=== PATIENT | female | born 1935 | race Caucasian/White ===

== ENCOUNTER 2019-03-20 23:50 | Inpatient (IN) | payer SELFPAY ==
--- NOTE | 2019-03-21 | ED ---
Abdominal Pain/Female - HPI Summary HPI Summary: Per son who is acting as bombsight specialist for patient, patient complains of sudden onset nausea and abdominal pain while sitting down to dinner tonight at a restaurant with subsequent vomiting. One episode of diarrhea this morning. Unsure of bowel movements over the past couple days. Denies fever, cough, sore throat, CP, SOB, change in urine. Medical history is hypertension, prior TIA. Son states patient currently anticoagulated for TIA. - History of Current Complaint Stated Complaint: NAUSEA PER PT Hx Obtained From: Family/Fur Finisher Tailor Onset/Duration: Sudden Onset, Lasting Hours Severity Initially: Moderate Severity Currently: Moderate Pain Intensity: 6 Pain Scale Used: 0-10 Numeric Location: Diffuse Radiates: No Character: Sharp, Cramping Aggravating Factor(s): Nothing Alleviating Factor(s): Nothing Associated Signs and Symptoms: Positive: Nausea, Vomiting, Diarrhea Allergies/Adverse Reactions: Allergies Allergy/AdvReac Type Severity Reaction Status Date / Time ibuprofen [From Advil] Allergy Unknown Verified 03/21/19 00:03 Reaction Details Home Medications: Home Medications NIFEdipine [Nifedipine ER] 60 mg PO SEE INSTRUCTIONS 03/21/19 [History Confirmed 03/21/19] Omeprazole 1 tab PO DAILY 03/21/19 [History Confirmed 03/21/19] Sandoz Cardio 100 mg PO DAILY 03/21/19 [History Confirmed 03/21/19] Travoprost/Timolol 1 drop BOTH EYES DAILY 03/21/19 [History Confirmed 03/21/19] PMH/Surg Hx/FS Hx/Imm Hx Endocrine/Hematology History: Reports: Hx Anticoagulant Therapy Cardiovascular History: Denies: Hx Pacemaker/ICD History: Reports: Hx Dialysis Sensory History: 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 Opthamlomology History: 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 Neurological History: Reports: Hx Transient Ischemic Attacks (TIA) Infectious Disease History: No Infectious Disease History: Reports: Traveled Outside the in Last 30 Days - [place] - Family History Known Family History: Positive: Non-Contributory - Social History Alcohol Use: Occasionally Hx Substance Use: No Hx Tobacco Use: No Review of Systems Constitutional: Negative Eyes: Negative ENT: Negative Cardiovascular: Negative Respiratory: Negative Positive: Abdominal Pain, Vomiting, Diarrhea, Nausea Genitourinary: Negative Musculoskeletal: Negative Skin: Negative Neurological: Negative Psychological: Normal All Other Systems Reviewed And Are Negative: Yes Physical Exam Triage Information Reviewed: Yes Vital Signs On Initial Exam: Initial Vitals Temp Pulse Resp BP Pulse Ox 97.8 F 54 18 87/60 97 03/20/19 23:51 03/20/19 23:51 03/20/19 23:51 03/20/19 23:51 03/20/19 23:51 Vital Signs Reviewed: Yes Appearance: Positive: Well-Appearing Skin: Positive: Warm Head/Face: Positive: Normal Head/Face Inspection Eyes: Positive: Normal Neck: Positive: Supple Respiratory/Lung Sounds: Positive: Clear to Auscultation Cardiovascular: Positive: Normal Abdomen Description: Positive: Other: - Diffuse abdominal pain with palpation. Musculoskeletal: Positive: Normal Neurological: Positive: Normal Psychiatric: Positive: Normal AVPU Assessment: Alert - [place] Coma Scale Best Eye Response: 4 - Spontaneous Best Motor Response: 6 - Obeys Commands Best Verbal Response: 5 - Oriented Coma Scale Total: 15 Procedures - Sedation Patient Received Moderate/Deep Sedation with Procedure: No Diagnostics - Vital Signs Vital Signs Temp Pulse Resp BP Pulse Ox 03/20/19 23:51 97.8 F 54 18 87/60 97 - Laboratory Result Diagrams: 03/22/19 04:37 03/22/19 04:37 Lab Statement: Any lab studies that have been ordered have been reviewed, and results considered in the medical decision making process. Re-Evaluation - Re-Evaluation First Eval Re-Evaluation Time: 05:50 Comment: CT concerning for colitis. Given flagyl. Also possible cholecystitis but neg murphys on exam. Admit to [facility] Abdominal Pain Fem Course/Dx - Course Course Of Treatment: Per son who is acting as bombsight specialist for patient, patient complains of sudden onset nausea and abdominal pain while sitting down to dinner tonight at a restaurant with subsequent vomiting. One episode of diarrhea this morning. Unsure of bowel movements over the past couple days. Denies fever, cough, sore throat, CP, SOB, change in urine. Medical history is hypertension, prior TIA. Son states patient currently anticoagulated for TIA. BP 87/60. Vital signs otherwise within normal limits. WBC 11.2. Labs otherwise unremarkable. Urine pending. CT abdomen and pelvis with contrast pending. CT abdomen and pelvis positive for colitis and possible cholelithiasis. Admitted to hospitalist. - Diagnoses Provider Diagnoses: Colitis Discharge ED - Sign-Out/Discharge Documenting (check all that apply): Sign-Out Patient Signing out patient TO: Marsha Wei - Discharge Plan Condition: Stable Disposition: ADMITTED TO [facility] - Billing Disposition and Condition Condition: STABLE Disposition: Admitted to [facility] - Attestation Statements Provider Attestation: I agree with the documentation of the PANTERA. I have seen the patient, please see my note in the chart. Marsha Wei MD
[2019-03-21] MEDS ORDERED: NS 0.9% 1000 ML** 1,000 ML IV ONE ×2 (00:06→11:09)
[2019-03-21] MEDS ORDERED: Ondansetron INJ* 2 MG/ML VIAL IV ONE (00:06)
[2019-03-21 01:01] LABS: ABS Lymphocytes 0.5 10^3/ul (1.0-4.8); ABS Monocytes 0.3 10^3/ul (0-0.8); ABS Neutrophils 10.5 10^3/ul (1.5-7.7); Hematocrit 34 % (35-47); Hemoglobin 11.5 g/dL (12.0-16.0); Mean Corpuscular HGB Conc 34 g/dL (31-36); Mean Corpuscular Hemoglobin 27 pg (27-31); Mean Corpuscular Volume 81 fL (80-97); Platelet Count 238 10^3/uL (150-450); Red Blood Count 4.22 10^6 /uL (3.70-4.87); Red Cell Distribution Width 14 % (10-15); White Blood Count 11.2 10^3/uL (3.5-10.8)
[2019-03-21 01:16] LABS: C Reactive Protein 1.28 mg/L (<8.01)
[2019-03-21] MEDS ORDERED: Morphine 4 MG/ML VIAL (1 ml) 4 MG/ML VIAL IV ONE (01:57)
[2019-03-21 02:06] LABS: Urine Appearance Turbid; Urine Bacteria 1+ (Absent); Urine Bilirubin Negative (Negative); Urine Blood 2+ (Negative); Urine Color Amber; Urine Glucose Negative (Negative); Urine Ketones Trace (Negative); Urine Nitrite Positive (Negative); Urine Protein Negative (Negative); Urine Red Blood Cell Trace(0-2/hpf) (Absent); Urine Specific Gravity 1.016 (1.010-1.030); Urine Squamous Epithelial Cell Present (Absent); Urine Urobilinogen Negative (Negative); Urine White Blood Cell 3+(>20/hpf) (Absent)
--- NOTE | 2019-03-21 02:37 | ED ---
Progress - Progress Note Progress Note: This pt is a sign out from Cirilo Espino at shift change [address] A/P and disposition. - Results/Orders Results/Orders: Her Gallbladder US found that she has the followin. Cholelithiasis. No abnormal thickening of the gallbladder wall. Negative sonographic Conti's sign. 2. Multiple echogenic foci scattered throughout the liver parenchyma. Recommend CT abdomen with contrast using a hepatic protocol. Abdomen/Pelvis CT: 1. There is excess salt thickening noted of the cecum and ascending colon with surrounding inflammatory changes. The cecum is noted to be dilated measuring approximately 6.7 x 5.2 CM. There is question of pneumatosis noted in the cecum. Findings are concerning for colitis. 2. There is wall thickening noted of the gallbladder with a large gallstone noted within the gallbladder. Findings are concerning for acute cholecystitis. Recommend hepatobiliary scan for further evaluation. 3. There is a compression deformity noted of the L1 vertebral body which appears to be chronic in nature recommend clinical correlation for point tenderness MRI may be performed for further evaluation. Re-Evaluation - Re-Evaluation First Eval Re-Evaluation Time: 05:50 Comment: CT concerning for colitis. Given flagyl. Also possible cholecystitis but neg murphys on exam. Admit to [facility] Course/Dx - Diagnoses Provider Diagnoses: Colitis Discharge ED - Sign-Out/Discharge Documenting (check all that apply): Patient Departure - admitted, Receiving Sign -Out Receiving patient FROM: Cirilo Espino - Discharge Plan Condition: Stable Disposition: ADMITTED TO [facility] Prescriptions: Ondansetron ODT TAB* [Zofran 4 MG Odt TAB*] 4 mg PO Q8H PRN 4 Days #14 tab.odt PRN Reason: Nausea Referrals: No Primary Care Phys,NOPCP [Primary Care Provider] - - Billing Disposition and Condition Condition: STABLE Disposition: Admitted to [facility] - Attestation Statements Document Initiated by Scribe: Yes Documenting Scribe: Magdaleno Nowak Provider For Whom Ayush is Documenting (Include Credential): Marsha Wei MD Scribe Attestation: Magdaleno Easton scribed for Marsha Wei MD on 03/21/19 at 0605. Scribe Documentation Reviewed: Yes Provider Attestation: The documentation as recorded by the Magdaleno sparrow accurately reflects the service I personally performed and the decisions made by me, Marsha Wei MD Status of Scrmarisela Document: Viewed
[2019-03-21] MEDS ORDERED: cefTRIAXone(*) 1 GM in NS 0.9% 50 ML* 50 ML IVPB ONE (02:38)
[2019-03-21 03:04] LABS: Albumin 3.9 g/dL (3.2-5.2); BUN/Creatinine Ratio 38.8 (8-20); Calcium 8.7 mg/dL (8.6-10.3); EGFR African American 51.4 (>60); EGFR Non-African American 42.5 (>60); Globulin 3.9 g/dL (2-4); Total Bilirubin 0.4 mg/dL (0.2-1.0); Total Protein 7.8 g/dL (6.4-8.9)
[2019-03-21] MEDS ORDERED: Iodixanol* (CONTRAST) 320 MG/ML 100 ML SDV IV ONE (03:13)
[2019-03-21] MEDS ORDERED: metroNIDAZOLE IV 500 MG/100ML* 500 MG/100 ML BAG IVPB ONE (05:58)
[2019-03-21] MEDS ORDERED: Ondansetron INJ* 2 MG/ML VIAL IV PRN (08:47)
[2019-03-21] MEDS ORDERED: Acetaminophen TAB* 325 MG PO PRN (08:47)
[2019-03-21] MEDS ORDERED: Piperacillin/Tazobac ADVAN(*) 3.375 GM in NS 0.9% 100 ML* 100 ML IVPB ONE (08:58)
[2019-03-21] MEDS ORDERED: Pantoprazole IV* 40 MG IV SCH (09:00)
[2019-03-21] MEDS ORDERED: NS 0.9% 1000 ML** 1,000 ML IV SCH ×2 (09:00→10:53)
[2019-03-21] MEDS ORDERED: Zosyn per Pharmacy* NOTE FOLLOW UP SCH (09:00)
[2019-03-21 09:17] LABS: ABS Lymphocytes 0.4 10^3/ul (1.0-4.8); ABS Monocytes 0.3 10^3/ul (0-0.8); ABS Neutrophils 14.5 10^3/ul (1.5-7.7); Hematocrit 34 % (35-47); Hemoglobin 11.5 g/dL (12.0-16.0); Lymphocyte % 2.5 %; Mean Corpuscular HGB Conc 34 g/dL (31-36); Mean Corpuscular Hemoglobin 27 pg (27-31); Mean Corpuscular Volume 81 fL (80-97); Mean Platelet Volume 7.3 fL (7.4-10.4); Platelet Count 226 10^3/uL (150-450); Red Blood Count 4.21 10^6 /uL (3.70-4.87); Red Cell Distribution Width 15 % (10-15); White Blood Count 15.2 10^3/uL (3.5-10.8)
[2019-03-21 09:32] LABS: Albumin 3.4 g/dL (3.2-5.2); Albumin/Globulin Ratio 0.9 (1-3); BUN/Creatinine Ratio 38.4 (8-20); Calcium 8.1 mg/dL (8.6-10.3); EGFR African American 56.2 (>60); EGFR Non-African American 46.5 (>60); Globulin 3.6 g/dL (2-4); Indirect Bilirubin 0.2 mg/dL (0.3-1.0); Magnesium 1.6 mg/dL (1.9-2.7); Potassium 3.7 mmol/L (3.5-5.0); Total Bilirubin 0.3 mg/dL (0.2-1.0)
[2019-03-21 09:33] LABS: Activated Partial Thrombo Time 28.5 seconds (26.0-38.0); INR 1.08 (0.82-1.09)
[2019-03-21] MEDS ORDERED: NIFEdipine ER TAB* 60 MG PO SCH (10:00)
[2019-03-21] MEDS ORDERED: Lidocaine 2% PF * 5 ML VIAL ONE (11:38)
[2019-03-21] MEDS ORDERED: Succinylcholine* 20 MG/ML 10 ML VIAL ONE (11:38)
[2019-03-21] MEDS ORDERED: Propofol* 10 MG/ML 20 ML BTL ONE (11:38)
[2019-03-21] MEDS ORDERED: Rocuronium* 10 MG/ML VIAL ONE (11:38)
[2019-03-21] MEDS: ZOSYN 3.375 GM Q8H per EXTENDED INFUSION IVPB SCH ×4 (12:48→21:26)
[2019-03-21] MEDS ORDERED: KETAMINE HCL* 50 MG/ML 10 ML VIAL ONE (13:17)
[2019-03-21] MEDS ORDERED: fentaNYL* 50 MCG/ML 2 ML VIAL (100 MCG VIAL) ONE (13:17)
[2019-03-21] MEDS ORDERED: HYDROmorphone INJ1* 1 MG/ML SYRINGE ONE (13:55)
[2019-03-21] MEDS ORDERED: Heparin VIAL(*) 5000 UNITS/ML VIAL (FIVE THOUSAND) SUBCUT SCH (14:00)
[2019-03-21] MEDS ORDERED: Bupivacaine 0.5%* 50 ML MDV VIAL ONE (14:02)
[2019-03-21] MEDS ORDERED: Phenylephrine 40 MCG/ML SYRINGE ONE (14:14)
[2019-03-21] MEDS ORDERED: fentaNYL* 50 MCG/ML 2 ML VIAL (100 MCG VIAL) IV PRN (14:59)
[2019-03-21] MEDS ORDERED: Acetaminophen IV 1GM/100ML * 1,000 MG/100 ML VIAL IVPB ONE (14:59)
[2019-03-21] MEDS ORDERED: HYDROmorphone INJ1* 1 MG/ML SYRINGE IV PRN (14:59)
[2019-03-21] MEDS ORDERED: DiMENhydriNATE IV* 50 MG/ML VIAL IV PUSH PRN (14:59)
[2019-03-21] MEDS ORDERED: Naloxone* 0.4 MG/ML 1 ML VIAL IV PRN (14:59)
--- NOTE | 2019-03-21 15:29 | HP ---
HISTORY AND PHYSICAL: DATE OF ADMISSION: 03/21/19 CHIEF COMPLAINT: Abdominal pain, nausea, and vomiting. SUBJECTIVE: This is an 84-year-old female who is here visiting from [place] and staying with her son here in [place]. She has been in the [place] for about a week and her son states that she was within her usual state of health up until this afternoon. They touring the city tour here in [place]. They went to one of the state choud[place], had breakfast earlier this morning (some bagel and cream cheese), they skipped lunch, and they were heading toward a restaurant to have dinner. As soon as they arrived to the restaurant and prior to ordering any food, the patient reported to her son that she was having a uneasy feeling in her stomach, some nauseous and abdominal pain. They excused themselves from the restaurant and while she was still in the care on her way to the hotel she was dry heaving. When they arrived to the hotel she had 1 episode of bilious vomiting. She started complaining to the son of feeling dizzy, lightheaded, increased abdominal pain, and the son brought her to the ER to be evaluated. She was seen in our emergency room around midnight 00:00. At that time, she was giving some Zofran and they were thinking to discharge her home on oral Bactrim for a presumed UTI. She had further abdominal pain and vomit in the emergency room. Hence a CT scan of the abdomen and pelvis was ordered at 1:30 in the morning and the report revealed "excess thickening of the cecum and ascending colon with some surrounding inflammatory changes with the cecum dilated measuring up to 6.7 x 5.2 cm with some pneumatosis in the cecum concerning for colitis..." and there was some regarding thickening of the gallbladder with large gallstone. Then the patient was kept in the emergency room and her care was transferred to the new emergency room provider at 2:30 am. The ultrasound of the gallbladder report revealed cholelithiasis without any evidence of cholecystitis. She was given ceftriaxone, Flagyl, was medicated for her pain and the [facility] hospitalist service was called for admission. I received a sign out to evaluate the patient in the ER pending admission. She was seen and evaluated by me and history was obtained from the son at bedside, who was assisting with the translation, his name is Stan, and his phone number is [phone]. History was obtained with some difficulty, but was able to confirm the below: The patient apparently had similar episode about a year and a half ago in [place] where she had similar symptoms at that time. She was advised for elective cholecystectomy, and also she had a colonoscopy for what "similar abdominal pain" and she was treated with antibiotic and was discharged. No surgery at that time was performed. The son had no further knowledge about her medical history as he has not seen her and he has not had any record available at his disposal at this time. He did tell that she did not follow up as instructed to evaluate her gallbladder nor did she have any further testing that he knew of. PAST MEDICAL HISTORY: 1. Hypertension 2. History of TIA. 3. History of glaucoma. 4. History of hospitalization about one and a half years ago in [place] for similar episode that yielded known gallbladder disease that required elective surgery and some bowel inflammation, which required colonoscopy that led to treatment with IV antibiotic for which he could not give me any further detail. 5. Hyperlipidemia. 6. GERD. MEDICATIONS: Her medication reviewed by me: 1. Nifedipine 60 mg daily. 2. Atorvastatin 20 mg at bedtime. 3. Losartan 50 mg daily. 4. Toprol-XL 50 mg daily. 5. Omeprazole 20 daily. 6. Travoprost/timolol 1 drop each eye at bedtime. FAMILY HISTORY: Unknown to the son other than they were healthy both her parents. SOCIAL HISTORY: No alcohol. No tobacco use. No drugs. She is . Five kids visiting from [place], not [place] speaker. REVIEW OF SYSTEMS: Acute nausea, vomiting, abdominal pain. Remaining limited to the HPI given the language barrier PHYSICAL EXAMINATION GENERAL: She is awake, alert, oriented, in mild distress given her abdominal pain and GI symptoms. VITAL SIGNS: Blood pressure 111/61, pulse 98, temperature 97.8, satting 94%. HEAD AND NECK: Normocephalic, atraumatic. supple, no carotid bruit, no JVD LUNGS: Clear to auscultation. no rhonchi, no wheezing. good air flow CARDIOVASCULAR: S1, S2. Tachycardic. No murmur. ABDOMEN: Tender in the right lower quadrant on palpation, positive rebound. She does have negative Conti sign. bowel sound diminished EXTREMITIES: No pedal edema. Moving upper and lower extremity. RAW MATERIAL PLANNER: There is no motor or focal sensory deficit. Moving upper and lower extremity. DIAGNOSTIC STUDIES/LAB DATA: ER Work up CBC - White count 11.2, hemoglobin 11.4, hematocrit 34, platelets 238. BMP -Sodium 131, potassium 4, chloride 102, bicarb 20, BUN 47, creatinine 1.2, glucose 150, calcium 8.4. LFT- Total bili 0.4, AST 16, ALT 8, lipase 43, CRP 1.38. Urinalysis- 3+ leukocyte, 3+ WBC, 1+ bacteria. CT scan of abdomen and pelvis at 1:30 in the morning revealed excess thickening noted in the cecum and ascending colon with surrounding inflammatory changes with dilated cecum up to 6.7 and 5.2 cm and some wall thickening of the gallbladder. Gallbladder ultrasound performed at 2359 reveals cholelithiasis, no abdominal wall thickening. Negative Conti sign. IMPRESSION: This is an 84-year-old female who comes in with an acute abdominal pain, followed with nausea and vomiting. Her lab from midnight white count revealed 11.2 with mild hyponatremia and mild metabolic acidosis as manifested with a bicarb of 20 and acute kidney injury with BUN 47/1.2. She will be admitted for acute abdominal pain, most likely secondary to her colitis/ peritonitis and less likely from her cholecystitis. 1. Abdominal pain secondary to acute colitis with peritonitis sign. - The patient was seen by me as initial encounter in the emergency room around 8 a.m. History obtained via the help of her son that provided translation. - I am little concerned that her condition has slightly worsened than her initial presentation. (Given her clinical exam) - She is status post Rocephin and Flagyl, I am going to escalate her to Zosyn stat, then q.6 hours. - Start on IV fluid 1 L bolus then put her on 125 mL/h. - Send for repeat stat labs including CBC and chemistry, LFT as well as lactic acid. - Send for blood cultures stat. - EKG stat given her tachycardia - I consulted Surgery Dr. Garcia who was in the OR and I was able to be patched to him and I informed him about the consultation in the ER. - I consulted GI with Dr. Boss in the event the patient may require colonoscopy if the patient was nonsurgical (pending Dr. Garcia evaluation). - Of course she will be maintained n.p.o. and will follow up with surgery and GI recommendation. - Morphine p.r.n. 2 mg-4mg PRN pending severity. 2. Cholecystitis on her ultrasound. - I doubt that she does have an acute intervention given the negative exam, negative Conti. - Nonetheless n.p.o. - Surgery consultation as above. - IV fluids. - Zosyn. 3. Acute colitis with dilated cecum. - Surgical consult to see if she will benefit from surgical intervention versus medical management. - Dr. Garcia was notified. Unfortunately, he is in the surgery now, but I relayed the message to him for the consultation. - N.P.O. - IVF - Antibiotic as above with the Zosyn. 4. History of hypertension. We will continue her losartan with holding parameter, Metoprolol with holding parameter. 5. History of gastroesophageal reflux disease. Continue proton pump inhibitor , but we will place her on IV Protonix. 6. History of glaucoma. Continue travoprost. [id number]/[facility] #: [id number] ALEX
[2019-03-21] MEDS ORDERED: Sugammadex * 200 MG/2 ML VIAL IV PUSH ONE (15:32)
[2019-03-21] MEDS ORDERED: Ondansetron INJ* 2 MG/ML VIAL ONE (15:32)
--- NOTE | 2019-03-21 16:14 | BRIEFOPN ---
Brief Operative/Procedure Note - Operation Details Pre-Op Diagnosis: Transmural necrosis, right colon Post-Op Diagnosis: as above Procedures: Exploratory laparotomy; right colectomy Surgeon(s)/Proceduralists: Dr. Garcia. Assist: OMEGA Patricia; ION Palma Anesthesia: GET; Dr. Singh Estimated Blood Loss: 100ml; IV Fluids: 2300ml crystalloid Findings: same as above Specimen(s)/Culture(s) Description: right colon Complications: none
[2019-03-21] MEDS ORDERED: Morphine INJ* 4 MG/ML 1 ML SYRINGE (NEW SYRINGE VERSION) IV PRN (17:53)
[2019-03-21] MEDS ORDERED: Acetaminophen SUPP* 650 MG SUPP PR PRN (17:57)
[2019-03-21] MEDS ORDERED: NS 0.9% IV SCH ×2 (18:00)
[2019-03-21] MEDS ORDERED: POTASSIUM CHLORIDE IV SCH ×2 (18:00)
[2019-03-21] MEDS: Famotidine IV* 10 MG/ML 2 ML (20 mg) IV SCH (18:15)
[2019-03-21 18:36] LABS: Urine Appearance Clear; Urine Bacteria Absent (Absent); Urine Bilirubin Negative (Negative); Urine Blood 1+ (Negative); Urine Color Yellow; Urine Glucose Negative (Negative); Urine Ketones Negative (Negative); Urine Nitrite Negative (Negative); Urine Protein 1+(30 mg/dL) (Negative); Urine Red Blood Cell 3+(>10/hpf) (Absent); Urine Specific Gravity 1.027 (1.010-1.030); Urine Urobilinogen Negative (Negative); Urine White Blood Cell 2+(11-20/hpf) (Absent)
--- NOTE | 2019-03-21 20:13 | PN ---
Date of Service: 03/21/19 Critical Care Services: 84 y/o [place] female (visiting [place]) underwent laparotomy today for suspected bowel ischemia and had a partial ritht colectomy - brought to ICU postop and has done well. Vital Signs: Temp Pulse Resp BP SpO2 FiO2 98.0 F 77 15 145/66 95 03/21/19 19:59 03/21/19 18:00 03/21/19 18:00 03/21/19 17:40 03/21/19 18:00 Physical Exam: Gen: HEENT: Lungs: Cardiac: Abdomen: Extremities: Neuro: Fluid Balance (Past 24 Hours): I= O= Net Intake & Output 03/19/19 03/20/19 03/21/19 03/22/19 06:59 06:59 06:59 06:59 Intake Total 1050 1500 Output Total 950 Balance 1050 550 Weight 138 lb 147 lb 7.828 oz Intake: IV Fluids 1050 1500 LR 1300 Output: Urine 400 Adan 450 Estimated Blood Loss 100 Other: Estimated Blood Loss per OR notes.Not observed by sign writer letterer or painter; hospital practice for AUTO GLASS TECHNICIAN to relay Comment Labs: Laboratory Results - last 24 hr 03/21/19 03/21/19 03/21/19 00:53 00:53 01:43 WBC 11.2 H RBC 4.22 Hgb 11.5 L Hct 34 L MCV 81 MCH 27 MCHC 34 RDW 14 Plt Count 238 MPV 7.0 L Neut % (Auto) 93.2 Lymph % (Auto) 4.0 Geary % (Auto) 2.5 Eos % (Auto) 0.0 Baso % (Auto) 0.3 Absolute Neuts (auto) 10.5 H Absolute Lymphs (auto) 0.5 L Absolute Monos (auto) 0.3 Absolute Eos (auto) 0.0 Absolute Basos (auto) 0.0 Absolute Nucleated RBC 0.0 Nucleated RBC % 0.0 INR (Anticoag Therapy) APTT Sodium 131 L Potassium 4.0 Chloride 102 Carbon Dioxide 20 L Anion Gap 9 BUN 47 H Creatinine 1.21 H Est GFR ( Amer) 51.4 Est GFR (Non-Af Amer) 42.5 BUN/Creatinine Ratio 38.8 H Glucose 150 H Lactic Acid Calcium 8.7 Phosphorus Magnesium Total Bilirubin 0.40 Direct Bilirubin Indirect Bilirubin AST 16 ALT 8 Alkaline Phosphatase 75 C-Reactive Protein 1.28 Total Protein 7.8 Albumin 3.9 Globulin 3.9 Albumin/Globulin Ratio 1.0 Amylase Lipase 43 Urine Color Lolly Urine Appearance Turbid Urine pH 6.0 Ur Specific Gate 1.016 Urine Protein Negative Urine Ketones Trace A Urine Blood 2+ A Urine Nitrate Positive A Urine Bilirubin Negative Urine Urobilinogen Negative Ur Leukocyte Esterase 3+ A Urine WBC (Auto) 3+(>20/hpf) A Urine RBC (Auto) Trace(0-2/hpf) Ur Squamous Epith Cells Present A Urine Bacteria 1+ A Urine Glucose Negative 03/21/19 03/21/19 03/21/19 08:59 09:05 09:05 WBC RBC Hgb Hct MCV MCH MCHC RDW Plt Count MPV Neut % (Auto) Lymph % (Auto) Geary % (Auto) Eos % (Auto) Baso % (Auto) Absolute Neuts (auto) Absolute Lymphs (auto) Absolute Monos (auto) Absolute Eos (auto) Absolute Basos (auto) Absolute Nucleated RBC Nucleated RBC % INR (Anticoag Therapy) 1.08 APTT 28.5 Sodium 133 L Potassium 3.7 Chloride 105 Carbon Dioxide 21 L Anion Gap 7 BUN 43 H Creatinine 1.12 H Est GFR ( Amer) 56.2 Est GFR (Non-Af Amer) 46.5 BUN/Creatinine Ratio 38.4 H Glucose 148 H Lactic Acid 0.9 Calcium 8.1 L Phosphorus 4.0 Magnesium 1.6 L Total Bilirubin 0.30 Direct Bilirubin 0.10 Indirect Bilirubin 0.2 L AST 14 ALT 8 Alkaline Phosphatase 56 C-Reactive Protein Total Protein 7.0 Albumin 3.4 Globulin 3.6 Albumin/Globulin Ratio 0.9 L Amylase 95 Lipase 39 Urine Color Urine Appearance Urine pH Ur Specific Gate Urine Protein Urine Ketones Urine Blood Urine Nitrate Urine Bilirubin Urine Urobilinogen Ur Leukocyte Esterase Urine WBC (Auto) Urine RBC (Auto) Ur Squamous Epith Cells Urine Bacteria Urine Glucose 03/21/19 03/21/19 09:05 18:13 WBC 15.2 H RBC 4.21 Hgb 11.5 L Hct 34 L MCV 81 MCH 27 MCHC 34 RDW 15 Plt Count 226 MPV 7.3 L Neut % (Auto) 95.2 Lymph % (Auto) 2.5 Geary % (Auto) 2.2 Eos % (Auto) 0.0 Baso % (Auto) 0.1 Absolute Neuts (auto) 14.5 H Absolute Lymphs (auto) 0.4 L Absolute Monos (auto) 0.3 Absolute Eos (auto) 0.0 Absolute Basos (auto) 0.0 Absolute Nucleated RBC 0.0 Nucleated RBC % 0.0 INR (Anticoag Therapy) APTT Sodium Potassium Chloride Carbon Dioxide Anion Gap BUN Creatinine Est GFR ( Amer) Est GFR (Non-Af Amer) BUN/Creatinine Ratio Glucose Lactic Acid Calcium Phosphorus Magnesium Total Bilirubin Direct Bilirubin Indirect Bilirubin AST ALT Alkaline Phosphatase C-Reactive Protein Total Protein Albumin Globulin Albumin/Globulin Ratio Amylase Lipase Urine Color Yellow Urine Appearance Clear Urine pH 6.0 Ur Specific Gate 1.027 Urine Protein 1+(30 mg/dl) A Urine Ketones Negative Urine Blood 1+ A Urine Nitrate Negative Urine Bilirubin Negative Urine Urobilinogen Negative Ur Leukocyte Esterase 1+ A Urine WBC (Auto) 2+(11-20/hpf) A Urine RBC (Auto) 3+(>10/hpf) A Ur Squamous Epith Cells Urine Bacteria Absent Urine Glucose Negative Plan: Critical Care Time:
--- NOTE | 2019-03-21 20:18 | CONS ---
CONSULTATION REPORT: DATE OF CONSULT: 03/21/19 REFERRING PROVIDER: Linus Fox MD, hospitalist. REASON FOR CONSULT: Abdominal pain, nausea, and vomiting. HISTORY OF PRESENT ILLNESS: The patient is an 84-year-old woman who is visiting from [place]. She does not speak Estonian, but is with her son. He lives in the [place] area and they were traveling through [place] on vacation when later in the day yesterday she was eating at a restaurant and she developed some nausea with some dry heaves as well as right-sided abdominal pain. They went back to the hotel and later in the evening she started to have worsening discomfort and had some vomiting and she presented to the emergency room here very early this morning. At that time, she was noted to be afebrile with essentially unremarkable vital signs other than slight tachycardia. She was noted to have right-sided abdominal discomfort. Laboratory workup included a white blood cell count of 11 ,000 and she was slightly anemic. Electrolytes, BUN and creatinine were remarkable for having a BUN and creatinine of 47 and 1.21 and a carbon dioxide of 20. Her C-reactive protein was unremarkable as well as her lipase. She gives a history through the son of having some possible gallbladder issues in the past where she was admitted to the hospital 1 year ago. We do not have these records and the son is not aware as he does not live with her and she may have been apparently treated with antibiotics, but it is unclear as to whether there was discussion regarding cholecystectomy or were there any colonic problems. She has been doing well since that time. She underwent a CT scan of the abdomen and pelvis later this morning. I did review all of these images. This shows wall thickening noted in the cecum and ascending colon with surrounding inflammatory changes. The cecum was dilated up to 6.7 cm and there was concern about possible pneumatosis in the cecum, also noted was some wall thickening of the gallbladder with a large gallstone within the gallbladder itself. There was no pericholecystic inflammation, however. The patient was admitted to the hospitalist service, started on IV antibiotics and IV fluids and surgical consultation was obtained this morning. PAST MEDICAL HISTORY: Taken mainly from the patient's son who speaks Estonian. 1. Hypertension. 2. History of TIA. 3. Possible gallbladder issue versus colitis with right-sided abdominal pain 1 year ago. 4. Glaucoma. 5. Hyperlipidemia. 6. GERD. MEDICATIONS: Include: 1. Nifedipine. 2. Atorvastatin. 3. Losartan. 4. Toprol. 5. Omeprazole. 6. Travoprost. 7. An antiplatelet agent. ALLERGIES: She is allergic to IBUPROFEN. SOCIAL HISTORY: She does not drink alcohol or use tobacco. She does not use illicit drugs. She is ; she has 5 children, and she is visiting from [place], and she does not speak Estonian. REVIEW OF SYSTEMS: Other than above taken from the son, no other pertinent positives. PHYSICAL EXAM: She was afebrile, pulse rate was in the mid 90s, systolic blood pressure 105. In general, she is an elderly female who appeared to be somewhat ill and quite fatigued and uncomfortable. Oral mucosa is quite dry. Trachea was midline. Lungs were clear to auscultation with diminished breath sounds at the bases. Heart was regular rate and rhythm without murmurs, rubs, or gallops. Her abdomen is distended and slightly firm. She has significant tenderness in the right lower quadrant with peritoneal irritation with peritoneal signs. She has tenderness in the left abdomen without peritoneal irritation, however. Psychiatric: She appears to be awake and alert. IMPRESSION: Rather sudden onset of right-sided abdominal discomfort with a leukocytosis. Repeat white blood cell count shows an elevation to 15 despite antibiotics. A lactic acid was unremarkable later in the emergency room and a C- reactive protein is normal. I reviewed the CT scan. This was very concerning for its appearance. This does not appear to be diverticulitis and is some sort of colitis and with her history, age and physical examination, I am concerned that this may be vascular etiology with ischemia of the intestine. It does not appear to be diverticulitis and also does not appear to be infectious, as she is having no diarrhea or bloody diarrhea or crampy pain. I discussed all of this with the patient and her son at length here on the floor. She has peritonitis mainly in the right side of the abdomen and with her constellation of symptoms and the CT scan findings, I feel strongly and recommend that she undergo an emergent exploratory laparotomy. Concern obviously is bowel ischemia, which can be obviously life-threatening. After our discussion, the patient gives her consent after discussion with her son who is acting as her fashion patternmaker and we will continue our fluid resuscitation, transfer to the intensive care unit and plan for surgery early this afternoon. PLAN: Exploratory laparotomy, possible bowel resection, possible cholecystectomy and possible ostomy today. The procedure was discussed with the patient and her son, and the risks of, but not limited to, bleeding, infection, intraabdominal abscess formation, injury to peritoneal and retroperitoneal structures, possibility of an ostomy which most likely be temporary, the risk of sepsis, , pulmonary failure, renal insufficiency, and blood clots were all explained. They understand and give their consent to proceed. [id number]/[facility] #: [id number] ALEX
[2019-03-21] MEDS: NS 0.9% IV SCH (20:34)
[2019-03-21] MEDS: POTASSIUM CHLORIDE IV SCH (20:34)
--- NOTE | 2019-03-21 20:47 | PN ---
Date of Service: 03/21/19 Critical Care Services: 84 y/o Ethiopian female admitted last night with abdominal pain and ? bowel ischemia underwent lapareotomy today with partial right colectomy and cholecystectomy. Brought to ICU postop and has done well. Vital Signs: Temp Pulse Resp BP SpO2 FiO2 98.0 F 81 17 136/69 96 Physical Exam: Gen:Resting comfortably Lungs: Clear Cardiac: No murmurs Abdomen: Surgical dressing intact. Extremities: No cyanosis or edema Fluid Balance (Past 24 Hours): 03/19/19 03/20/19 03/21/19 06:59 06:59 06:59 Intake Total 1050 Output Total Balance 1050 Weight 138 lb Intake: IV Fluids 1050 LR Output: Urine Adan Estimated Blood Loss Other: Estimated Blood Loss Comment Labs: Laboratory Results - last 24 hr 03/21/19 03/21/19 03/21/19 00:53 00:53 01:43 WBC 11.2 H RBC 4.22 Hgb 11.5 L Hct 34 L MCV 81 MCH 27 MCHC 34 RDW 14 Plt Count 238 MPV 7.0 L Neut % (Auto) 93.2 Lymph % (Auto) 4.0 Riley % (Auto) 2.5 Eos % (Auto) 0.0 Baso % (Auto) 0.3 Absolute Neuts (auto) 10.5 H Absolute Lymphs (auto) 0.5 L Absolute Monos (auto) 0.3 Absolute Eos (auto) 0.0 Absolute Basos (auto) 0.0 Absolute Nucleated RBC 0.0 Nucleated RBC % 0.0 INR (Anticoag Therapy) APTT Sodium 131 L Potassium 4.0 Chloride 102 Carbon Dioxide 20 L Anion Gap 9 BUN 47 H Creatinine 1.21 H Est GFR ( Amer) 51.4 Est GFR (Non-Af Amer) 42.5 BUN/Creatinine Ratio 38.8 H Glucose 150 H Lactic Acid Calcium 8.7 Phosphorus Magnesium Total Bilirubin 0.40 Direct Bilirubin Indirect Bilirubin AST 16 ALT 8 Alkaline Phosphatase 75 C-Reactive Protein 1.28 Total Protein 7.8 Albumin 3.9 Globulin 3.9 Albumin/Globulin Ratio 1.0 Amylase Lipase 43 Urine Color Lolly Urine Appearance Turbid Urine pH 6.0 Ur Specific [place] 1.016 Urine Protein Negative Urine Ketones Trace A Urine Blood 2+ A Urine Nitrate Positive A Urine Bilirubin Negative Urine Urobilinogen Negative Ur Leukocyte Esterase 3+ A Urine WBC (Auto) 3+(>20/hpf) A Urine RBC (Auto) Trace(0-2/hpf) Ur Squamous Epith Cells Present A Urine Bacteria 1+ A Urine Glucose Negative 03/21/19 03/21/19 03/21/19 08:59 09:05 09:05 WBC RBC Hgb Hct MCV MCH MCHC RDW Plt Count MPV Neut % (Auto) Lymph % (Auto) Riley % (Auto) Eos % (Auto) Baso % (Auto) Absolute Neuts (auto) Absolute Lymphs (auto) Absolute Monos (auto) Absolute Eos (auto) Absolute Basos (auto) Absolute Nucleated RBC Nucleated RBC % INR (Anticoag Therapy) 1.08 APTT 28.5 Sodium 133 L Potassium 3.7 Chloride 105 Carbon Dioxide 21 L Anion Gap 7 BUN 43 H Creatinine 1.12 H Est GFR ( Amer) 56.2 Est GFR (Non-Af Amer) 46.5 BUN/Creatinine Ratio 38.4 H Glucose 148 H Lactic Acid 0.9 Calcium 8.1 L Phosphorus 4.0 Magnesium 1.6 L Total Bilirubin 0.30 Direct Bilirubin 0.10 Indirect Bilirubin 0.2 L AST 14 ALT 8 Alkaline Phosphatase 56 C-Reactive Protein Total Protein 7.0 Albumin 3.4 Globulin 3.6 Albumin/Globulin Ratio 0.9 L Amylase 95 Lipase 39 Urine Color Urine Appearance Urine pH Ur Specific [place] Urine Protein Urine Ketones Urine Blood Urine Nitrate Urine Bilirubin Urine Urobilinogen Ur Leukocyte Esterase Urine WBC (Auto) Urine RBC (Auto) Ur Squamous Epith Cells Urine Bacteria Urine Glucose 03/21/19 03/21/19 09:05 18:13 WBC 15.2 H RBC 4.21 Hgb 11.5 L Hct 34 L MCV 81 MCH 27 MCHC 34 RDW 15 Plt Count 226 MPV 7.3 L Neut % (Auto) 95.2 Lymph % (Auto) 2.5 Riley % (Auto) 2.2 Eos % (Auto) 0.0 Baso % (Auto) 0.1 Absolute Neuts (auto) 14.5 H Absolute Lymphs (auto) 0.4 L Absolute Monos (auto) 0.3 Absolute Eos (auto) 0.0 Absolute Basos (auto) 0.0 Absolute Nucleated RBC 0.0 Nucleated RBC % 0.0 INR (Anticoag Therapy) APTT Sodium Potassium Chloride Carbon Dioxide Anion Gap BUN Creatinine Est GFR ( Amer) Est GFR (Non-Af Amer) BUN/Creatinine Ratio Glucose Lactic Acid Calcium Phosphorus Magnesium Total Bilirubin Direct Bilirubin Indirect Bilirubin AST ALT Alkaline Phosphatase C-Reactive Protein Total Protein Albumin Globulin Albumin/Globulin Ratio Amylase Lipase Urine Color Yellow Urine Appearance Clear Urine pH 6.0 Ur Specific [place] 1.027 Urine Protein 1+(30 mg/dl) A Urine Ketones Negative Urine Blood 1+ A Urine Nitrate Negative Urine Bilirubin Negative Urine Urobilinogen Negative Ur Leukocyte Esterase 1+ A Urine WBC (Auto) 2+(11-20/hpf) A Urine RBC (Auto) 3+(>10/hpf) A Ur Squamous Epith Cells Urine Bacteria Absent Urine Glucose Negative Studies: None Impression: Satisfactory postop course Plan: 1. Empiric antibiotics 2. NPO for now 3. Maintenance IV fluids Critical Care Time: 40 minutes
[2019-03-21] MEDS: TRAVOPROST BOTH EYES SCH (21:29)
[2019-03-21] MEDS: TIMOLOL BOTH EYES SCH (21:29)
--- NOTE | 2019-03-22 00:08 | OP ---
DATE OF OPERATION: 03/21/19 - ROOM #446 DATE OF : 37 SURGEON: Spencer Garcia MD RELIGIOUS EDUCATION DIRECTOR: OMEGA Roche ANESTHESIOLOGIST: Dr. Garcia. ANESTHESIA: General with local. PRE-OP DIAGNOSIS: Right-sided abdominal pain. POST-OP DIAGNOSES: 1. Right-sided abdominal pain. 2. 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 OPERATIVE PROCEDURE: Exploratory laparotomy with right hemicolectomy with anastomosis. IV FLUIDS: 2300 cc of lactated Ringers. ESTIMATED BLOOD LOSS: 100 cc. URINE OUTPUT: 400 cc. SPECIMENS: Right colon. DRAINS: None. WOUND CLASSIFICATION: IV. COMPLICATIONS: None. FINDINGS: The cecum was transmurally infarcted without evidence of perforation. There appeared to be also chronic inflammatory change with significant omental adhesions to the colon and anterior abdominal wall on the right side of the abdominal wall. In addition, the gallbladder was identified. It showed no evidence of acute inflammation, however, was quite full of what appeared to be stones and/or a thick type of sludge, but was not distended. There was no pericholecystic fluid or inflammation and this was not removed. DESCRIPTION OF PROCEDURE: Written informed consent was obtained, the abdomen was marked with indelible ink and preoperative antibiotics were administered. The patient was taken to the operating room and placed in the supine position. Sequential compression devices and warming blanket were applied. General anesthesia was administered. A Adan catheter had previously been inserted. The abdomen was prepped and draped in usual sterile fashion. A time-out verification was completed. A midline incision centered around the umbilicus was made and then carried down to the midline fascia and the peritoneal cavity was entered under direct vision. The incision was extended both superiorly and inferiorly. Upon entering the abdomen, there was some purulent, turbid fluid, mainly in the right side of the abdomen and up over the liver. This was irrigated. We were able to elevate the omentum up out of the abdomen and small bowel was evaluated and went from the ligament of Treitz down to the cecum and it was unremarkable. Liver was unremarkable. The gallbladder was palpated and visualized. It was whitish in colon, but it was without inflammation or thick wall, but it was packed with what appeared to be stones, one big stone or thick firm sludge. The liver was unremarkable. The stomach was unremarkable. We then turned our attention to the right lower quadrant. At this point, there appeared to be a significant amount chronic inflammatory process from the omentum and the colon to the lateral anterior abdominal wall. We were then able to visualize the cecum and extending up on the ascending colon there was noted to be transmural necrosis with gangrene without evidence of perforation of the cecum and proximal ascending colon. With some difficulty due to some chronic appearing adhesions, I was able to mobilize the cecum off the lateral abdominal wall taking down the peritoneal attachments. This was extended up to the hepatic flexure, was subsequently mobilized. I identified the right ureter and this was protected from injury throughout as well as identifying the duodenum and protecting this from injury throughout. At about the hepatic flexure, the colon appeared to be normal and we mobilized the transverse colon to its proximal third. This was also viable and healthy appearing pink. The terminal ileum as well appeared to be unremarkable. An area well to the right of the middle colic vessels was then identified and the colon here was divided with a LEON-80 stapler. Likewise, the terminal ileum was divided with a LEON stapler 4 to 5 cm proximal to the ileocecal valve. The mesentry of the right colon was then mobilized and was divided with the LigaSure device. The ileocolic vessels had a very weak pulse and these were cut and clamped and oversewn with a 2-0 Vicryl suture. At this point, with these findings and no evidence of inflammation or acute findings of the gallbladder, I made a decision not to proceed with an open cholecystectomy. Also, a decision was then made to proceed with an anastomosis as the ileum and the transverse colon appeared to be pink and viable. There was no further evidence of ischemia and thus a side to side terminal ileum to transverse colostomy was then performed using the LEON-80 stapler and the common rent was closed with the TA-90 blue load. Staple lines were oversewn with 3-0 silk suture. The mesenteric rent was closed with a running 3-0 Vicryl suture. Once again, we then proceeded to irrigate all 4 quadrants of abdomen thoroughly with significant amount of saline. No other abnormalities were noted. The anastomosis was placed back in the right upper quadrant and covered with omentum. All sponge, needle, lap counts were all reported to me as correct. The midline incision was closed with interrupted #1 Vicryl suture. The skin was approximated with a stapling device. Dry sterile dressings were applied. The patient tolerated procedure well and was taken to the recovery room in stable condition. [id number]/[facility] #: [id number] ALEX
[2019-03-22 04:44] LABS: ABS Lymphocytes 0.6 10^3/ul (1.0-4.8); ABS Monocytes 0.4 10^3/ul (0-0.8); ABS Neutrophils 10.1 10^3/ul (1.5-7.7); Hematocrit 28 % (35-47); Hemoglobin 9.5 g/dL (12.0-16.0); Lymphocyte % 5.3 %; Mean Corpuscular HGB Conc 34 g/dL (31-36); Mean Corpuscular Hemoglobin 28 pg (27-31); Mean Corpuscular Volume 82 fL (80-97); Mean Platelet Volume 7.2 fL (7.4-10.4); Platelet Count 176 10^3/uL (150-450); Red Blood Count 3.43 10^6 /uL (3.70-4.87); Red Cell Distribution Width 15 % (10-15); White Blood Count 11.1 10^3/uL (3.5-10.8)
[2019-03-22] MEDS: POTASSIUM CHLORIDE IV SCH ×3 (04:52→21:34)
[2019-03-22] MEDS: NS 0.9% IV SCH ×3 (04:52→21:34)
[2019-03-22] MEDS: ZOSYN 3.375 GM Q8H per EXTENDED INFUSION IVPB SCH ×6 (04:53→21:42)
[2019-03-22 05:00] LABS: BUN/Creatinine Ratio 34.8 (8-20); Calcium 7.2 mg/dL (8.6-10.3); EGFR African American 56.2 (>60); EGFR Non-African American 46.5 (>60); Magnesium 1.7 mg/dL (1.9-2.7); Potassium 3.5 mmol/L (3.5-5.0)
[2019-03-22] MEDS: Heparin VIAL(*) 5000 UNITS/ML VIAL (FIVE THOUSAND) SUBCUT SCH ×3 (05:02→21:45)
[2019-03-22] MEDS: Famotidine IV* 10 MG/ML 2 ML (20 mg) IV SCH ×2 (05:02→18:42)
[2019-03-22] MEDS: Morphine INJ* 2 MG/ML 1 ML SYRINGE (TWO MG - NEW SYRINGE VERSION) IV PRN ×2 (05:17→10:32)
[2019-03-22] MEDS ORDERED: [UNRECOGNIZED DRUG - OTHER] PO SCH (09:00)
--- NOTE | 2019-03-22 10:44 | PN ---
Progress Note - Progress Note Date of Service: 03/22/19 SOAP: Subjective: Somewhat sleepy this morning but appears comfortable Pain controlled Objective: Temp Pulse Resp BP Pulse Ox 98.4 F 89 29 161/84 99 03/22/19 03:57 03/22/19 10:00 03/22/19 10:32 03/22/19 10:00 03/22/19 10:00 Intake & Output 03/20/19 03/21/19 03/22/19 03/23/19 06:59 06:59 06:59 06:59 Intake Total 1050 2912 Output Total 1500 125 Balance 1050 1412 -125 Weight 138 lb 156 lb 4.924 oz Intake: IV Fluids 1050 2688 LR 1300 NS (0.9%) 188 NS w/ 10K 1000 IVPB 224 ABX - ZOSYN 224 Output: NG Tube Drainage Amount 200 Urine 400 Adan 800 125 Estimated Blood Loss 100 Other: Estimated Blood Loss per OR notes.Not observed by advertising copy writer; hospital practice for PROCESSING OPERATOR to relay Comment PEX: Comfortable Lungs are clear, decreased breath sounds at the bases Cor is RRR Abd is soft and slightly distended. Dressing in place. No bowel sounds present Ext without edema Laboratory Results - last 24 hr 03/21/19 03/22/19 03/22/19 18:13 04:37 04:37 WBC 11.1 H RBC 3.43 L Hgb 9.5 L Hct 28 L MCV 82 MCH 28 MCHC 34 RDW 15 Plt Count 176 MPV 7.2 L Neut % (Auto) 90.7 Lymph % (Auto) 5.3 [place] % (Auto) 3.8 Eos % (Auto) 0.0 Baso % (Auto) 0.2 Absolute Neuts (auto) 10.1 H Absolute Lymphs (auto) 0.6 L Absolute Monos (auto) 0.4 Absolute Eos (auto) 0.0 Absolute Basos (auto) 0.0 Absolute Nucleated RBC 0.0 Nucleated RBC % 0.0 Sodium 136 Potassium 3.5 Chloride 113 H Carbon Dioxide 18 L Anion Gap 5 BUN 39 H Creatinine 1.12 H Est GFR ( Amer) 56.2 Est GFR (Non-Af Amer) 46.5 BUN/Creatinine Ratio 34.8 H Glucose 113 H Calcium 7.2 L Magnesium 1.7 L Urine Color Yellow Urine Appearance Clear Urine pH 6.0 Ur Specific [place] 1.027 Urine Protein 1+(30 mg/dl) A Urine Ketones Negative Urine Blood 1+ A Urine Nitrate Negative Urine Bilirubin Negative Urine Urobilinogen Negative Ur Leukocyte Esterase 1+ A Urine WBC (Auto) 2+(11-20/hpf) A Urine RBC (Auto) 3+(>10/hpf) A Urine Bacteria Absent Urine Glucose Negative Assessment: POD# 1 s/p exlap and right hemicolectomy for ischemia/necrosis of cecum and right colon Plan: IVF D/C NGT, ice chips IV abx for 48 hours H2 austen Subq heparin Transfer to [facility] today Discussed with Dr. Coyle Also discussed findings at surgery with both sons last night after operation and answered their questions.
[2019-03-22] MEDS ORDERED: Iodixanol* (CONTRAST) 320 MG/ML 100 ML SDV IV ONE (12:14)
[2019-03-22] MEDS: Aspirin 81 mg CHEW TAB* 81 MG TAB.CHEW PO SCH (13:40)
--- NOTE | 2019-03-22 14:34 | CONS ---
CC: Dr. Spencer Garcia * CONSULTATION REPORT: DATE OF CONSULT: 03/22/19 LOCATION: Currently in the ICU room 7, bed 1. PRIMARY CARE PROVIDER: She is traveling from [place]. No primary care provider here. REASON FOR CONSULT: Right lower extremity weakness. HISTORY OF PRESENT ILLNESS: Ms. Patterson is a very nice right-handed 84- year-old female who has a history of hypertension, hyperlipidemia, history of TIAs in the past and some chronic balance issues, who has been in her usual state of health, she is in the country visiting relatives and was here in the [facility] when yesterday she went to eat at around 5 p.m.; the son states that that is the last time he remembers seeing her walk normally. She occasionally needs to hold onto him for balance, but in general was able to walk on her own. She went into the restaurant, she started having abdominal pain, nausea, vomiting and was subsequently brought to the ER. In the ER, she was suspected of having ischemic colitis. She was initially seen at around midnight, but the CT of the abdomen showed excessive thickening of the cecum and ascending colon with some surrounding inflammatory changes. She apparently had a similar episode about a year and a half ago and was advised at that time for elective cholecystectomy. She was subsequently seen and evaluated and underwent surgery by Dr. Spencer Garcia. Dr. Boss was also consulted. Based on her findings, she was taken to surgery for laparotomy. She underwent exploratory laparotomy with a right colectomy and she did well during surgery. I did speak to Dr. Garcia. There was no unusual positioning for the surgery. She tolerated the surgery very well. Estimated blood loss was felt to be 100 mL. She received some fluids, but it was a relatively uneventful surgery. She was brought to the ICU and was very somnolent, but this morning as she was waking up, the nurses went to start to move her and both the patient and the nurses noted that she was not moving her right lower extremity and seemed to be very weak. She also apparently had some weakness in her right upper extremity with some drift, but it seemed to be stronger. There was no reported facial droop. There was no reported dysarthria , although it should be said that she only speaks [place] and her son had to translate for her, but he reported no changes in her voice. She had no vision symptoms. She had no left-sided symptoms. She does report a fall about a year or a year and a half ago, but no recent trauma to her head. She had no headache and no swallowing problems that she is aware of, although she is currently n.p.o. She has a history of TIAs, but no prior stroke like this in the past. Based on these findings, I was called by Dr. Coyle. I recommended that she be sent for a stat CT of the head as well as a CT angiogram of the head and neck. Because she underwent surgery and she was outside of the tPA window, she was not deemed a good candidate for tPA, but there was still the possibility that she could have a large vessel occlusion, so CT angiogram was done. I talked to Dr. Madera and reviewed the films. She had some atherosclerotic disease, but no evidence of large vessel occlusion or critical carotid stenosis. There was evidence of some white matter disease, but does not appear to be any evidence of acute changes to suggest an evolving infarct. There was no hemorrhage noted. When I evaluated her in the ICU, she had an NIH Stroke Scale of 3 with some mild drift in the right upper extremity and a significant drift in the right lower extremity. She denied any symptoms at the time that I evaluated. Her son was at the bedside. She is very alert, aware, and oriented x3. She is very clear, normally very active and understands what is going on. Telemetry has shown no evidence of atrial fibrillation. She denies any history of palpitations or chest pain. PAST MEDICAL HISTORY: As noted above. PAST SURGICAL HISTORY: She denies any surgical history prior to her surgery overnight. MEDICATIONS: As an outpatient include: 1. Travoprost/timolol eye drops. 2. Sandoz Cardio, which is a drug that is available in [place]. I reviewed this medication and looked it up. It apparently is used for both pain but also post-stroke and heart attack. It does have some aspirin in it. She takes 100 mg a day. 3. She is also on omeprazole. 4. Nifedipine 60 mg. 5. Zofran as needed. ALLERGIES: She is allergic to IBUPROFEN. FAMILY HISTORY: Noncontributory. No history of stroke or heart attacks. SOCIAL HISTORY: She lives in [place]. She is here visiting her son. She is traveling with her son, who lives in [place] as well. There is no history of tobacco use. She has history of very occasional rare social alcohol drinking. She is retired. PHYSICAL EXAM: Vital Signs: She has been 98.8, afebrile; heart rate 96 to 98; respirations 15 to 20; O2 sat is 91% to 96%; blood pressure 163/84 to 143/74. In general, she is a well-nourished, well-developed female, lying in the hospital bed. She is very pleasant. She is awake, alert. Her speech is fluent , but she only speaks [place]; her son translated. She is normocephalic, atraumatic. Sclerae are anicteric with cataracts noted. Mucous membranes are slightly dry. Oropharynx is clear. Nares are patent. Neck is supple. No thyromegaly. No carotid bruits. No meningismus. Chest: Clear to auscultation bilaterally. Cardiovascular is regular rate and rhythm without murmurs. Abdomen is somewhat tender status post surgery, bandaged. Extremities : There is 1+ edema in the feet bilaterally. Skin is warm and dry otherwise. On neurologic exam, she is awake, alert, and oriented x3. Her speech is fluent. There is no dysarthria. Her repetition is intact. Recall of recent and remote events is intact. Vocabulary is intact. Her mood is dysthymic. Affect, mood congruent. Cranial Nerves: Pupils are equally round and reactive to light and accommodation. Extraocular muscles are intact. There is no nystagmus appreciated. No diplopia. No ptosis noted. Her face is symmetric. Her facial sensation is intact. Her hearing is intact bilaterally. Her palate raises symmetrically. Tongue is midline. Sternocleidomastoid muscle and trapezius are 5/5. Motor Exam: She spontaneously moves all extremities. She has 5/5 strength in the upper extremities. There is very subtle drift in the right upper extremity. In the right lower extremity, she can lift her leg off the bed, but drops it after 3 or 4 seconds. Her left leg is 5/5, no drift. Tone is down in the right lower extremity. Otherwise, tone is normal. DTRs are 1+ at the biceps, triceps, and brachioradialis; 1+ at the patella; absent at the ankles; equivocal Babinski's. Sensation is intact to light touch and pinprick. There is no extinguishing double simultaneous light touch. There is no evidence of any neglect. Ixqtto-es-[id number] and rapid alternating movements are intact. Her hdhc-bj-ubea was intact on the left, surprisingly intact on the right except slow. There is no evidence of ataxia or dysmetria. Gait could not be tested at this time as she is postsurgical. DIAGNOSTIC STUDIES/LAB DATA: Lab work includes a white count of 11.1, hemoglobin 9.5, hematocrit 28. INR 1.08, PTT of 28.5. Chemistry: Chloride of 113, carbon dioxide 18, BUN 39, creatinine of 1.12, BUN/creatinine ratio of 34.8 , glucose of 113, calcium of 7.2, magnesium of 1.7. Amylase and lipase are normal. C-reactive protein of 1.28. LFTs are normal. Urine showed 1+protein, 1 + blood, 1+ leukocyte esterase, 2+ white blood cells, 3+ rbc's, absent bacteria. Imaging as noted above. ASSESSMENT AND PLAN: Mr. Patterson is an 84-year-old right-handed female who has a history of hyperlipidemia, hypertension, transient ischemic attacks in the past, on a medication from [place] that apparently has some antiplatelet properties, also on blood pressure medication, who was in the usual state of health when yesterday she developed acute onset of nausea, vomiting, abdominal pain. Her last normal was at around 5 p.m. yesterday per the son. She underwent laparotomy with right colectomy yesterday for ischemic colitis and this morning when she was waking up she noticed right lower extremity greater than right upper extremity weakness. Her right upper extremity weakness seems to be improving and almost resolved with some mild drift. She had an NIH Stroke Scale of 3 on my exam. CTs of the head show no obvious acute changes. I did review the films as well as talk to the radiologist. She does have atherosclerotic changes, but there is no evidence of hemodynamically significant carotid stenosis or large vessel intracranial thrombus. She is outside of the tPA window as her last normal was yesterday at 5 p.m. I suspect that she has suffered a subcortical stroke possibly in the left internal capsule. My suspicion for large vessel stroke is low given her presentation. At this point, I did speak with Dr. Garcia, who is okay starting a baby aspirin. I spoke of the risks and benefits to the son and I think that the benefits greatly outweigh the risks in this case, so we will start a baby aspirin. I am not going to start her on dual antiplatelet at this point given her recent surgery. I would strive for moderate blood pressure control and allow for some permissive hypertension. We will check lipids and add statin accordingly. She is a nondiabetic and nonsmoker. I defer management of her surgical issues and medical issues to surgeon and the agile qa tester. Once she is stable from a surgical standpoint, I would get Physical Therapy involved and she may be a good candidate for inpatient rehab as well. I am going to order an MRI of the brain as well as an echocardiogram to rule out any cardioembolic source and to confirm a stroke. I am also going to continue to monitor her on telemetry to look for any evidence of atrial fibrillation. We will continue to follow her closely and make further recommendations as necessary. Thank you for the opportunity to participate in the care of this very interesting patient. [id number]/[facility] #: [id number] ALEX
[2019-03-22 14:56] LABS: HDL Cholesterol 37.8 mg/dL
--- NOTE | 2019-03-22 15:45 | PN ---
Date of Service: 03/22/19 Critical Care Services: Patient had an uneventful evening but complained right-sided wekness this AM - physical exam confirms weakness in right leg and arm, and the working dx is acute stroke. CT of head is unrevealing. Has been seen by Dr. Ly of the neurology service. Vital Signs: Temp Pulse Resp BP SpO2 FiO2 98.8 F 98 26 155/81 92 Physical Exam: Gen:Alert, oriented HEENT:Pupils and corneals intact. Gag intact. Lungs: Clear Cardiac: No murmurs Abdomen: Not distended. Midline surgical dressing in place. Extremities: No cyanosis or edema. Neuro: Strength 1/4 in right leg and 3/4 in right arm. Fluid Balance (Past 24 Hours): 03/21/19 03/22/19 06:59 06:59 Intake Total 1050 2912 Output Total 1500 Balance 1050 1412 Weight 138 lb 156 lb Intake: IV Fluids 1050 2688 LR 1300 NS (0.9%) 188 NS w/ 10K 1000 IVPB 224 ABX - ZOSYN 224 Output: NG Tube Drainage Amount 200 Urine 400 Adan 800 Estimated Blood Loss 100 Other: Estimated Blood Loss per OR notes. Not observed by health underwriter; hospital practice for [employer]PER[employer] to relay Comment Labs: 03/21/19 03/22/19 03/22/19 18:13 04:37 04:37 WBC 11.1 H RBC 3.43 L Hgb 9.5 L Hct 28 L MCV 82 MCH 28 MCHC 34 RDW 15 Plt Count 176 MPV 7.2 L Neut % (Auto) 90.7 Lymph % (Auto) 5.3 [place] % (Auto) 3.8 Eos % (Auto) 0.0 Baso % (Auto) 0.2 Absolute Neuts (auto) 10.1 H Absolute Lymphs (auto) 0.6 L Absolute Monos (auto) 0.4 Absolute Eos (auto) 0.0 Absolute Basos (auto) 0.0 Absolute Nucleated RBC 0.0 Nucleated RBC % 0.0 Sodium 136 Potassium 3.5 Chloride 113 H Carbon Dioxide 18 L Anion Gap 5 BUN 39 H Creatinine 1.12 H Est GFR ( Amer) 56.2 Est GFR (Non-Af Amer) 46.5 BUN/Creatinine Ratio 34.8 H Glucose 113 H Calcium 7.2 L Magnesium 1.7 L Triglycerides 46 Cholesterol 69 LDL Cholesterol 22 HDL Cholesterol 37.8 Urine Color Yellow Urine Appearance Clear Urine pH 6.0 Ur Specific [place] 1.027 Urine Protein 1+(30 mg/dl) A Urine Ketones Negative Urine Blood 1+ A Urine Nitrate Negative Urine Bilirubin Negative Urine Urobilinogen Negative Ur Leukocyte Esterase 1+ A Urine WBC (Auto) 2+(11-20/hpf) A Urine RBC (Auto) 3+(>10/hpf) A Urine Bacteria Absent Urine Glucose Negative Studies: CTA of head and neck Nutrition: Has been NPO Impression: Apparent acute ischemic stroke in the post-op period following a partial right colectomy. Patient is doing well at this time. Plan: 1. Start ASA for antiplatelet effects 2. Keep SBP < 185 mm Hg 3. Physical therapy 4. Advance oral diet Patient's sons present today and are aware of the new dx and management plan. Critical Care Time: 40 minutes
[2019-03-22] MEDS: TIMOLOL BOTH EYES SCH (21:49)
[2019-03-22] MEDS: TRAVOPROST BOTH EYES SCH (21:49)
[2019-03-23] MEDS ORDERED: Digoxin TAB* 0.25 MG ONE (02:14)
[2019-03-23] MEDS ORDERED: Digoxin IV* 0.5 MG/2 ML AMP (0.25 MG/ML) ONE (02:17)
[2019-03-23] MEDS ORDERED: Digoxin IV* 0.5 MG/2 ML AMP (0.25 MG/ML) IV SLOW PU ONE (02:30)
[2019-03-23] MEDS: ZOSYN 3.375 GM Q8H per EXTENDED INFUSION IVPB SCH ×6 (05:37→21:24)
[2019-03-23] MEDS: NS 0.9% IV SCH (05:38)
[2019-03-23] MEDS: POTASSIUM CHLORIDE IV SCH (05:38)
[2019-03-23] MEDS: Famotidine IV* 10 MG/ML 2 ML (20 mg) IV SCH (05:41)
[2019-03-23] MEDS: Heparin VIAL(*) 5000 UNITS/ML VIAL (FIVE THOUSAND) SUBCUT SCH ×3 (05:41→21:24)
[2019-03-23 05:45] LABS: Hematocrit 25 % (35-47); Hemoglobin 8.5 g/dL (12.0-16.0); Mean Corpuscular HGB Conc 34 g/dL (31-36); Mean Corpuscular Hemoglobin 28 pg (27-31); Mean Corpuscular Volume 83 fL (80-97); Mean Platelet Volume 7.7 fL (7.4-10.4); Platelet Count 167 10^3/uL (150-450); Red Cell Distribution Width 15 % (10-15); White Blood Count 10.5 10^3/uL (3.5-10.8)
[2019-03-23 06:03] LABS: CO2 Carbon Dioxide 17 mmol/L (22-32); Sodium 140 mmol/L (135-145)
[2019-03-23 06:09] LABS: BUN/Creatinine Ratio 32.6 (8-20); Blood Urea Nitrogen 30 mg/dL (6-24); EGFR African American 70.5 (>60); EGFR Non-African American 58.3 (>60); Glucose 70 mg/dL (70-100)
[2019-03-23 06:16] LABS: Anion Gap 5 mmol/L (2-11); Chloride 118 mmol/L (101-111)
--- NOTE | 2019-03-23 10:06 | ECHO ---
*[facility]* [place] [address] Fax #: [phone] Transthoracic Echocardiogram Patient: Tamica Patterson : 1935 Study Date: 03/23/2019 Age: 84 Gender: F HR: 75 bpm Height: 65 in /165.1 cm BSA: 1.78 m^2 Weight: 155.7 lb /70.8 kg BMI: 26 kg/m^2 *Control Supervisor: * Orquidea Jackson [facility] *Referring Physician: * Pradeep Ly *Reading Physician: * Cathie Crooks MD Indications: CVA. History: Transient ischemic attack. Risk factors: Hypertension. Dyslipidemia. Conclusions Summary: - Left ventricle: Systolic function is normal. The estimated ejection fraction is 60-65%. Doppler parameters are consistent with abnormal left ventricular relaxation (grade 1 diastolic dysfunction). - Right ventricle: Systolic function is hyperdynamic. - Atrial septum: Positive bubble study c/w patent foraman ovale. - Mitral valve: There is trace to mild regurgitation. - Aortic valve: There is mild to moderate regurgitation. The regurgitation pressure half-time is 279 mitral stenosis, small jet area on short axis view, unable to evaluate reversal of flow in the descending aorta due to image quality. - Tricuspid valve: There is moderate regurgitation directed toward the free wall. - Pulmonary arteries: Systolic pressure is mildly increased. The peak pressure during systole by Doppler is 37.0 mm Hg. - No prior echocardiogram to compare. Study data: Transthoracic echocardiogram. Procedure: Transthoracic echocardiography was performed. Image quality was good. A bubble study was performed. Complete 2D, spectral Doppler, and color flow Doppler. Location: ICU Patient status: Inpatient. Patient room number: 7. Rhythm: Normal sinus rhythm with PVC's. Findings Left ventricle: The cavity size is normal. Wall thickness is normal. Systolic function is normal. The estimated ejection fraction is 60-65%. Wall motion is normal; there are no regional wall motion abnormalities. Doppler parameters are consistent with abnormal left ventricular relaxation (grade 1 diastolic dysfunction). Right ventricle: The cavity size is normal. Systolic function is hyperdynamic. Left atrium: The atrium is mildly dilated. Right atrium: The atrium is normal in size. Atrial septum: The atrial septum appears aneurysmal. A PFO is demonstrated by agitated saline contrast. Positive bubble study. Mitral valve: The leaflets are normal thickness. There is no evidence of stenosis. There is trace to mild regurgitation. Aortic valve: The valve is trileaflet. The leaflets are mildly thickened. There is no evidence of stenosis. There is mild to moderate regurgitation. Tricuspid valve: The leaflets are normal thickness. There is no evidence of stenosis. There is moderate regurgitation directed toward the free wall. Pulmonic valve: The leaflets are normal thickness. There is no evidence of stenosis. There is no significant regurgitation. Aorta: The aortic root appears normal. The aortic arch appears normal. Pericardium: There is no significant pericardial effusion. Pulmonary arteries: Not well visualized. Systolic pressure is mildly increased. Systemic veins: Inferior vena cava: The vessel is dilated. There is (< 50%) respiratory change in the IVC dimension. Measurements Left ventricle Value Ref Aortic valve continued Value Ref GERRY, LAX 4.5 cm 3.8 - 5.2 Peak v, S 1.58 m/sec ----- ESD, LAX 3.1 cm 2.2 - 3.5 VTI, S 35.9 cm ----- FS, LAX 31 % 27 - 45 Mean grad, S 5.0 mm Hg ----- PW, ED, LAX 0.9 cm 0.6 - 0.9 Peak grad, S 10.0 mm Hg ----- EF 58 % 54 - 74 AR peak v 3.63 m/sec ----- E', lat patti, TDI 10.9 cm/sec >=10.0 AR PHT 279 ms - ---- E/e', lat patti, 8 AR peak grad 53 mm Hg ---- - TDI E', med patti, TDI (L) 5.8 cm/sec >=7.0 Mitral valve Value R ef E/e', med patti, 15 Peak E 0.86 m/sec ---- - TDI Peak A 1.03 m/sec ----- E', avg, TDI 8.4 cm/sec Decel time 106 ms ---- - E/e', avg, TDI 10 <=14 Peak grad, D 3.0 mm Hg - ---- Peak E/A ratio 0.8 ----- LVOT Value Ref Peak raj, S 1.13 m/sec Pulmonic valve Value Ref Peak grad, S 5 mm Hg Peak v, S 0.65 m/sec ----- Mean grad, S 3 mm Hg Peak grad, S 2.0 mm Hg ----- Ventricular septum Value Ref Tricuspid valve Value Ref IVS, ED (H) 1.0 cm 0.6 - 0.9 TR peak v (H) 3 m/sec <=2.8 Peak RV-RA grad, S 36 mm Hg ----- Right ventricle Value Ref GERRY, LAX 2.5 cm Aortic root Value Ref GERRY minor ax, A4C (H) 4.2 cm 1.9 - 3.5 Root diam 3.1 cm <4.0 mid Pressure, S 39 mm Hg Ascending aorta Value Ref AAo AP diam, S 3.3 cm ----- Left atrium Value Ref AP dim, ES (H) 3.90 cm 2.70 - Aortic arch Value Ref 3.80 Arch diam 2.6 cm ----- ML dim, A4C 4.6 cm SI dim, A4C 5.8 cm Pulmonary artery Value Ref Vol/bsa, ES, A/L (H) 38 ml/m^2 16 - 34 Pressure, S 37.0 mm Hg ----- Right atrium Value Ref Inferior vena cava Value Ref SI dim, ES 5.3 cm 3.4 - 5.3 Diam 2.3 cm ----- ML dim, ES, A4C 3.9 cm 2.6 - 4.4 Estimated RAP 3 mm Hg Aortic valve Value Ref Patti diam, ED 2.0 cm Legend: (L) and (H) catracho values outside specified reference range. Prepared and electronically signed by Cathie Crooks MD 03/23/2019 10:05
[2019-03-23] MEDS: Aspirin 81 mg CHEW TAB* 81 MG TAB.CHEW PO SCH (10:47)
--- NOTE | 2019-03-23 10:47 | PN ---
Subjective Date of Service: 03/23/19 Length of Stay: 2 Days Interval History: No new issues overnight. She remains weak in the RLE but has regained more strength in the RUE. She denies any new symptoms, no dysphagia or dysarthria, no headaches, no new focal numbness, tingling or weakness. No vision changes. No chest pain or shortness of air. She is anxious to return to [place] for further rehab. Sons are at the bedside. Echo/MRI Pending Review of Systems: * Objective Active Medications: Acetaminophen (Tylenol Tab*) 650 mg PO Q4H PRN PRN Reason: MILD PAIN or TEMP > 100.4 Acetaminophen (Tylenol Supp*) 650 mg [place] Q4H PRN PRN Reason: MILD PAIN or TEMP > 100.4 Aspirin (Aspirin 81 Mg Chew Tab*) 81 mg PO DAILY [facility] Last Admin: 03/22/19 13:40 Dose: 81 mg Famotidine (Pepcid Iv*) 20 mg IV Q12H [facility] Last Admin: 03/23/19 05:41 Dose: 20 mg Heparin Sodium (Porcine) (Heparin Vial(*)) 5,000 units SUBCUT Q8H [facility] Last Admin: 03/23/19 05:41 Dose: 5,000 units Piperacillin Sod/Tazobactam (Sod 3.375 gm/ Sodium Chloride) 100 mls @ 25 mls/ hr IVPB Q8H [facility] Last Admin: 03/23/19 05:37 Dose: 25 mls/hr Potassium Chloride 10 meq/ (Sodium Chloride) 1,005 mls @ 125 mls/hr IV Q8H [facility] Last Admin: 03/23/19 05:38 Dose: 125 mls/hr Morphine Sulfate (Morphine Inj (Syringe))*) 2 mg IV Q4H PRN PRN Reason: PAIN - MODERATE Last Admin: 03/22/19 10:32 Dose: 2 mg Morphine Sulfate (Morphine Inj (Syringe)*) 4 mg IV Q2H PRN PRN Reason: PAIN - SEVERE Pto:(Travoprost/ (Timolol Eye Drops)) 1 drop BOTH EYES BEDTIME [facility] Last Admin: 03/22/19 21:49 Dose: 1 drop Ondansetron HCl (Zofran Inj*) 4 mg IV Q4H PRN PRN Reason: NAUSEA/VOMITING Last Admin: 03/21/19 09:24 Dose: 4 mg Pharmacy Consult (Zosyn Per Pharmacy*) 1 note FOLLOW UP .ZOSYN PER PHARMACY [facility] Vital Signs 03/22/19 03/22/19 03/22/19 11:00 11:27 11:40 Temperature 98.8 F Pulse Rate 90 89 Respiratory 21 Rate Blood Pressure 146/75 (mmHg) O2 Sat by Pulse 95 97 Oximetry 03/22/19 03/22/19 03/22/19 12:00 12:19 12:21 Temperature Pulse Rate 98 98 Respiratory 18 18 20 Rate Blood Pressure 163/84 (mmHg) O2 Sat by Pulse 96 97 Oximetry 03/22/19 03/22/19 03/22/19 13:00 14:00 15:00 Temperature Pulse Rate 96 98 93 Respiratory 15 26 12 Rate Blood Pressure 143/74 155/81 149/66 (mmHg) O2 Sat by Pulse 91 92 98 Oximetry 03/22/19 03/22/19 03/22/19 15:49 16:00 17:00 Temperature 98.7 F Pulse Rate 84 89 Respiratory 18 24 Rate Blood Pressure 131/52 141/61 (mmHg) O2 Sat by Pulse 97 97 Oximetry 03/22/19 03/22/19 03/22/19 18:00 19:00 19:22 Temperature 98.8 F Pulse Rate 93 95 Respiratory 13 25 Rate Blood Pressure 141/68 165/79 (mmHg) O2 Sat by Pulse 92 95 Oximetry 03/22/19 03/22/19 03/22/19 20:00 21:00 21:07 Temperature Pulse Rate 99 94 Respiratory 20 15 Rate Blood Pressure 146/75 148/69 (mmHg) O2 Sat by Pulse 94 94 95 Oximetry 03/22/19 03/22/19 03/22/19 22:00 23:00 23:12 Temperature 99.0 F Pulse Rate 92 91 Respiratory 24 17 Rate Blood Pressure 147/72 126/66 (mmHg) O2 Sat by Pulse 93 95 Oximetry 03/22/19 03/23/19 03/23/19 23:56 00:00 01:00 Temperature Pulse Rate 137 98 108 Respiratory 19 21 18 Rate Blood Pressure 109/56 134/54 87/56 (mmHg) O2 Sat by Pulse 91 93 93 Oximetry 03/23/19 03/23/19 03/23/19 01:07 02:00 02:06 Temperature Pulse Rate 96 106 98 Respiratory 15 16 24 Rate Blood Pressure 112/62 105/68 122/72 (mmHg) O2 Sat by Pulse 93 92 91 Oximetry 03/23/19 03/23/19 03/23/19 02:44 02:45 02:47 Temperature Pulse Rate 125 125 Respiratory 18 Rate Blood Pressure (mmHg) O2 Sat by Pulse Oximetry 03/23/19 03/23/19 03/23/19 03:00 03:31 04:00 Temperature 98.6 F Pulse Rate 88 86 Respiratory 19 15 Rate Blood Pressure 143/70 139/63 (mmHg) O2 Sat by Pulse 93 96 Oximetry 03/23/19 03/23/19 03/23/19 05:00 06:00 07:00 Temperature Pulse Rate 89 87 81 Respiratory 16 18 17 Rate Blood Pressure 140/63 146/77 147/69 (mmHg) O2 Sat by Pulse 94 93 96 Oximetry 03/23/19 03/23/19 03/23/19 08:00 09:00 10:00 Temperature 98.2 F Pulse Rate 79 77 78 Respiratory 15 20 22 Rate Blood Pressure 142/69 162/68 146/67 (mmHg) O2 Sat by Pulse 93 95 97 Oximetry Intake and Output Last 24 Hours 03/21/19 03/22/19 03/23/19 03/24/19 06:59 06:59 06:59 06:59 Intake Total 1050 2912 2956 Output Total 1500 2855 330 Balance 1050 1412 101 -330 Weight 138 lb 156 lb 4.924 oz 153 lb 10.595 oz Intake: IV Fluids 1050 2688 2956 LR 1300 NS (0.9%) 188 677 NS w/ 10K 1000 2279 IVPB 224 ABX - ZOSYN 224 Output: NG Tube Drainage Amount 200 50 Urine 400 Adan 800 2805 330 Estimated Blood Loss 100 Other: Estimated Blood Loss per OR notes.Not observed by literary writer; hospital practice for DISPLAYER MERCHANDISE to relay Comment Oxygen Devices in Use Now: Nasal Cannula Neurology Exam: General: Well nourished, well developed, and in no acute distress HEENT: Normocephalic/atraumatic, sclera anicteric, mucous membranes moist Neck: Supple Chest: Clear to auscultation bilaterally Cardiovascular: Regular rate and rhythm without murmurs, rubs, gallops Abdomen: Soft, non-tender/non-distended Extremities: No clubbing, cyanosis, or edema Neurological Findings: Awake, alert, and oriented to person, place, and time. Speaks only Lao. Sons are translating Speech: fluent without dysarthria Cranial Nerve: PERRL, EOM intact, VFF, no nystagmus, face symmetric bilaterally , facial sensation intact, hearing intact to finger rub bilaterally, palate elevates symmetrically, tongue midline Motor: Moving all extremities to command. Left side 5/5. RUE: 5/5 with very subtle drift after 6-7 seconds. RLE: Able to hold antigravity for about 4-5 seconds. Distally, 5/5 Sensation: Intact to LT/PP, no neglect Finger to nose, rapid alternating movements intact without tremor Result Diagrams: 03/23/19 05:33 03/23/19 05:33 Microbiology and Other Data: Microbiology 03/21/19 09:15 Aerobic Blood Culture - Preliminary Blood Venous No Growth Day 2 Anaerobic Blood Culture - Preliminary No Growth Day 2 03/21/19 09:24 Aerobic Blood Culture - Preliminary Blood Venous No Growth Day 2 Anaerobic Blood Culture - Preliminary No Growth Day 2 03/21/19 01:43 Urine Culture - Final Urine Escherichia Coli 03/21/19 12:05 Nasal Screen MRSA (PCR) - Final Nasal Mrsa Not Detected Assessment/Plan Mr. Patterson is an 84-year-old right-handed female who has a history of hyperlipidemia, hypertension, transient ischemic attacks in the past, on a medication from [place] that apparently has some antiplatelet properties, also on blood pressure medication, who was in the usual state of health when 2 days ago she developed acute onset of nausea, vomiting, abdominal pain. Her last normal was at around 5 p.m. yesterday per the son. She underwent laparotomy with right colectomy yesterday for ischemic colitis and this morning when she was waking up she noticed right lower extremity greater than right upper extremity weakness. CT/CTA of the head show no obvious acute changes. I did review the films as well as talk to the radiologist. She does have atherosclerotic changes, but there is no evidence of hemodynamically significant carotid stenosis or large vessel intracranial thrombus. She is outside of the tPA window as her last normal was yesterday at 5 p.m. I suspect that she has suffered a subcortical stroke possibly in the left internal capsule. My suspicion for large vessel stroke is low given her presentation. Dr. Garcia was ok with starting ASA which was done yesterday. --Continue ASA: No DAPT at this point given recent surgery. No evidence of A.fib and no strong evidence for embolic stroke although with an episode of ischemic colitis and now stroke, embolic source should be considered. Follow up echo. At this point, there is not enough evidence to justify the risks of starting full strength anti-coagulation. Would recommend continued telemetry to look for A.fib, consider outpatient 30 day monitory. --Permissive HTN: Can start to slowly normalize over the next 1-2 days with meds as necessary --LDL 22, hold on statin at this point --Non-diabetic, non-smoker --Will need intensive rehab for her RLE>RUE weakness. This is something that can be started KU[place] here but she would like to return to [place] for more intense therapy --Updated plan with Dr. Coyle and Dr. Garcia.
--- NOTE | 2019-03-23 10:55 | PN ---
Progress Note - Progress Note Date of Service: 03/23/19 SOAP: Subjective: Events of last night noted-brief SVT/afib but now in NSR Doing well Pain controlled and no N/V Awake and alert Sons at bedside Objective: Temp Pulse Resp BP Pulse Ox 98.2 F 78 22 146/67 97 03/23/19 08:00 03/23/19 10:00 03/23/19 10:00 03/23/19 10:00 03/23/19 10:00 Intake & Output 03/21/19 03/22/19 03/23/19 03/24/19 06:59 06:59 06:59 06:59 Intake Total 1050 2912 2956 Output Total 1500 2855 330 Balance 1050 1412 101 -330 Weight 138 lb 156 lb 4.924 oz 153 lb 10.595 oz Intake: IV Fluids 1050 2688 2956 LR 1300 NS (0.9%) 188 677 NS w/ 10K 1000 2279 IVPB 224 ABX - ZOSYN 224 Output: NG Tube Drainage Amount 200 50 Urine 400 Pedraza 800 2805 330 Estimated Blood Loss 100 Other: Estimated Blood Loss per OR notes.Not observed by television writer; hospital practice for SUGAR GRINDER to relay Comment PEX: Comfortable Lungs are clear Abd is soft and slightly distended. Bowel sounds are present, decreased but not high pitched or tinkling. Incision is CDI-dressing changed Ext without edema Laboratory Results - last 24 hr 03/22/19 03/23/19 03/23/19 04:37 05:33 05:33 WBC 10.5 RBC 3.00 L Hgb 8.5 L Hct 25 L MCV 83 MCH 28 MCHC 34 RDW 15 Plt Count 167 MPV 7.7 Sodium 136 140 Potassium 3.5 TNP Chloride 113 H 118 H Carbon Dioxide 18 L 17 L Anion Gap 5 5 BUN 39 H 30 H Creatinine 1.12 H 0.92 Est GFR ( Amer) 56.2 70.5 Est GFR (Non-Af Amer) 46.5 58.3 BUN/Creatinine Ratio 34.8 H 32.6 H Glucose 113 H 70 Calcium 7.2 L 7.0 L Magnesium 1.7 L Triglycerides 46 Cholesterol 69 LDL Cholesterol 22 HDL Cholesterol 37.8 Assessment: POD# 2 s/p exlap right colectomy for necrosis of cecum and ascending colon. Post-op ileus SVT resolved ? CVA-MRI pending Plan: D/C pedraza IV abx Transfer to [facility] on telemetry Ice chips Sub q heparin, ASA and H2 [place] Change IV to LR--acidosis Discussed care with both sons and Dr. Coyle and Dr. Ly, appreciate all care.
--- NOTE | 2019-03-23 11:06 | PN ---
Date of Service: 03/23/19 Critical Care Services: Had an uneventful evening, except for a very brief run of an SVT (?AFib). This AM, is alert, oriented, and resting comfortably in bed. Vital Signs: Temp Pulse Resp BP SpO2 FiO2 98.2 F 78 22 146/67 97 Physical Exam: Gen: As mentioned HEENT: No facial asymmetry Lungs: Clear Cardiac: Reg rhythm Abdomen: No change from exam yesterday Extremities: No cyanosis or edema Neuro: Right leg strength 2/4; right arm strength 3/4 Fluid Balance (Past 24 Hours): I= O= Net Intake & Output 03/21/19 03/22/19 03/23/19 06:59 06:59 06:59 Intake Total 1050 2912 2956 Output Total 1500 2855 Balance 1050 1412 101 Weight 138 lb 156 lb 4.924 oz 153 lb 10.595 oz Intake: IV Fluids 1050 2688 2956 LR 1300 NS (0.9%) 188 677 NS w/ 10K 1000 2279 IVPB 224 ABX - ZOSYN 224 Output: NG Tube Drainage Amount 200 50 Urine 400 Adan 800 2805 Estimated Blood Loss 100 Other: Estimated Blood Loss per OR notes. Comment Labs: 03/22/19 03/23/19 03/23/19 04:37 05:33 05:33 WBC 10.5 RBC 3.00 L Hgb 8.5 L Hct 25 L MCV 83 MCH 28 MCHC 34 RDW 15 Plt Count 167 MPV 7.7 Sodium 136 140 Potassium 3.5 TNP Chloride 113 H 118 H Carbon Dioxide 18 L 17 L Anion Gap 5 5 BUN 39 H 30 H Creatinine 1.12 H 0.92 Est GFR ( Amer) 56.2 70.5 Est GFR (Non-Af Amer) 46.5 58.3 BUN/Creatinine Ratio 34.8 H 32.6 H Glucose 113 H 70 Calcium 7.2 L 7.0 L Magnesium 1.7 L Triglycerides 46 Cholesterol 69 LDL Cholesterol 22 HDL Cholesterol 37.8 Studies: Head and neck CTA (yesterday) - No obstruction or hemorrhage Nutrition: Ice chips only Impression: 1. Hyperchloremic acidosis from 0.9% NaCL infusions 2. Hypomagnesemia 3. No concerns in relation to abdominal surgery. 4. Strength improved in right arm, but still with right leg weakness. Plan: 1. D/C saline infusions 2. Magnesium repletion 3. Advance diet to full liquids 4. PT consult 5. Antiplatelet Rx with ASA 6. Transfer out of ICU, but continue monitoring cardiac rhythm. Critical Care Time: 35 minutes
[2019-03-23] MEDS ORDERED: Magnesium Sulfate 2 GM IV* 2 GM/50 ML BAG IVPB ONE (11:14)
[2019-03-23] MEDS: Lactated Ringers 1000 ML Bag* 1,000 ML IV SCH ×2 (11:37→17:21)
[2019-03-23 11:39] LABS: T4, Total 6.71 mcg/dL (6.09-12.23)
[2019-03-23 11:41] LABS: TSH (Thyroid Stimulating Horm) 1.73 mcIU/mL (0.34-5.60)
[2019-03-23 11:52] LABS: Folate 8.97 ng/mL (>3.99)
[2019-03-23 18:43] LABS: TSH (Thyroid Stimulating Horm) 1.44 mcIU/mL (0.34-5.60)
[2019-03-23 18:45] LABS: Free T4 1.13 ng/dL (0.61-1.12)
[2019-03-23 18:54] LABS: Folate 10.09 ng/mL (>3.99)
[2019-03-23] MEDS: TRAVOPROST BOTH EYES SCH (21:25)
[2019-03-23] MEDS: TIMOLOL BOTH EYES SCH (21:25)
[2019-03-24] MEDS: ZOSYN 3.375 GM Q8H per EXTENDED INFUSION IVPB SCH ×6 (05:29→21:01)
[2019-03-24] MEDS: Heparin VIAL(*) 5000 UNITS/ML VIAL (FIVE THOUSAND) SUBCUT SCH ×3 (05:41→21:01)
[2019-03-24] MEDS: Lactated Ringers 1000 ML Bag* 1,000 ML IV SCH (07:59)
[2019-03-24] MEDS: Aspirin 81 mg CHEW TAB* 81 MG TAB.CHEW PO SCH (08:03)
[2019-03-24 08:32] LABS: BUN/Creatinine Ratio 33.7 (8-20); Calcium 7.6 mg/dL (8.6-10.3); EGFR African American 73.3 (>60); EGFR Non-African American 60.6 (>60); Magnesium 2.2 mg/dL (1.9-2.7); Potassium 2.9 mmol/L (3.5-5.0)
--- NOTE | 2019-03-24 09:28 | PN ---
Subjective Date of Service: 03/24/19 Interval History: Tamica had an uneventful night. Her sons are at the bedside this morning and volunteer to interpret and decline an blue leather sorter. She agrees. She has no complaints this morning. She just had a large bowel movement. She has no pain, no nausea. She believes her lower extremity weakness is improving. I note her to be tachypneic and probe for shortness of breath but she does not particularly feel short of breath unless pushed, and admits she did when she got up to walk to the bathroom. Still on ice chips only. Objective Active Medications: Acetaminophen (Tylenol Tab*) 650 mg PO Q4H PRN PRN Reason: MILD PAIN or TEMP > 100.4 Acetaminophen (Tylenol Supp*) 650 mg [place] Q4H PRN PRN Reason: MILD PAIN or TEMP > 100.4 Aspirin (Aspirin 81 Mg Chew Tab*) 81 mg PO DAILY [facility] Last Admin: 03/24/19 08:03 Dose: 81 mg Heparin Sodium (Porcine) (Heparin Vial(*)) 5,000 units SUBCUT Q8H [facility] Last Admin: 03/24/19 05:41 Dose: 5,000 units Piperacillin Sod/Tazobactam (Sod 3.375 gm/ Sodium Chloride) 100 mls @ 25 mls/ hr IVPB Q8H [facility] Last Admin: 03/24/19 05:29 Dose: 25 mls/hr Lactated Ringer's (Lactated Ringers 1000 Ml Bag*) 1,000 mls @ 75 mls/hr IV PER RATE [facility] Last Admin: 03/24/19 07:59 Dose: 75 mls/hr Potassium Chloride (Potassium Chloride 20 Meq/100 Ml Ivpremix*) 20 meq in 100 mls @ 50 mls/hr IV Q2H [facility] Stop: 03/24/19 15:59 Morphine Sulfate (Morphine Inj (Syringe))*) 2 mg IV Q4H PRN PRN Reason: PAIN - MODERATE Last Admin: 03/22/19 10:32 Dose: 2 mg Morphine Sulfate (Morphine Inj (Syringe)*) 4 mg IV Q2H PRN PRN Reason: PAIN - SEVERE Pto:(Travoprost/ (Timolol Eye Drops)) 1 drop BOTH EYES BEDTIME [facility] Last Admin: 03/23/19 21:25 Dose: 1 drop Ondansetron HCl (Zofran Inj*) 4 mg IV Q4H PRN PRN Reason: NAUSEA/VOMITING Last Admin: 03/21/19 09:24 Dose: 4 mg Pharmacy Consult (Zosyn Per Pharmacy*) 1 note FOLLOW UP .ZOSYN PER PHARMACY [facility] Vital Signs - 8 hr 03/24/19 03/24/19 03/24/19 02:26 03:50 04:08 Temperature 97.8 F Pulse Rate 79 Respiratory 18 Rate Blood Pressure 161/75 171/77 (mmHg) O2 Sat by Pulse 94 96 Oximetry Oxygen Devices in Use Now: Nasal Cannula Appearance: alert, well appearing, mildly tachypneic Eyes: No Scleral Icterus Ears/Nose/Mouth/Throat: NL Teeth, Lips, Gums Neck: NL Appearance and Movements; NL JVP, - - no JVP Respiratory: Symmetrical Chest Expansion and Respiratory Effort, Clear to Auscultation, - - tachypneic, no distress, no crackles or rhonchi Cardiovascular: NL Sounds; No Murmurs; No JVD, RRR Abdominal: NL Sounds; No Tenderness; No Distention, - - pedraza in place, laparotomy incision dressed without drainage, abd nontender and nondistended Lymphatic: No Cervical Adenopathy Extremities: No Edema Skin: No Rash or Ulcers Neurological: - - RLE 4/5, LLE 5/5, upper extremities 5/5. Result Diagrams: 03/23/19 05:33 03/24/19 07:19 Microbiology and Other Data: Microbiology 03/21/19 09:15 Aerobic Blood Culture - Preliminary Blood Venous No Growth Day 2 Anaerobic Blood Culture - Preliminary No Growth Day 2 03/21/19 09:24 Aerobic Blood Culture - Preliminary Blood Venous No Growth Day 2 Anaerobic Blood Culture - Preliminary No Growth Day 2 03/21/19 01:43 Urine Culture - Final Urine Escherichia Coli 03/21/19 12:05 Nasal Screen MRSA (PCR) - Final Nasal Mrsa Not Detected Assess/Plan/Problems-Billing Assessment: 84 year old woman with history of TIAs, HTN, glaucoma who was visiting her sons from [place] when she had abdominal discomfort and was found to have ishcemic colitis and went to the OR and was found to have 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 Now s/p R hemicolectomy with anastamosis on 03/21. Post-op course was complicated by acute RLE weakness with concern for acute CVA - Patient Problems (1) Ischemic colitis Current Visit: Yes Status: Acute Code(s): K55.9 - VASCULAR DISORDER OF INTESTINE, UNSPECIFIED SNOMED Code(s): 59399041 Comment: likely related to paroxysmal afib vs. athersclerosis already on statin and antiplatelet at home now s/p colectomy (2) Status post exploratory laparotomy Current Visit: Yes Status: Acute Code(s): Z98.890 - OTHER SPECIFIED POSTPROCEDURAL STATES SNOMED Code(s): 392901550 Comment: POD #3 healing well (3) Acute CVA (cerebrovascular accident) Current Visit: Yes Status: Acute Code(s): I63.9 - CEREBRAL INFARCTION, UNSPECIFIED SNOMED Code(s): 164559180 Comment: was outside the window for TPA, so treated conservatively MRI today ASA started this weekend. DAPT deferred due to recent surgery. TTE shows PFO; check leg dopplers today PT/OT ordered for today (4) PFO (patent foramen ovale) Current Visit: Yes Status: Acute Code(s): Q21.1 - ATRIAL SEPTAL DEFECT SNOMED Code(s): 755574318 Comment: lower extremity dopplers today (5) Paroxysmal atrial fibrillation Current Visit: Yes Status: Acute Code(s): I48.0 - PAROXYSMAL ATRIAL FIBRILLATION SNOMED Code(s): 545994242 Comment: she will need anticoagulation; this is a new diagnosis for her I discussed anticoagulation with her and her sons--they believe she was on one in [place] but it was a WILKES-2 inhibitor will hold off until discussion with surgery (6) Hypokalemia Current Visit: Yes Status: Acute Code(s): E87.6 - HYPOKALEMIA SNOMED Code( s): 21500919 Comment: replete today likely related to no po intake (7) Acute respiratory failure with hypoxia Current Visit: Yes Status: Acute Code(s): J96.01 - ACUTE RESPIRATORY FAILURE WITH HYPOXIA SNOMED Code(s): 97859897 Comment: CXR now Status and Disposition: inpatient; needs diet advancement, PT/OT, neuro follow up, MRI
[2019-03-24] MEDS: KCL 20 MEQ/100 ML IVPREMIX* 20 MEQ/100 ML BAG IV SCH ×3 (09:38→16:00)
--- NOTE | 2019-03-24 11:16 | PN ---
Progress Note - Progress Note Date of Service: 03/24/19 SOAP: Subjective:passing flatus and had bowel movement this am;minimal incisional pain [] Objective: Vital Signs Temp 97.6 F 03/24/19 08:00 Pulse 77 03/24/19 08:00 Resp 20 03/24/19 08:00 BP 173/80 03/24/19 08:00 Pulse Ox 96 03/24/19 08:00 Intake & Output 03/23/19 03/24/19 03/24/19 18:59 06:59 18:59 Intake Total 1102 0 Output Total 334 504 7871 Balance 497 -400 -1150 Weight 154 lb 14.4 oz Intake: IV Fluids 1052 LR 276 NS w/ 10K 776 Oral 50 0 Output: Adan 576 651 1757 lungs:clear bilat;heart:RRR;abd:+bs;soft;mild distention;midline incision c/d/i with buffy,no infection,dsd replaced;ext:nontender calves,no edema;neuro:son interprets for her(speaks only Guinean),says her speech is clear,no confusion; hand residential advisor are strong bilat;plantar flexion and dorsiflexion strong bilat [] Assessment:pod#3 s/p ex lap,right colectomy for necrotic r colon;gi function returning [] Plan:start clear liquids slowly appreciate Hosp medical management PT/OT eval today encourage inspiron []
[2019-03-24] MEDS: TIMOLOL BOTH EYES SCH (21:10)
[2019-03-24] MEDS: TRAVOPROST BOTH EYES SCH (21:10)
[2019-03-24] MEDS ORDERED: Adenosine* 3 MG/ML VIAL IV PUSH ONE (22:00)
[2019-03-24] MEDS ORDERED: Adenosine SYRINGE* 6 MG/2 ML IV PUSH ONE (22:00)
[2019-03-24] MEDS ORDERED: Adenosine* 3 MG/ML VIAL IV PUSH PRN (22:05)
[2019-03-25] MEDS: ZOSYN 3.375 GM Q8H per EXTENDED INFUSION IVPB SCH ×6 (05:15→21:34)
[2019-03-25] MEDS: Heparin VIAL(*) 5000 UNITS/ML VIAL (FIVE THOUSAND) SUBCUT SCH ×3 (05:34→21:27)
[2019-03-25] MEDS: Aspirin 81 mg CHEW TAB* 81 MG TAB.CHEW PO SCH (07:50)
--- NOTE | 2019-03-25 08:43 | PN ---
Subjective Date of Service: 03/25/19 Interval History: Tamica had an episode of SVT while walking to the bathroom last night that resolved spontaneously. She has been hypertensive this morning. She feels great. No complaints. Her son is at the bedside and translates. She has no abdominal pain and is tolerating clear liquids. Objective Active Medications: Acetaminophen (Tylenol Tab*) 650 mg PO Q4H PRN PRN Reason: MILD PAIN or TEMP > 100.4 Acetaminophen (Tylenol Supp*) 650 mg OR Q4H PRN PRN Reason: MILD PAIN or TEMP > 100.4 Aspirin (Aspirin 81 Mg Chew Tab*) 81 mg PO DAILY [facility] Last Admin: 03/25/19 07:50 Dose: 81 mg Heparin Sodium (Porcine) (Heparin Vial(*)) 5,000 units SUBCUT Q8H [facility] Last Admin: 03/25/19 05:34 Dose: 5,000 units Piperacillin Sod/Tazobactam (Sod 3.375 gm/ Sodium Chloride) 100 mls @ 25 mls/ hr IVPB Q8H [facility] Last Admin: 03/25/19 05:15 Dose: 25 mls/hr Metoprolol Succinate (Toprol Xl Tab*) 25 mg PO DAILY [facility] Morphine Sulfate (Morphine Inj (Syringe))*) 2 mg IV Q4H PRN PRN Reason: PAIN - MODERATE Last Admin: 03/22/19 10:32 Dose: 2 mg Morphine Sulfate (Morphine Inj (Syringe)*) 4 mg IV Q2H PRN PRN Reason: PAIN - SEVERE Pto:(Travoprost/ (Timolol Eye Drops)) 1 drop BOTH EYES BEDTIME [facility] Last Admin: 03/24/19 21:10 Dose: Not Given Ondansetron HCl (Zofran Inj*) 4 mg IV Q4H PRN PRN Reason: NAUSEA/VOMITING Last Admin: 03/21/19 09:24 Dose: 4 mg Pharmacy Consult (Zosyn Per Pharmacy*) 1 note FOLLOW UP .ZOSYN PER PHARMACY [facility] Vital Signs - 8 hr 03/25/19 03/25/19 03:36 08:00 Temperature 97.5 F 97.7 F Pulse Rate 84 72 Respiratory 16 16 Rate Blood Pressure 173/81 172/85 (mmHg) O2 Sat by Pulse 95 98 Oximetry Oxygen Devices in Use Now: None Appearance: alert, well appearing, resting comfortably in bed Eyes: No Scleral Icterus Ears/Nose/Mouth/Throat: NL Teeth, Lips, Gums Neck: NL Appearance and Movements; NL JVP Respiratory: Symmetrical Chest Expansion and Respiratory Effort, Clear to Auscultation Cardiovascular: NL Sounds; No Murmurs; No JVD, RRR Abdominal: NL Sounds; No Tenderness; No Distention, - - incision is stapled, clean, no erythema or drainage, abd is soft and nontender Lymphatic: No Cervical Adenopathy Extremities: No Edema Neurological: NL Muscle Strength and Tone, - - 5/5 in both legs and arms Result Diagrams: 03/25/19 09:46 03/25/19 09:46 Microbiology and Other Data: Microbiology 03/21/19 09:15 Aerobic Blood Culture - Preliminary Blood Venous No Growth Day 2 Anaerobic Blood Culture - Preliminary No Growth Day 2 03/21/19 09:24 Aerobic Blood Culture - Preliminary Blood Venous No Growth Day 2 Anaerobic Blood Culture - Preliminary No Growth Day 2 03/21/19 01:43 Urine Culture - Final Urine Escherichia Coli 03/21/19 12:05 Nasal Screen MRSA (PCR) - Final Nasal Mrsa Not Detected Assess/Plan/Problems-Billing Assessment: 84 year old woman with history of TIAs, HTN, glaucoma who was visiting her sons from [place] when she had abdominal discomfort and was found to have ishcemic colitis and went to the OR and was found to have 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 Now s/p R hemicolectomy with anastamosis on 03/21. Post-op course was complicated by acute RLE weakness with concern for acute CVA vs. TIA - Patient Problems (1) Ischemic colitis Current Visit: Yes Status: Acute Code(s): K55.9 - VASCULAR DISORDER OF INTESTINE, UNSPECIFIED SNOMED Code(s): 16392718 Comment: likely related to paroxysmal afib vs. athersclerosis already on statin and antiplatelet at home now s/p colectomy (2) Status post exploratory laparotomy Current Visit: Yes Status: Acute Code(s): Z98.890 - OTHER SPECIFIED POSTPROCEDURAL STATES SNOMED Code(s): 531286334 Comment: POD #4 healing well (3) Acute CVA (cerebrovascular accident) Current Visit: Yes Status: Acute Code(s): I63.9 - CEREBRAL INFARCTION, UNSPECIFIED SNOMED Code(s): 053936223 Comment: symptoms resolved, so suspect TIA more likely was outside the window for TPA, so treated conservatively MRI showed small vessel disease ASA started this weekend. DAPT deferred due to recent surgery. TTE shows PFO; lower extremity dopplers were negative PT/OT (4) PFO (patent foramen ovale) Current Visit: Yes Status: Acute Code(s): Q21.1 - ATRIAL SEPTAL DEFECT SNOMED Code(s): 054242502 Comment: lower extremity dopplers negative (5) Paroxysmal atrial fibrillation Current Visit: Yes Status: Acute Code(s): I48.0 - PAROXYSMAL ATRIAL FIBRILLATION SNOMED Code(s): 748494598 Comment: she will need anticoagulation; this is a new diagnosis for her I discussed anticoagulation with her and her sons--they believe she was on one in [place] but it was actually a WILKES-[address] Garcia--we will wait until diet is advanced and we are sure she is out of the window for surgical complications prior to initiating anticoagulation (6) Hypokalemia Current Visit: Yes Status: Acute Code(s): E87.6 - HYPOKALEMIA SNOMED Code( s): 28335967 Comment: resolved (7) Acute respiratory failure with hypoxia Current Visit: Yes Status: Acute Code(s): J96.01 - ACUTE RESPIRATORY FAILURE WITH HYPOXIA SNOMED Code(s): 26323137 Comment: resolved Status and Disposition: inpatient; needs diet advancement
[2019-03-25] MEDS: Metoprolol Succinate XL TAB* 25 MG PO SCH (08:55)
[2019-03-25 09:55] LABS: ABS Eosinophils 0.1 10^3/ul (0-0.6); ABS Lymphocytes 0.8 10^3/ul (1.0-4.8); ABS Monocytes 0.4 10^3/ul (0-0.8); ABS Neutrophils 5.6 10^3/ul (1.5-7.7); Hematocrit 27 % (35-47); Hemoglobin 9.4 g/dL (12.0-16.0); Lymphocyte % 11.1 %; Mean Corpuscular HGB Conc 35 g/dL (31-36); Mean Corpuscular Hemoglobin 28 pg (27-31); Mean Corpuscular Volume 81 fL (80-97); Mean Platelet Volume 7.4 fL (7.4-10.4); Platelet Count 207 10^3/uL (150-450); Red Blood Count 3.33 10^6 /uL (3.70-4.87); Red Cell Distribution Width 15 % (10-15); White Blood Count 6.8 10^3/uL (3.5-10.8)
[2019-03-25 10:15] LABS: BUN/Creatinine Ratio 26.7 (8-20); Calcium 7.9 mg/dL (8.6-10.3); EGFR African American 76.3 (>60); Potassium 3.8 mmol/L (3.5-5.0)
--- NOTE | 2019-03-25 11:15 | PN ---
Progress Note - Progress Note Date of Service: 03/25/19 SOAP: Subjective: Comfortable, pain is minimal She is having no N/V Passing a small amount of flatus No BM Tolerating some liquids Objective: Temp Pulse Resp BP Pulse Ox 97.7 F 72 16 172/85 98 03/25/19 08:00 03/25/19 08:00 03/25/19 08:00 03/25/19 08:00 03/25/19 08:00 Intake & Output 03/23/19 03/24/19 03/25/19 03/26/19 06:59 06:59 06:59 06:59 Intake Total 2956 1102 2224 120 Output Total 2855 1005 1450 Balance 101 97 774 120 Weight 153 lb 10.595 oz 154 lb 14.4 oz 153 lb 11.2 oz Intake: IV Fluids 2956 1052 1040 110 ABX - ZOSYN 110 LR 276 1040 NS (0.9%) 677 NS w/ 10K 2279 776 IVPB 704 10 ABX - ZOSYN 485 LR 219 NS (0.9%) 10 Oral 50 480 Output: NG Tube Drainage Amount 50 Urine 300 Daan 2805 1005 1150 PEX: Comfortable Abs is soft but slightly distended. Incision is CDI. Bowel sounds are present, not high pitched. Laboratory Results - last 24 hr 03/25/19 03/25/19 09:46 09:46 WBC 6.8 RBC 3.33 L Hgb 9.4 L Hct 27 L MCV 81 MCH 28 MCHC 35 RDW 15 Plt Count 207 MPV 7.4 Neut % (Auto) 81.7 Lymph % (Auto) 11.1 [place] % (Auto) 5.7 Eos % (Auto) 1.0 Baso % (Auto) 0.5 Absolute Neuts (auto) 5.6 Absolute Lymphs (auto) 0.8 L Absolute Monos (auto) 0.4 Absolute Eos (auto) 0.1 Absolute Basos (auto) 0.0 Absolute Nucleated RBC 0.0 Nucleated RBC % 0.0 Sodium 135 Potassium 3.8 Chloride 108 Carbon Dioxide 22 Anion Gap 5 BUN 23 Creatinine 0.86 Est GFR ( Amer) 76.3 Est GFR (Non-Af Amer) 63.0 BUN/Creatinine Ratio 26.7 H Glucose 127 H Calcium 7.9 L Assessment: POD#4 s/p exlap and right colectomy for ischemic necrosis of right colon Post-op ileus CVA Plan: Continue with small amounts of clear liquids-remains distended Increase activity ASA H2 [place] and subq heparin
[2019-03-25] MEDS: NIFEdipine CAP* 10 MG PO SCH ×2 (12:40→21:27)
--- NOTE | 2019-03-25 14:07 | PN ---
Subjective Date of Service: 03/25/19 Objective Active Medications: Acetaminophen (Tylenol Tab*) 650 mg PO Q4H PRN PRN Reason: MILD PAIN or TEMP > 100.4 Acetaminophen (Tylenol Supp*) 650 mg HI Q4H PRN PRN Reason: MILD PAIN or TEMP > 100.4 Aspirin (Aspirin 81 Mg Chew Tab*) 81 mg PO DAILY [facility] Last Admin: 03/25/19 07:50 Dose: 81 mg Heparin Sodium (Porcine) (Heparin Vial(*)) 5,000 units SUBCUT Q8H [facility] Last Admin: 03/25/19 13:22 Dose: 5,000 units Piperacillin Sod/Tazobactam (Sod 3.375 gm/ Sodium Chloride) 100 mls @ 25 mls/ hr IVPB Q8H [facility] Last Admin: 03/25/19 13:22 Dose: 25 mls/hr Metoprolol Succinate (Toprol Xl Tab*) 25 mg PO DAILY [facility] Last Admin: 03/25/19 08:55 Dose: 25 mg Morphine Sulfate (Morphine Inj (Syringe))*) 2 mg IV Q4H PRN PRN Reason: PAIN - MODERATE Last Admin: 03/22/19 10:32 Dose: 2 mg Morphine Sulfate (Morphine Inj (Syringe)*) 4 mg IV Q2H PRN PRN Reason: PAIN - SEVERE Nifedipine (Procardia Cap*) 10 mg PO TID [facility] Last Admin: 03/25/19 12:40 Dose: 10 mg Pto:(Travoprost/ (Timolol Eye Drops)) 1 drop BOTH EYES BEDTIME [facility] Last Admin: 03/24/19 21:10 Dose: Not Given Ondansetron HCl (Zofran Inj*) 4 mg IV Q4H PRN PRN Reason: NAUSEA/VOMITING Last Admin: 03/21/19 09:24 Dose: 4 mg Pharmacy Consult (Zosyn Per Pharmacy*) 1 note FOLLOW UP .ZOSYN PER PHARMACY [facility] Vital Signs - 8 hr 03/25/19 03/25/19 03/25/19 08:00 11:37 13:59 Temperature 97.7 F 98.2 F Pulse Rate 72 74 Respiratory 16 20 Rate Blood Pressure 172/85 182/84 143/70 (mmHg) O2 Sat by Pulse 98 98 Oximetry Oxygen Devices in Use Now: None Result Diagrams: 03/25/19 09:46 03/25/19 09:46 Microbiology and Other Data: Microbiology 03/21/19 09:15 Aerobic Blood Culture - Preliminary Blood Venous No Growth Day 2 Anaerobic Blood Culture - Preliminary No Growth Day 2 03/21/19 09:24 Aerobic Blood Culture - Preliminary Blood Venous No Growth Day 2 Anaerobic Blood Culture - Preliminary No Growth Day 2 03/21/19 01:43 Urine Culture - Final Urine Escherichia Coli 03/21/19 12:05 Nasal Screen MRSA (PCR) - Final Nasal Mrsa Not Detected Assess/Plan/Problems-Billing Assessment: 84 year old woman with history of TIAs, HTN, glaucoma who was visiting her sons from [place] when she had abdominal discomfort and was found to have ishcemic colitis and went to the OR and was found to have 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 Now s/p R hemicolectomy with anastamosis on 03/21. Post-op course was complicated by acute RLE weakness with concern for acute CVA - Patient Problems (1) Ischemic colitis Current Visit: Yes Status: Acute Code(s): K55.9 - VASCULAR DISORDER OF INTESTINE, UNSPECIFIED SNOMED Code(s): 48141231 Comment: likely related to paroxysmal afib vs. athersclerosis already on statin and antiplatelet at home now s/p colectomy (2) Status post exploratory laparotomy Current Visit: Yes Status: Acute Code(s): Z98.890 - OTHER SPECIFIED POSTPROCEDURAL STATES SNOMED Code(s): 451443767 Comment: POD #3 healing well (3) Acute CVA (cerebrovascular accident) Current Visit: Yes Status: Acute Code(s): I63.9 - CEREBRAL INFARCTION, UNSPECIFIED SNOMED Code(s): 163701014 Comment: was outside the window for TPA, so treated conservatively MRI today ASA started this weekend. DAPT deferred due to recent surgery. TTE shows PFO; check leg dopplers today PT/OT ordered for today (4) PFO (patent foramen ovale) Current Visit: Yes Status: Acute Code(s): Q21.1 - ATRIAL SEPTAL DEFECT SNOMED Code(s): 242428257 Comment: lower extremity dopplers today (5) Paroxysmal atrial fibrillation Current Visit: Yes Status: Acute Code(s): I48.0 - PAROXYSMAL ATRIAL FIBRILLATION SNOMED Code(s): 106577757 Comment: she will need anticoagulation; this is a new diagnosis for her I discussed anticoagulation with her and her sons--they believe she was on one in [place] but it was a WILKES-2 inhibitor will hold off until discussion with surgery (6) Hypokalemia Current Visit: Yes Status: Acute Code(s): E87.6 - HYPOKALEMIA SNOMED Code( s): 07273491 Comment: replete today likely related to no po intake (7) Acute respiratory failure with hypoxia Current Visit: Yes Status: Acute Code(s): J96.01 - ACUTE RESPIRATORY FAILURE WITH HYPOXIA SNOMED Code(s): 57573486 Comment: CXR now Status and Disposition: inpatient; needs diet advancement, PT/OT, neuro follow up, MRI
--- NOTE | 2019-03-25 15:16 | PN ---
Subjective Date of Service: 03/25/19 Length of Stay: 4 Days Neurology is following for the evaluation and management of her transient right leg weakness. Interval History: The patient is resting in bed and denied any focal deficits. She has been walking around without any assistance. She no longer has right arm or leg weakness. She thinks her symptoms resolved Sunday night-Sunday morning. She denied any headache, visual disturbance, or swallowing impairment. MRI brain without contrast completed on 03/24/2019 showed moderate chronic small vessel disease with no evidence of acute stroke. Review of Systems: Denied CP, SOB, or palpitations. Objective Active Medications: Acetaminophen (Tylenol Tab*) 650 mg PO Q4H PRN PRN Reason: MILD PAIN or TEMP > 100.4 Acetaminophen (Tylenol Supp*) [address] Q4H PRN PRN Reason: MILD PAIN or TEMP > 100.4 Aspirin (Aspirin 81 Mg Chew Tab*) 81 mg PO DAILY [facility] Last Admin: 03/25/19 07:50 Dose: 81 mg Heparin Sodium (Porcine) (Heparin Vial(*)) 5,000 units SUBCUT Q8H [facility] Last Admin: 03/25/19 13:22 Dose: 5,000 units Piperacillin Sod/Tazobactam (Sod 3.375 gm/ Sodium Chloride) 100 mls @ 25 mls/ hr IVPB Q8H [facility] Last Admin: 03/25/19 13:22 Dose: 25 mls/hr Metoprolol Succinate (Toprol Xl Tab*) 25 mg PO DAILY [facility] Last Admin: 03/25/19 08:55 Dose: 25 mg Morphine Sulfate (Morphine Inj (Syringe))*) 2 mg IV Q4H PRN PRN Reason: PAIN - MODERATE Last Admin: 03/22/19 10:32 Dose: 2 mg Morphine Sulfate (Morphine Inj (Syringe)*) 4 mg IV Q2H PRN PRN Reason: PAIN - SEVERE Nifedipine (Procardia Cap*) 10 mg PO TID [facility] Last Admin: 03/25/19 12:40 Dose: 10 mg Pto:(Travoprost/ (Timolol Eye Drops)) 1 drop BOTH EYES BEDTIME [facility] Last Admin: 03/24/19 21:10 Dose: Not Given Ondansetron HCl (Zofran Inj*) 4 mg IV Q4H PRN PRN Reason: NAUSEA/VOMITING Last Admin: 03/21/19 09:24 Dose: 4 mg Pharmacy Consult (Zosyn Per Pharmacy*) 1 note FOLLOW UP .ZOSYN PER PHARMACY [facility] Vital Signs 03/25/19 03/25/19 11:37 13:59 Temperature 98.2 F Pulse Rate 74 Respiratory 20 Rate Blood Pressure 182/84 143/70 (mmHg) O2 Sat by Pulse 98 Oximetry Intake and Output Last 24 Hours 03/23/19 03/24/19 03/25/19 03/26/19 06:59 06:59 06:59 06:59 Intake Total 2956 1102 2224 480 Output Total 2855 1005 1450 Balance 101 97 774 480 Weight 153 lb 10.595 oz 154 lb 14.4 oz 153 lb 11.2 oz Intake: IV Fluids 2956 1052 1040 110 ABX - ZOSYN 110 LR 276 1040 NS (0.9%) 677 NS w/ 10K 2279 776 IVPB 704 10 ABX - ZOSYN 485 LR 219 NS (0.9%) 10 Oral 50 480 360 Output: NG Tube Drainage Amount 50 Urine 300 Adan 2805 1005 1150 Other: # Bowel Movements 3 Estimated Stool Amount Medium Oxygen Devices in Use Now: None Neurology Exam: General: Well nourished, well developed, and in no acute distress HEENT: Normocephelic/atraumatic, sclera anicteric, mucous membranes moist Neck: Supple Extremities: No clubbing, cyanosis, or edema Neurological Findings: Awake, alert, and oriented to person, place, and time. Minimally Sami speaking female. Speech: fluent without dysarthria, repetition intact Cranial Nerve: PERRL, EOM intact, VFF, no nystagmus, face symmetric bilaterally Motor: s/s throughout, proximal and distal extremities x4 tone/bulk normal Sensation: intact to LT/PP bilaterally upper and lower extremities Finger to nose, rapid alternating movements intact without tremor, no dysdiadochokinesia Gait: intact with good arm swing and stride Result Diagrams: 03/25/19 09:46 03/25/19 09:46 Microbiology and Other Data: Microbiology 03/21/19 09:15 Aerobic Blood Culture - Preliminary Blood Venous No Growth Day 2 Anaerobic Blood Culture - Preliminary No Growth Day 2 03/21/19 09:24 Aerobic Blood Culture - Preliminary Blood Venous No Growth Day 2 Anaerobic Blood Culture - Preliminary No Growth Day 2 03/21/19 01:43 Urine Culture - Final Urine Escherichia Coli 03/21/19 12:05 Nasal Screen MRSA (PCR) - Final Nasal Mrsa Not Detected Assessment/Plan 1. Transient right hemiparesis mostly involving the right lower extremity. - Unclear etiology. The differential diagnosis include atypical prolonged TIA, stroke not seen on MRI, or non-vascular related weakness. She doesn't have any pain, or any neurological complaints as a matter of fact, so no further work-up is warranted. - I agree with anticoagulation therapy once cleared by surgery for her paroxysmal atrial fibrillation. In the meantime, continue aspirin until anticoagulation therapy is started.
--- NOTE | 2019-03-25 16:06 | PN ---
Progress Note - Progress Note Date of Service: 03/25/19 Note: S: Patient is POD 4 for right colectomy. She is feeling well. She has mild lower abdominal cramping that comes and goes but is in no pain currently. She denies nausea or vomiting. She is tolerating a liquid diet and is able to pass flatus and says she is burping a lot. She has been having diarrhea a few times a day. She is able to ambulate with assistance or the walker. She denies any cough, fever, SOB or chest pain. O: Vital Signs Temp 98.2 F 03/25/19 11:37 Pulse 74 03/25/19 11:37 Resp 20 03/25/19 11:37 BP 143/70 03/25/19 13:59 Pulse Ox 98 03/25/19 15:55 Intake & Output 03/24/19 03/25/19 03/25/19 18:59 06:59 18:59 Intake Total 1520 704 530 Output Total 1150 300 Balance 370 404 530 Weight 154 lb 14.4 oz 153 lb 11.2 oz Intake: IV Fluids 1040 110 ABX - ZOSYN 110 LR 1040 IVPB 704 10 ABX - ZOSYN 485 LR 219 NS (0.9%) 10 Oral 480 0 410 Output: Urine 300 Adan 1150 Other: # Bowel Movements 3 Estimated Stool Amount Medium General: Well appearing and in NAD. Pleasant and cooperative and able to communicate with the assistance of her son. CV: RRR Lungs: Expiratory wheezes heard throughout posteriorly. Abdomen: Normal bowel sounds heard throughout. Abdomen is soft and mildly distended. Midline incision is intact with buffy and healing well; no erythema , bruising or drainage. No pain to palpation but mild discomfort around the area of her wound. Specimen pathology: Colon, right, hemicolectomy: -- Transmural necrosis with acute serositis. -- No evidence of neoplasia. -- Sessile serrated adenoma. -- All margins are clear. -- Seven benign lymph nodes (0/7). Laboratory Tests 03/25/19 09:46 WBC 6.8 A/P: Patient is POD 4 s/p right colectomy and is doing well. She is A/O x 3 and able to communicate with the help of her son. She is able to ambulate with assistance. She denies any current pain and is not currently taking any pain medication; she does have intermittent, mild lower abdominal cramping that resolves on its own. She has been having diarrhea but denies any blood in her stool or urine. She is tolerating her diet. WBC normal. Wound shows no signs of infection. Advance diet as tolerated and continue abx per attending physician. Continue to monitor for progress. Discuss with surgeon discharge plans and when she would be okay to travel.
[2019-03-25] MEDS: TRAVOPROST BOTH EYES SCH (21:27)
[2019-03-25] MEDS: TIMOLOL BOTH EYES SCH (21:27)
[2019-03-26] MEDS: ZOSYN 3.375 GM Q8H per EXTENDED INFUSION IVPB SCH ×6 (05:42→22:28)
[2019-03-26] MEDS: Heparin VIAL(*) 5000 UNITS/ML VIAL (FIVE THOUSAND) SUBCUT SCH ×3 (05:49→22:45)
[2019-03-26] MEDS: NIFEdipine CAP* 10 MG PO SCH ×3 (08:34→22:44)
[2019-03-26] MEDS: Aspirin 81 mg CHEW TAB* 81 MG TAB.CHEW PO SCH (08:35)
[2019-03-26] MEDS: Metoprolol Succinate XL TAB* 25 MG PO SCH (08:35)
--- NOTE | 2019-03-26 08:35 | PN ---
Subjective Date of Service: 03/26/19 Interval History: Tamica is feeling well today. She had trouble sleeping due to her roommate, but otherwise had an uneventful night. Her son is at the bedside. She has no complaints. She is open to the idea of diet advancement, though notes she is not particularly hungry. No pain, distention, bloating. Still having frequent bowel movements--says they alternate between loose and hard. Objective Active Medications: Acetaminophen (Tylenol Tab*) 650 mg PO Q4H PRN PRN Reason: MILD PAIN or TEMP > 100.4 Acetaminophen (Tylenol Supp*) 650 mg [place] Q4H PRN PRN Reason: MILD PAIN or TEMP > 100.4 Aspirin (Aspirin 81 Mg Chew Tab*) 81 mg PO DAILY [facility] Last Admin: 03/25/19 07:50 Dose: 81 mg Heparin Sodium (Porcine) (Heparin Vial(*)) 5,000 units SUBCUT Q8H [facility] Last Admin: 03/26/19 05:49 Dose: 5,000 units Piperacillin Sod/Tazobactam (Sod 3.375 gm/ Sodium Chloride) 100 mls @ 25 mls/ hr IVPB Q8H [facility] Last Admin: 03/26/19 05:42 Dose: 25 mls/hr Metoprolol Succinate (Toprol Xl Tab*) 25 mg PO DAILY [facility] Last Admin: 03/25/19 08:55 Dose: 25 mg Morphine Sulfate (Morphine Inj (Syringe))*) 2 mg IV Q4H PRN PRN Reason: PAIN - MODERATE Last Admin: 03/22/19 10:32 Dose: 2 mg Morphine Sulfate (Morphine Inj (Syringe)*) 4 mg IV Q2H PRN PRN Reason: PAIN - SEVERE Nifedipine (Procardia Cap*) 10 mg PO TID [facility] Last Admin: 03/25/19 21:27 Dose: 10 mg Pto:(Travoprost/ (Timolol Eye Drops)) 1 drop BOTH EYES BEDTIME [facility] Last Admin: 03/25/19 21:27 Dose: Not Given Ondansetron HCl (Zofran Inj*) 4 mg IV Q4H PRN PRN Reason: NAUSEA/VOMITING Last Admin: 03/21/19 09:24 Dose: 4 mg Pharmacy Consult (Zosyn Per Pharmacy*) 1 note FOLLOW UP .ZOSYN PER PHARMACY [facility] Vital Signs - 8 hr 03/26/19 03/26/19 03/26/19 03:20 07:38 08:00 Temperature 98.7 F 98.2 F Pulse Rate 78 76 Respiratory 16 18 16 Rate Blood Pressure 135/69 139/66 (mmHg) O2 Sat by Pulse 95 95 Oximetry Oxygen Devices in Use Now: None Appearance: alert, well appearing Eyes: No Scleral Icterus Ears/Nose/Mouth/Throat: NL Teeth, Lips, Gums Neck: NL Appearance and Movements; NL JVP Respiratory: Symmetrical Chest Expansion and Respiratory Effort, Clear to Auscultation Cardiovascular: NL Sounds; No Murmurs; No JVD, RRR Abdominal: - - laparotomy, buffy, clean and dry, no erythema or drainage. soft, nontender. bowel sounds are active. Extremities: No Edema Skin: No Rash or Ulcers Result Diagrams: 03/25/19 09:46 03/25/19 09:46 Microbiology and Other Data: Microbiology 03/21/19 09:15 Aerobic Blood Culture - Preliminary Blood Venous No Growth Day 2 Anaerobic Blood Culture - Preliminary No Growth Day 2 03/21/19 09:24 Aerobic Blood Culture - Preliminary Blood Venous No Growth Day 2 Anaerobic Blood Culture - Preliminary No Growth Day 2 03/21/19 01:43 Urine Culture - Final Urine Escherichia Coli 03/21/19 12:05 Nasal Screen MRSA (PCR) - Final Nasal Mrsa Not Detected Assess/Plan/Problems-Billing Assessment: 84 year old woman with history of TIAs, HTN, glaucoma who was visiting her sons from [place] when she had abdominal discomfort and was found to have ishcemic colitis and went to the OR and was found to have 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 Now s/p R hemicolectomy with anastamosis on 03/21. Post-op course was complicated by acute RLE weakness with concern for acute CVA vs. TIA - Patient Problems (1) Status post exploratory laparotomy Current Visit: Yes Status: Acute Code(s): Z98.890 - OTHER SPECIFIED POSTPROCEDURAL STATES SNOMED Code(s): 361041263 Comment: POD #5 complicated by some post-op ileus, which is resolving having BMs, no distention or pain, will advance diet for lunch today if okay with surgeon (2) Ischemic colitis Current Visit: Yes Status: Acute Code(s): K55.9 - VASCULAR DISORDER OF INTESTINE, UNSPECIFIED SNOMED Code(s): 06535443 Comment: likely related to paroxysmal afib vs. athersclerosis already on statin and antiplatelet at home now s/p colectomy (3) Acute CVA (cerebrovascular accident) Current Visit: Yes Status: Acute Code(s): I63.9 - CEREBRAL INFARCTION, UNSPECIFIED SNOMED Code(s): 881916756 Comment: symptoms resolved, so suspect TIA more likely was outside the window for TPA, so treated conservatively MRI showed small vessel disease ASA started this weekend. DAPT deferred due to recent surgery. TTE shows PFO; lower extremity dopplers were negative PT/OT place for therapeutic anticoagulation when safe from a surgical standpoint; no need to bridge (4) PFO (patent foramen ovale) Current Visit: Yes Status: Acute Code(s): Q21.1 - ATRIAL SEPTAL DEFECT SNOMED Code(s): 527033515 Comment: lower extremity dopplers negative (5) Paroxysmal atrial fibrillation Current Visit: Yes Status: Acute Code(s): I48.0 - PAROXYSMAL ATRIAL FIBRILLATION SNOMED Code(s): 719554537 Comment: she will need anticoagulation; this is a new diagnosis for her I discussed anticoagulation with her and her sons--they believe she was on one in [place] but it was actually a WILKES-[address] inhibitor [address] Garcia--we will wait until diet is advanced and we are sure she is out of the window for surgical complications prior to initiating anticoagulation (6) Hypokalemia Current Visit: Yes Status: Acute Code(s): E87.6 - HYPOKALEMIA SNOMED Code( s): 11604620 Comment: resolved (7) Acute respiratory failure with hypoxia Current Visit: Yes Status: Acute Code(s): J96.01 - ACUTE RESPIRATORY FAILURE WITH HYPOXIA SNOMED Code(s): 58569557 Comment: resolved (8) Anemia Current Visit: Yes Status: Acute Code(s): D64.9 - ANEMIA, UNSPECIFIED SNOMED Code(s): 508370711 Comment: normocytic and likely related to intra-op blood loss Status and Disposition: inpatient; needs diet advancement
--- NOTE | 2019-03-26 16:35 | PN ---
Progress Note - Progress Note Date of Service: 03/26/19 SOAP: Subjective: Comfortable in bed, without complaints [] Objective: Vital Signs Temp 98.9 F 03/26/19 15:15 Pulse 79 03/26/19 15:15 Resp 20 03/26/19 15:15 BP 138/61 03/26/19 15:15 Pulse Ox 97 03/26/19 15:15 Intake & Output 03/25/19 03/26/19 03/26/19 18:59 06:59 18:59 Intake Total 354 777 4787 Balance 449 591 2101 Weight 155 lb 4.8 oz Intake: IV Fluids 110 10 ABX - ZOSYN 110 10 IVPB 10 122 100 ABX - ZOSYN 122 100 NS (0.9%) 10 Oral 410 0 980 Other: Estimated Void Large # Bowel Movements 3 Estimated Stool Amount Medium Large Small # Voids 1 Laboratory Tests 03/21/19 03/21/19 03/22/19 00:53 09:05 04:37 WBC 11.2 H 15.2 H 11.1 H 03/23/19 03/25/19 05:33 09:46 WBC 10.5 6.8 PEX: Gen: NAD, Comfortable in bed Chest: CTA CVS: RRR Abd: soft, non tender, incision C/D/I, buffy in place Ext: Calves soft non tender [] Assessment: POD 5 S/P right colectomy for right colon ischemic necrosis, post op ileus resolving BM now soft [] Plan: slowly advance diet, observation, OOB with PT, DVT prophylaxix sub q heparin []
[2019-03-26] MEDS: TRAVOPROST BOTH EYES SCH (22:28)
[2019-03-26] MEDS: TIMOLOL BOTH EYES SCH (22:28)
[2019-03-27] MEDS: ZOSYN 3.375 GM Q8H per EXTENDED INFUSION IVPB SCH ×6 (05:56→22:18)
[2019-03-27] MEDS: Heparin VIAL(*) 5000 UNITS/ML VIAL (FIVE THOUSAND) SUBCUT SCH ×2 (06:02→15:24)
[2019-03-27 07:48] LABS: Hematocrit 25 % (35-47); Hemoglobin 8.7 g/dL (12.0-16.0); Mean Corpuscular HGB Conc 35 g/dL (31-36); Mean Corpuscular Hemoglobin 28 pg (27-31); Mean Corpuscular Volume 79 fL (80-97); Mean Platelet Volume 7.8 fL (7.4-10.4); Platelet Count 207 10^3/uL (150-450); Red Blood Count 3.13 10^6 /uL (3.70-4.87); Red Cell Distribution Width 14 % (10-15); White Blood Count 5.4 10^3/uL (3.5-10.8)
[2019-03-27 08:04] LABS: BUN/Creatinine Ratio 15.1 (8-20); Calcium 7.7 mg/dL (8.6-10.3); EGFR African American 92.1 (>60); EGFR Non-African American 76.1 (>60); Magnesium 1.6 mg/dL (1.9-2.7)
[2019-03-27 08:11] LABS: Potassium 2.6 mmol/L (3.5-5.0)
[2019-03-27] MEDS ORDERED: Potassium Chloride* LIQUID 20 MEQ/15 ML UDC PO ONE (08:17)
[2019-03-27 08:41] LABS: ABS Eosinophils 0.1 10^3/ul (0-0.6); ABS Lymphocytes 0.6 10^3/ul (1.0-4.8); ABS Monocytes 0.6 10^3/ul (0-0.8); Eosinophil % 2.1 %; Lymphocyte % 11.6 %
[2019-03-27] MEDS: NIFEdipine CAP* 10 MG PO SCH ×3 (08:41→20:37)
[2019-03-27] MEDS: Metoprolol Succinate XL TAB* 25 MG PO SCH (08:41)
[2019-03-27] MEDS: KCL 20 MEQ/100 ML IVPREMIX* 20 MEQ/100 ML BAG IV SCH ×3 (08:41→15:20)
[2019-03-27] MEDS: Aspirin 81 mg CHEW TAB* 81 MG TAB.CHEW PO SCH (08:41)
[2019-03-27 08:44] LABS: Microcytosis 1+; Polychromasia 1+
--- NOTE | 2019-03-27 08:54 | PN ---
Subjective Date of Service: 03/27/19 Interval History: Feeling well on full liquids. No pains, no nausea. Again she appears a little tachypneic today, but her son says she gets short of breath when she ambulates, and this has been going on for a long time. She does not feel short of breath. Objective Active Medications: Acetaminophen (Tylenol Tab*) 650 mg PO Q4H PRN PRN Reason: MILD PAIN or TEMP > 100.4 Acetaminophen (Tylenol Supp*) 650 mg IN Q4H PRN PRN Reason: MILD PAIN or TEMP > 100.4 Aspirin (Aspirin 81 Mg Chew Tab*) 81 mg PO DAILY [facility] Last Admin: 03/27/19 08:41 Dose: 81 mg Heparin Sodium (Porcine) (Heparin Vial(*)) 5,000 units SUBCUT Q8H [facility] Last Admin: 03/27/19 06:02 Dose: 5,000 units Piperacillin Sod/Tazobactam (Sod 3.375 gm/ Sodium Chloride) 100 mls @ 25 mls/ hr IVPB Q8H [facility] Last Admin: 03/27/19 05:56 Dose: 25 mls/hr Potassium Chloride (Potassium Chloride 20 Meq/100 Ml Ivpremix*) 20 meq in 100 mls @ 50 mls/hr IV Q2H [facility] Stop: 03/27/19 14:59 Last Admin: 03/27/19 08:41 Dose: 50 mls/hr Metoprolol Succinate (Toprol Xl Tab*) 25 mg PO DAILY [facility] Last Admin: 03/27/19 08:41 Dose: 25 mg Morphine Sulfate (Morphine Inj (Syringe))*) 2 mg IV Q4H PRN PRN Reason: PAIN - MODERATE Last Admin: 03/22/19 10:32 Dose: 2 mg Morphine Sulfate (Morphine Inj (Syringe)*) 4 mg IV Q2H PRN PRN Reason: PAIN - SEVERE Nifedipine (Procardia Cap*) 10 mg PO TID [facility] Last Admin: 03/27/19 08:41 Dose: 10 mg Pto:(Travoprost/ (Timolol Eye Drops)) 1 drop BOTH EYES BEDTIME [facility] Last Admin: 03/26/19 22:28 Dose: Not Given Ondansetron HCl (Zofran Inj*) 4 mg IV Q4H PRN PRN Reason: NAUSEA/VOMITING Last Admin: 03/21/19 09:24 Dose: 4 mg Pharmacy Consult (Zosyn Per Pharmacy*) 1 note FOLLOW UP .ZOSYN PER PHARMACY [facility] Vital Signs - 8 hr 03/27/19 03:25 Temperature 98.2 F Pulse Rate 80 Respiratory 16 Rate Blood Pressure 144/61 (mmHg) O2 Sat by Pulse 94 Oximetry Oxygen Devices in Use Now: None Appearance: alert, well appearing Eyes: No Scleral Icterus Ears/Nose/Mouth/Throat: NL Teeth, Lips, Gums, Clear Oropharnyx Neck: NL Appearance and Movements; NL JVP Respiratory: Symmetrical Chest Expansion and Respiratory Effort, - - mildly tachypneic but comfortable Cardiovascular: NL Sounds; No Murmurs; No JVD, RRR Abdominal: - - incision is stapled, clean and dry Extremities: No Edema Skin: No Rash or Ulcers Neurological: Alert and Oriented x 3 Result Diagrams: 03/27/19 06:54 03/27/19 06:54 Microbiology and Other Data: Microbiology 03/21/19 09:15 Aerobic Blood Culture - Preliminary Blood Venous No Growth Day 2 Anaerobic Blood Culture - Preliminary No Growth Day 2 03/21/19 09:24 Aerobic Blood Culture - Preliminary Blood Venous No Growth Day 2 Anaerobic Blood Culture - Preliminary No Growth Day 2 03/21/19 01:43 Urine Culture - Final Urine Escherichia Coli 03/21/19 12:05 Nasal Screen MRSA (PCR) - Final Nasal Mrsa Not Detected Assess/Plan/Problems-Billing Assessment: 84 year old woman with history of TIAs, HTN, glaucoma who was visiting her sons from [place] when she had abdominal discomfort and was found to have ishcemic colitis and went to the OR and was found to have 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 Now s/p R hemicolectomy with anastamosis on 03/21. Post-op course was complicated by acute RLE weakness with concern for acute CVA vs. TIA - Patient Problems (1) Status post exploratory laparotomy Current Visit: Yes Status: Acute Code(s): Z98.890 - OTHER SPECIFIED POSTPROCEDURAL STATES SNOMED Code(s): 121430493 Comment: POD #6 complicated by some post-op ileus, which is resolved having BMs, no distention or pain, will advance diet again today to unrestricted (2) Ischemic colitis Current Visit: Yes Status: Acute Code(s): K55.9 - VASCULAR DISORDER OF INTESTINE, UNSPECIFIED SNOMED Code(s): 62182782 Comment: likely related to paroxysmal afib vs. athersclerosis already on statin and antiplatelet at home now s/p colectomy (3) Acute CVA (cerebrovascular accident) Current Visit: Yes Status: Acute Code(s): I63.9 - CEREBRAL INFARCTION, UNSPECIFIED SNOMED Code(s): 269911188 Comment: symptoms resolved, so suspect TIA more likely was outside the window for TPA, so treated conservatively MRI showed small vessel disease ASA started this weekend. DAPT deferred due to recent surgery. TTE shows PFO; lower extremity dopplers were negative PT/OT planfor therapeutic anticoagulation when safe from a surgical standpoint; no need to bridge (4) PFO (patent foramen ovale) Current Visit: Yes Status: Acute Code(s): Q21.1 - ATRIAL SEPTAL DEFECT SNOMED Code(s): 847269961 Comment: lower extremity dopplers negative (5) Paroxysmal atrial fibrillation Current Visit: Yes Status: Acute Code(s): I48.0 - PAROXYSMAL ATRIAL FIBRILLATION SNOMED Code(s): 518252381 Comment: she will need anticoagulation; this is a new diagnosis for her I discussed anticoagulation with her and her sons--they believe she was on one in [place] but it was actually a WILKES-[address] Garcia--we will wait until diet is advanced and we are sure she is out of the window for surgical complications prior to initiating anticoagulation (6) Hypokalemia Current Visit: Yes Status: Acute Code(s): E87.6 - HYPOKALEMIA SNOMED Code( s): 00048176 Comment: replete again today (7) Acute respiratory failure with hypoxia Current Visit: Yes Status: Acute Code(s): J96.01 - ACUTE RESPIRATORY FAILURE WITH HYPOXIA SNOMED Code(s): 86848180 Comment: resolved (8) Anemia Current Visit: Yes Status: Acute Code(s): D64.9 - ANEMIA, UNSPECIFIED SNOMED Code(s): 532461183 Comment: normocytic and likely related to intra-op blood loss Status and Disposition: inpatient; needs diet advancement and safe plan for discharge (she plans to fly back to [facility])
--- NOTE | 2019-03-27 10:50 | PN ---
Progress Note - Progress Note Date of Service: 03/27/19 SOAP: Subjective: Doing well-tolerating po Having BM's and passing flatus Ambulating more Objective: Temp Pulse Resp BP Pulse Ox 97.9 F 83 18 148/77 98 03/27/19 08:54 03/27/19 08:54 03/27/19 08:54 03/27/19 08:54 03/27/19 08:54 Intake & Output 03/25/19 03/26/19 03/27/19 03/28/19 06:59 06:59 06:59 06:59 Intake Total 2224 662 1811 Output Total 1450 Balance 055 652 4732 Weight 153 lb 11.2 oz 155 lb 4.8 oz 150 lb 12.8 oz Intake: IV Fluids 1040 120 10 ABX - ZOSYN 120 10 LR 1040 IVPB 704 132 201 ABX - ZOSYN 485 122 201 LR 219 NS (0.9%) 10 Oral 998 974 1551 Output: Urine 300 Adan 1150 Other: Estimated Void Large # Bowel Movements 3 Estimated Stool Amount Large Small # Voids 1 PEX: Comfortable Abd is soft and non-distended. Bowel sounds are present and normoactive. Incision CDI Laboratory Results - last 24 hr 03/27/19 03/27/19 06:54 06:54 WBC 5.4 RBC 3.13 L Hgb 8.7 L Hct 25 L MCV 79 L MCH 28 MCHC 35 RDW 14 Plt Count 207 MPV 7.8 Neut % (Auto) 74.3 Lymph % (Auto) 11.6 Bibb % (Auto) 11.4 Eos % (Auto) 2.1 Baso % (Auto) 0.6 Absolute Neuts (auto) 4.0 Absolute Lymphs (auto) 0.6 L Absolute Monos (auto) 0.6 Absolute Eos (auto) 0.1 Absolute Basos (auto) 0.0 Absolute Nucleated RBC 0.0 Immature Gran % 4.0 Neutrophils % 76.0 Band Neutrophils % 1.0 Lymphocytes % 14.0 Monocytes % 5.0 Eosinophils % 1.0 Metamyelocytes % 1.0 Myelocytes % 2.0 H Nucleated RBC % 0.0 Normal RBC Morphology Not Reportable Polychromasia 1+ Microcytosis 1+ Sodium 135 Potassium 2.6 L* Chloride 103 Carbon Dioxide 25 Anion Gap 7 BUN 11 Creatinine 0.73 Est GFR ( Amer) 92.1 Est GFR (Non-Af Amer) 76.1 BUN/Creatinine Ratio 15.1 Glucose 79 Calcium 7.7 L Magnesium 1.6 L Assessment: POD# 6 s/p right colectomy for ischemic colon Ileus-resolved Plan: Advance diet to regular Medical management Placement issues-she is ready for discharge from hospital next 24 hrs from surgical standpoint but I don't feel ready for long travel and [place] flight for the next few weeks.
[2019-03-27] MEDS: Apixaban* 5 MG TAB PO SCH (20:37)
[2019-03-27] MEDS: TRAVOPROST BOTH EYES SCH (20:38)
[2019-03-27] MEDS: TIMOLOL BOTH EYES SCH (20:38)
[2019-03-28] MEDS: ZOSYN 3.375 GM Q8H per EXTENDED INFUSION IVPB SCH ×6 (05:09→20:19)
[2019-03-28 06:12] LABS: Hematocrit 24 % (35-47); Hemoglobin 8.1 g/dL (12.0-16.0); Mean Corpuscular HGB Conc 34 g/dL (31-36); Mean Corpuscular Hemoglobin 27 pg (27-31); Mean Corpuscular Volume 80 fL (80-97); Mean Platelet Volume 7.3 fL (7.4-10.4); Platelet Count 234 10^3/uL (150-450); Red Blood Count 2.95 10^6 /uL (3.70-4.87); Red Cell Distribution Width 15 % (10-15); White Blood Count 4.1 10^3/uL (3.5-10.8)
[2019-03-28 06:27] LABS: BUN/Creatinine Ratio 19.7 (8-20); Calcium 7.9 mg/dL (8.6-10.3); EGFR African American 87.9 (>60); EGFR Non-African American 72.7 (>60); Magnesium 1.5 mg/dL (1.9-2.7); Potassium 3.3 mmol/L (3.5-5.0)
[2019-03-28 07:49] LABS: ABS Eosinophils 0.1 10^3/ul (0-0.6); ABS Lymphocytes 0.6 10^3/ul (1.0-4.8); ABS Monocytes 0.6 10^3/ul (0-0.8); ABS Neutrophils 2.7 10^3/ul (1.5-7.7); Eosinophil % 2.9 %; Lymphocyte % 15.3 %; Nucleated Red Blood Cells % 0.1
[2019-03-28 08:21] LABS: ABS Basophils 0.1 10^3/ul (0-0.2); ABS Eosinophils 0.1 10^3/ul (0-0.6); ABS Lymphocytes 1.1 10^3/ul (1.0-4.8); ABS Monocytes 0.6 10^3/ul (0-0.8); ABS Neutrophils 3.2 10^3/ul (1.5-7.7); Eosinophil % 2.5 %; Hematocrit 26 % (35-47); Hemoglobin 8.9 g/dL (12.0-16.0); Lymphocyte % 20.9 %; Mean Corpuscular HGB Conc 35 g/dL (31-36); Mean Corpuscular Hemoglobin 28 pg (27-31); Mean Corpuscular Volume 80 fL (80-97); Mean Platelet Volume 7.7 fL (7.4-10.4); Nucleated Red Blood Cells % 0.1; Platelet Count 260 10^3/uL (150-450); Red Blood Count 3.19 10^6 /uL (3.70-4.87); Red Cell Distribution Width 15 % (10-15); White Blood Count 5.1 10^3/uL (3.5-10.8)
[2019-03-28] MEDS: Apixaban* 5 MG TAB PO SCH (08:31)
[2019-03-28] MEDS: NIFEdipine CAP* 10 MG PO SCH ×3 (08:32→20:14)
[2019-03-28] MEDS: Metoprolol Succinate XL TAB* 25 MG PO SCH (08:32)
[2019-03-28 09:13] LABS: Calcium 8.1 mg/dL (8.6-10.3); EGFR African American 82.9 (>60); EGFR Non-African American 68.5 (>60); Potassium 3.2 mmol/L (3.5-5.0)
[2019-03-28] MEDS: Aspirin 81 mg CHEW TAB* 81 MG TAB.CHEW PO SCH (09:21)
--- NOTE | 2019-03-28 10:52 | PN ---
Progress Note - Progress Note Date of Service: 03/28/19 SOAP: Subjective: Had bloody BM this morning Started on Eliquis last night No abdominal pain, nausea or vomiting Ambulated without difficulty in schneider after BM this AM Objective: Temp Pulse Resp BP Pulse Ox 98.4 F 78 16 149/74 97 03/28/19 07:32 03/28/19 07:32 03/28/19 07:32 03/28/19 07:32 03/28/19 07:32 Intake & Output 03/26/19 03/27/19 03/28/19 03/29/19 06:59 06:59 06:59 06:59 Intake Total 662 1811 1225.9 Balance 662 1811 1225.9 Weight 155 lb 4.8 oz 150 lb 12.8 oz 151 lb 4.8 oz Intake: IV Fluids 120 10 785.9 ABX - ZOSYN 120 10 295.5 NS (0.9%) 192.4 Potassium 298 IVPB 132 201 ABX - ZOSYN 122 201 NS (0.9%) 10 Oral 410 1600 440 Other: Estimated Void Large Medium # Bowel Movements 3 Estimated Stool Amount Large Small Medium # Voids 1 1 PEX: Comfortable, awake and alert and pleasant Lungs are clear Abd is soft and slightly distended. Bowel sounds are present, normactive. Incision CDI. Minimal incisional tenderness. Laboratory Results - last 24 hr 03/28/19 03/28/19 03/28/19 06:05 06:05 08:14 WBC 4.1 5.1 RBC 2.95 L 3.19 L Hgb 8.1 L 8.9 L Hct 24 L 26 L MCV 80 80 MCH 27 28 MCHC 34 35 RDW 15 15 Plt Count 234 260 MPV 7.3 L 7.7 Neut % (Auto) 66.6 62.8 Lymph % (Auto) 15.3 20.9 Beaver % (Auto) 14.1 12.6 Eos % (Auto) 2.9 2.5 Baso % (Auto) 1.1 1.2 Absolute Neuts (auto) 2.7 3.2 Absolute Lymphs (auto) 0.6 L 1.1 Absolute Monos (auto) 0.6 0.6 Absolute Eos (auto) 0.1 0.1 Absolute Basos (auto) 0.0 0.1 Absolute Nucleated RBC 0.0 0.0 Nucleated RBC % 0.1 0.1 Sodium 134 L Potassium 3.3 L Chloride 106 Carbon Dioxide 23 Anion Gap 5 BUN 15 Creatinine 0.76 Est GFR ( Amer) 87.9 Est GFR (Non-Af Amer) 72.7 BUN/Creatinine Ratio 19.7 Glucose 88 Calcium 7.9 L Magnesium 1.5 L 03/28/19 08:45 WBC RBC Hgb Hct MCV MCH MCHC RDW Plt Count MPV Neut % (Auto) Lymph % (Auto) Beaver % (Auto) Eos % (Auto) Baso % (Auto) Absolute Neuts (auto) Absolute Lymphs (auto) Absolute Monos (auto) Absolute Eos (auto) Absolute Basos (auto) Absolute Nucleated RBC Nucleated RBC % Sodium 135 Potassium 3.2 L Chloride 104 Carbon Dioxide 22 Anion Gap 9 BUN 16 Creatinine 0.80 Est GFR ( Amer) 82.9 Est GFR (Non-Af Amer) 68.5 BUN/Creatinine Ratio 20.0 Glucose 96 Calcium 8.1 L Magnesium Assessment: POD# 7 s/p right colectomy for necrosis of colon presumed vascular etiology Post-op CVA LGI bleeding this AM--started on Eliquis (in addition to ASA). Bleeding of this nature and timing after surgery can be secondary to bleeding from the staple line that usually is self limiting and stops on own although now will be complicated by anti-coagulation that cannot be reversed easily. She received only one dose last night and it has been held. She has not had N/V or hematemesis and and appears to be hemodynamically stable at this point, but other sources of hemorrhage need to be considered-upper GI, etc. Also concern that could be another ischemic intestinal event but she appears stable and comfortable with no abdominal pain, a normal WBC, no tachycardia and no signs of sepsis Plan: Hold Eliquis Serial H/H NPO for now Type and screen May need transfusion if persistent bleeding Consider GI consult ? Hematology consult for recommendations of any reversal agents?
--- NOTE | 2019-03-28 12:52 | PN ---
Subjective Date of Service: 03/28/19 Interval History: Three bloody bowel movements since early this morning. No associated abdominal pain, nausea, cramping. She has remained hemodynamically stable. She had a full dinner and breakfast this morning and felt good afterwards. No pain or nausea with eating. Currently NPO. Objective Active Medications: Acetaminophen (Tylenol Tab*) 650 mg PO Q4H PRN PRN Reason: MILD PAIN or TEMP > 100.4 Acetaminophen (Tylenol Supp*) 650 mg NC Q4H PRN PRN Reason: MILD PAIN or TEMP > 100.4 Aspirin (Aspirin 81 Mg Chew Tab*) 81 mg PO DAILY [facility] Last Admin: 03/28/19 09:21 Dose: Not Given Piperacillin Sod/Tazobactam (Sod 3.375 gm/ Sodium Chloride) 100 mls @ 25 mls/ hr IVPB Q8H [facility] Last Admin: 03/28/19 05:09 Dose: 25 mls/hr Metoprolol Succinate (Toprol Xl Tab*) 25 mg PO DAILY [facility] Last Admin: 03/28/19 08:32 Dose: Not Given Morphine Sulfate (Morphine Inj (Syringe)*) 4 mg IV Q2H PRN PRN Reason: PAIN - SEVERE Nifedipine (Procardia Cap*) 10 mg PO TID [facility] Last Admin: 03/28/19 08:32 Dose: Not Given Pto:(Travoprost/ (Timolol Eye Drops)) 1 drop BOTH EYES BEDTIME [facility] Last Admin: 03/27/19 20:38 Dose: Not Given Ondansetron HCl (Zofran Inj*) 4 mg IV Q4H PRN PRN Reason: NAUSEA/VOMITING Last Admin: 03/21/19 09:24 Dose: 4 mg Pharmacy Consult (Zosyn Per Pharmacy*) 1 note FOLLOW UP .ZOSYN PER PHARMACY [facility] Vital Signs - 8 hr 03/28/19 03/28/19 06:56 07:32 Temperature 98.4 F Pulse Rate 78 Respiratory 16 16 Rate Blood Pressure 149/74 (mmHg) O2 Sat by Pulse 97 Oximetry Oxygen Devices in Use Now: None Appearance: alert, well appearing, no distress, no pallor Eyes: No Scleral Icterus Ears/Nose/Mouth/Throat: NL Teeth, Lips, Gums Neck: NL Appearance and Movements; NL JVP Respiratory: Symmetrical Chest Expansion and Respiratory Effort Cardiovascular: NL Sounds; No Murmurs; No JVD, RRR Abdominal: NL Sounds; No Tenderness; No Distention, - - incision stapled and clean, nontender abdomen Lymphatic: No Cervical Adenopathy Extremities: No Edema Skin: No Rash or Ulcers Result Diagrams: 03/28/19 13:17 03/28/19 08:45 Microbiology and Other Data: Microbiology 03/21/19 09:15 Aerobic Blood Culture - Preliminary Blood Venous No Growth Day 2 Anaerobic Blood Culture - Preliminary No Growth Day 2 03/21/19 09:24 Aerobic Blood Culture - Preliminary Blood Venous No Growth Day 2 Anaerobic Blood Culture - Preliminary No Growth Day 2 03/21/19 01:43 Urine Culture - Final Urine Escherichia Coli 03/21/19 12:05 Nasal Screen MRSA (PCR) - Final Nasal Mrsa Not Detected Assess/Plan/Problems-Billing Assessment: 84 year old woman with history of TIAs, HTN, glaucoma who was visiting her sons from [place] when she had abdominal discomfort and was found to have ishcemic colitis and went to the OR and was found to have 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 Now s/p R hemicolectomy with anastamosis on 03/21. Post-op course was complicated by acute RLE weakness with concern for acute CVA vs. TIA - Patient Problems (1) GI bleed Current Visit: Yes Status: Acute Code(s): K92.2 - GASTROINTESTINAL HEMORRHAGE, UNSPECIFIED SNOMED Code(s): 82834460 Comment: most likely lower and from the anastomosis occurred after one dose of eliquis large-bore peripheral IV access obtained hemodynamically stable Hgb stable DC eliquis trend Hgb hold antihypertensives continue IVF (2) Status post exploratory laparotomy Current Visit: Yes Status: Acute Code(s): Z98.890 - OTHER SPECIFIED POSTPROCEDURAL STATES SNOMED Code(s): 646765515 Comment: POD #7 having BMs, no distention or pain, had been tolerating full diet; now back to NPO due to bleed (3) Ischemic colitis Current Visit: Yes Status: Acute Code(s): K55.9 - VASCULAR DISORDER OF INTESTINE, UNSPECIFIED SNOMED Code(s): 75182626 Comment: likely related to paroxysmal afib vs. athersclerosis already on statin and antiplatelet at home now s/p colectomy (4) Acute CVA (cerebrovascular accident) Current Visit: Yes Status: Acute Code(s): I63.9 - CEREBRAL INFARCTION, UNSPECIFIED SNOMED Code(s): 144845622 Comment: symptoms resolved, so suspect TIA more likely was outside the window for TPA, so treated conservatively MRI showed small vessel disease ASA started this weekend--now on hold due to bleed. DAPT deferred due to recent surgery. TTE shows PFO; lower extremity dopplers were negative failed therapeutic anticoagulation (5) PFO (patent foramen ovale) Current Visit: Yes Status: Acute Code(s): Q21.1 - ATRIAL SEPTAL DEFECT SNOMED Code(s): 737844507 Comment: lower extremity dopplers negative (6) Paroxysmal atrial fibrillation Current Visit: Yes Status: Acute Code(s): I48.0 - PAROXYSMAL ATRIAL FIBRILLATION SNOMED Code(s): 264219330 Comment: ultimately will need anticoagulation, but needs more time to heal from a surgical standpoint so on hold for now (7) Hypokalemia Current Visit: Yes Status: Acute Code(s): E87.6 - HYPOKALEMIA SNOMED Code( s): 99520138 Comment: replete again today (8) Acute respiratory failure with hypoxia Current Visit: Yes Status: Acute Code(s): J96.01 - ACUTE RESPIRATORY FAILURE WITH HYPOXIA SNOMED Code(s): 30188673 Comment: resolved (9) Anemia Current Visit: Yes Status: Acute Code(s): D64.9 - ANEMIA, UNSPECIFIED SNOMED Code(s): 883038052 Comment: normocytic and likely related to intra-op blood loss + GI bleed Status and Disposition: inpatient; needs diet advancement, stabilization of GI bleed, and safe plan for discharge (she plans to fly back to [facility])
[2019-03-28 13:29] LABS: Hematocrit 25 % (35-47); Hemoglobin 8.6 g/dL (12.0-16.0)
[2019-03-28] MEDS: NS 0.9% 1000 ML** 1,000 ML IV SCH ×2 (14:58→22:12)
[2019-03-28] MEDS: TRAVOPROST BOTH EYES SCH (20:14)
[2019-03-28] MEDS: TIMOLOL BOTH EYES SCH (20:14)
[2019-03-28 21:05] LABS: Hematocrit 21 % (35-47); Hemoglobin 7.2 g/dL (12.0-16.0)
[2019-03-29 03:41] LABS: Hematocrit 21 % (35-47); Hemoglobin 7.2 g/dL (12.0-16.0)
[2019-03-29] MEDS: NS 0.9% 1000 ML** 1,000 ML IV SCH ×2 (05:10→23:26)
[2019-03-29] MEDS: ZOSYN 3.375 GM Q8H per EXTENDED INFUSION IVPB SCH ×4 (05:14→17:58)
[2019-03-29 06:29] LABS: Hematocrit 22 % (35-47); Hemoglobin 7.5 g/dL (12.0-16.0); Mean Corpuscular HGB Conc 34 g/dL (31-36); Mean Corpuscular Hemoglobin 28 pg (27-31); Mean Corpuscular Volume 81 fL (80-97); Mean Platelet Volume 7.7 fL (7.4-10.4); Platelet Count 248 10^3/uL (150-450); Red Blood Count 2.68 10^6 /uL (3.70-4.87); Red Cell Distribution Width 15 % (10-15); White Blood Count 4.3 10^3/uL (3.5-10.8)
[2019-03-29 06:37] LABS: INR 1.07 (0.82-1.09)
[2019-03-29 06:46] LABS: BUN/Creatinine Ratio 18.4 (8-20); Calcium 7.4 mg/dL (8.6-10.3); EGFR African American 87.9 (>60); EGFR Non-African American 72.7 (>60); Potassium 3.2 mmol/L (3.5-5.0)
[2019-03-29 07:06] LABS: ABS Basophils 0.1 10^3/ul (0-0.2); ABS Eosinophils 0.1 10^3/ul (0-0.6); ABS Lymphocytes 0.9 10^3/ul (1.0-4.8); ABS Monocytes 0.6 10^3/ul (0-0.8); ABS Neutrophils 2.7 10^3/ul (1.5-7.7); Eosinophil % 3.1 %; Lymphocyte % 20.6 %; Nucleated Red Blood Cells % 0.1
--- NOTE | 2019-03-29 08:55 | PN ---
Subjective Date of Service: 03/29/19 Interval History: Several bowel movements overnight which were reported to be more stool than blood. No complaints this morning. She is looking forward to going for a walk. She is hungry. Objective Active Medications: Acetaminophen (Tylenol Tab*) 650 mg PO Q4H PRN PRN Reason: MILD PAIN or TEMP > 100.4 Acetaminophen (Tylenol Supp*) 650 mg ID Q4H PRN PRN Reason: MILD PAIN or TEMP > 100.4 Aspirin (Aspirin 81 Mg Chew Tab*) 81 mg PO DAILY [facility] Last Admin: 03/28/19 09:21 Dose: Not Given Piperacillin Sod/Tazobactam (Sod 3.375 gm/ Sodium Chloride) 100 mls @ 25 mls/ hr IVPB Q8H [facility] Last Admin: 03/29/19 05:14 Dose: 25 mls/hr Sodium Chloride (Ns 0.9% 1000 Ml) 1,000 mls @ 150 mls/hr IV PER RATE [facility] Last Admin: 03/29/19 05:10 Dose: 150 mls/hr Potassium Chloride (Potassium Chloride 20 Meq/100 Ml Ivpremix*) 20 meq in 100 mls @ 50 mls/hr IV Q2H [facility] Stop: 03/29/19 14:59 Metoprolol Succinate (Toprol Xl Tab*) 25 mg PO DAILY [facility] Last Admin: 03/28/19 08:32 Dose: Not Given Nifedipine (Procardia Cap*) 10 mg PO TID [facility] Last Admin: 03/28/19 20:14 Dose: Not Given Pto:(Travoprost/ (Timolol Eye Drops)) 1 drop BOTH EYES BEDTIME [facility] Last Admin: 03/28/19 20:14 Dose: Not Given Ondansetron HCl (Zofran Inj*) 4 mg IV Q4H PRN PRN Reason: NAUSEA/VOMITING Last Admin: 03/21/19 09:24 Dose: 4 mg Pharmacy Consult (Zosyn Per Pharmacy*) 1 note FOLLOW UP .ZOSYN PER PHARMACY [facility] Vital Signs - 8 hr 03/29/19 03:00 Temperature 98.3 F Pulse Rate 78 Respiratory 16 Rate Blood Pressure 138/62 (mmHg) O2 Sat by Pulse 95 Oximetry Oxygen Devices in Use Now: None Appearance: alert, well appearing, in good spirits Eyes: No Scleral Icterus Ears/Nose/Mouth/Throat: NL Teeth, Lips, Gums Neck: NL Appearance and Movements; NL JVP Respiratory: Symmetrical Chest Expansion and Respiratory Effort, Clear to Auscultation Cardiovascular: NL Sounds; No Murmurs; No JVD, RRR Abdominal: NL Sounds; No Tenderness; No Distention, - - incision is clean Lymphatic: No Cervical Adenopathy Extremities: No Edema Skin: No Rash or Ulcers Result Diagrams: 03/29/19 06:02 03/29/19 06:02 Microbiology and Other Data: Microbiology 03/21/19 09:15 Aerobic Blood Culture - Preliminary Blood Venous No Growth Day 2 Anaerobic Blood Culture - Preliminary No Growth Day 2 03/21/19 09:24 Aerobic Blood Culture - Preliminary Blood Venous No Growth Day 2 Anaerobic Blood Culture - Preliminary No Growth Day 2 03/21/19 01:43 Urine Culture - Final Urine Escherichia Coli 03/21/19 12:05 Nasal Screen MRSA (PCR) - Final Nasal Mrsa Not Detected Assess/Plan/Problems-Billing Assessment: 84 year old woman with history of TIAs, HTN, glaucoma who was visiting her sons from [place] when she had abdominal discomfort and was found to have ishcemic colitis and went to the OR and was found to have 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 Now s/p R hemicolectomy with anastamosis on 03/21. Post-op course was complicated by acute RLE weakness with concern for acute CVA vs. TIA - Patient Problems (1) GI bleed Current Visit: Yes Status: Acute Code(s): K92.2 - GASTROINTESTINAL HEMORRHAGE, UNSPECIFIED SNOMED Code(s): 43106572 Comment: most likely lower and from the anastomosis occurred after one dose of eliquis large-bore peripheral IV access obtained hemodynamically stable Hgb dropped below 8; goal >8 given recent TIA discussed transfusion with her and her son, explained risks and benefits and they agree with proceeding with one unit eliquis DC'ed trend Hgb hold antihypertensives continue IVF (2) Status post exploratory laparotomy Current Visit: Yes Status: Acute Code(s): Z98.890 - OTHER SPECIFIED POSTPROCEDURAL STATES SNOMED Code(s): 437647432 Comment: POD #8 having BMs, no distention or pain, had been tolerating full diet; now back to NPO due to bleed (3) Ischemic colitis Current Visit: Yes Status: Acute Code(s): K55.9 - VASCULAR DISORDER OF INTESTINE, UNSPECIFIED SNOMED Code(s): 85505631 Comment: likely related to paroxysmal afib vs. athersclerosis already on statin and antiplatelet at home now s/p colectomy (4) Acute CVA (cerebrovascular accident) Current Visit: Yes Status: Acute Code(s): I63.9 - CEREBRAL INFARCTION, UNSPECIFIED SNOMED Code(s): 744937709 Comment: symptoms resolved, so suspect TIA more likely was outside the window for TPA, so treated conservatively MRI showed small vessel disease ASA started this weekend--now on hold due to bleed. DAPT deferred due to recent surgery. TTE shows PFO; lower extremity dopplers were negative failed therapeutic anticoagulation (5) PFO (patent foramen ovale) Current Visit: Yes Status: Acute Code(s): Q21.1 - ATRIAL SEPTAL DEFECT SNOMED Code(s): 020920366 Comment: lower extremity dopplers negative (6) Paroxysmal atrial fibrillation Current Visit: Yes Status: Acute Code(s): I48.0 - PAROXYSMAL ATRIAL FIBRILLATION SNOMED Code(s): 292894993 Comment: ultimately will need anticoagulation, but needs more time to heal from a surgical standpoint so on hold for now (7) Hypokalemia Current Visit: Yes Status: Acute Code(s): E87.6 - HYPOKALEMIA SNOMED Code( s): 08329617 Comment: replete again today (8) Acute respiratory failure with hypoxia Current Visit: Yes Status: Acute Code(s): J96.01 - ACUTE RESPIRATORY FAILURE WITH HYPOXIA SNOMED Code(s): 71876197 Comment: resolved (9) Anemia Current Visit: Yes Status: Acute Code(s): D64.9 - ANEMIA, UNSPECIFIED SNOMED Code(s): 478365875 Comment: normocytic and likely related to intra-op blood loss + GI bleed transfuse 1U today Status and Disposition: inpatient; needs diet advancement, stabilization of GI bleed, and safe plan for discharge (she plans to fly back to [facility])
[2019-03-29 09:23] LABS: Magnesium 1.5 mg/dL (1.9-2.7)
[2019-03-29] MEDS: KCL 20 MEQ/100 ML IVPREMIX* 20 MEQ/100 ML BAG IV SCH ×5 (10:30→20:43)
[2019-03-29] MEDS: Aspirin 81 mg CHEW TAB* 81 MG TAB.CHEW PO SCH (10:31)
[2019-03-29] MEDS: NIFEdipine CAP* 10 MG PO SCH ×4 (10:32→20:55)
[2019-03-29] MEDS: Metoprolol Succinate XL TAB* 25 MG PO SCH (12:46)
[2019-03-29] MEDS ORDERED: Magnesium Sulfate 2 GM IV* 2 GM/50 ML BAG IVPB ONE (14:01)
[2019-03-29 19:08] LABS: ABS Basophils 0.1 10^3/ul (0-0.2); ABS Eosinophils 0.1 10^3/ul (0-0.6); ABS Lymphocytes 0.9 10^3/ul (1.0-4.8); ABS Monocytes 0.6 10^3/ul (0-0.8); ABS Neutrophils 3.5 10^3/ul (1.5-7.7); Eosinophil % 2.7 %; Hematocrit 27 % (35-47); Hemoglobin 9.1 g/dL (12.0-16.0); Lymphocyte % 16.9 %; Mean Corpuscular HGB Conc 33 g/dL (31-36); Mean Corpuscular Hemoglobin 28 pg (27-31); Mean Corpuscular Volume 85 fL (80-97); Mean Platelet Volume 7.7 fL (7.4-10.4); Nucleated Red Blood Cells % 0.1; Platelet Count 244 10^3/uL (150-450); Red Blood Count 3.22 10^6 /uL (3.70-4.87); Red Cell Distribution Width 17 % (10-15); White Blood Count 5.3 10^3/uL (3.5-10.8)
[2019-03-29] MEDS: TRAVOPROST BOTH EYES SCH (20:12)
[2019-03-29] MEDS: TIMOLOL BOTH EYES SCH (20:12)
[2019-03-29] MEDS ORDERED: NIFEdipine CAP* 10 MG PO SCH (21:00)
[2019-03-30] MEDS: ZOSYN 3.375 GM Q8H per EXTENDED INFUSION IVPB SCH ×4 (00:40→09:15)
[2019-03-30] MEDS: NS 0.9% 1000 ML** 1,000 ML IV SCH (05:45)
[2019-03-30] MEDS: Metoprolol Succinate XL TAB* 25 MG PO SCH (09:14)
[2019-03-30] MEDS: NIFEdipine CAP* 10 MG PO SCH ×3 (09:14→20:20)
[2019-03-30 10:32] LABS: ABS Basophils 0.1 10^3/ul (0-0.2); ABS Eosinophils 0.2 10^3/ul (0-0.6); ABS Lymphocytes 0.8 10^3/ul (1.0-4.8); ABS Monocytes 0.5 10^3/ul (0-0.8); ABS Neutrophils 3.6 10^3/ul (1.5-7.7); Eosinophil % 3.8 %; Hematocrit 28 % (35-47); Hemoglobin 9.5 g/dL (12.0-16.0); Lymphocyte % 15.7 %; Mean Corpuscular HGB Conc 34 g/dL (31-36); Mean Corpuscular Hemoglobin 29 pg (27-31); Mean Corpuscular Volume 84 fL (80-97); Mean Platelet Volume 7.3 fL (7.4-10.4); Platelet Count 268 10^3/uL (150-450); Red Blood Count 3.33 10^6 /uL (3.70-4.87); Red Cell Distribution Width 16 % (10-15); White Blood Count 5.1 10^3/uL (3.5-10.8)
[2019-03-30 11:06] LABS: BUN/Creatinine Ratio 13.6 (8-20); Calcium 7.6 mg/dL (8.6-10.3); EGFR African American 103.5 (>60); EGFR Non-African American 85.5 (>60); Potassium 3.2 mmol/L (3.5-5.0)
[2019-03-30] MEDS ORDERED: Potassium Chloride* LIQUID 20 MEQ/15 ML UDC PO ONE (14:43)
--- NOTE | 2019-03-30 14:43 | PN ---
Subjective Date of Service: 03/30/19 Interval History: No overnight events. She feels good today. Had a bowel movement which was not bloody. She is hungry. No pain. Objective Active Medications: Acetaminophen (Tylenol Tab*) 650 mg PO Q4H PRN PRN Reason: MILD PAIN or TEMP > 100.4 Acetaminophen (Tylenol Supp*) 650 mg IA Q4H PRN PRN Reason: MILD PAIN or TEMP > 100.4 Metoprolol Succinate (Toprol Xl Tab*) 25 mg PO DAILY [facility] Last Admin: 03/30/19 09:14 Dose: 25 mg Nifedipine (Procardia Cap*) 10 mg PO TID [facility] Last Admin: 03/30/19 14:04 Dose: 10 mg Pto:(Travoprost/ (Timolol Eye Drops)) 1 drop BOTH EYES BEDTIME [facility] Last Admin: 03/29/19 20:12 Dose: Not Given Ondansetron HCl (Zofran Inj*) 4 mg IV Q4H PRN PRN Reason: NAUSEA/VOMITING Last Admin: 03/21/19 09:24 Dose: 4 mg Pharmacy Consult (Zosyn Per Pharmacy*) 1 note FOLLOW UP .ZOSYN PER PHARMACY [facility] Vital Signs - 8 hr 03/30/19 03/30/19 03/30/19 07:12 07:55 12:02 Temperature 98.4 F 97.6 F Pulse Rate 67 69 Respiratory 18 18 18 Rate Blood Pressure 162/71 148/66 (mmHg) O2 Sat by Pulse 97 97 97 Oximetry Oxygen Devices in Use Now: None Appearance: alert, well appearing Eyes: No Scleral Icterus Ears/Nose/Mouth/Throat: NL Teeth, Lips, Gums Neck: NL Appearance and Movements; NL JVP Respiratory: Symmetrical Chest Expansion and Respiratory Effort Cardiovascular: NL Sounds; No Murmurs; No JVD Abdominal: - - incision stapled, in tact, minimal echymosis, no drainage, bowel sounds active Lymphatic: No Cervical Adenopathy Extremities: No Edema Skin: No Rash or Ulcers Result Diagrams: 03/30/19 10:27 03/30/19 10:27 Microbiology and Other Data: Microbiology 03/21/19 09:15 Aerobic Blood Culture - Preliminary Blood Venous No Growth Day 2 Anaerobic Blood Culture - Preliminary No Growth Day 2 03/21/19 09:24 Aerobic Blood Culture - Preliminary Blood Venous No Growth Day 2 Anaerobic Blood Culture - Preliminary No Growth Day 2 03/21/19 01:43 Urine Culture - Final Urine Escherichia Coli 03/21/19 12:05 Nasal Screen MRSA (PCR) - Final Nasal Mrsa Not Detected Assess/Plan/Problems-Billing Assessment: 84 year old woman with history of TIAs, HTN, glaucoma who was visiting her sons from [place] when she had abdominal discomfort and was found to have ishcemic colitis and went to the OR and was found to have 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 Now s/p R hemicolectomy with anastamosis on 03/21. Post-op course was complicated by acute RLE weakness with concern for acute CVA vs. TIA - Patient Problems (1) GI bleed Current Visit: Yes Status: Acute Code(s): K92.2 - GASTROINTESTINAL HEMORRHAGE, UNSPECIFIED SNOMED Code(s): 27504553 Comment: most likely lower and from the anastomosis seems to be resolving occurred after one dose of eliquis large-bore peripheral IV access in place hemodynamically stable Hgb recoverd after one unit of PRBCs on 03/29 eliquis DC'ed trend Hgb resume antihypertensives today (2) Status post exploratory laparotomy Current Visit: Yes Status: Acute Code(s): Z98.890 - OTHER SPECIFIED POSTPROCEDURAL STATES SNOMED Code(s): 865699267 Comment: POD #9 having BMs, no distention or pain, advance diet today (3) Ischemic colitis Current Visit: Yes Status: Acute Code(s): K55.9 - VASCULAR DISORDER OF INTESTINE, UNSPECIFIED SNOMED Code(s): 68114351 Comment: likely related to paroxysmal afib vs. athersclerosis already on statin and antiplatelet at home now s/p colectomy (4) Acute CVA (cerebrovascular accident) Current Visit: Yes Status: Acute Code(s): I63.9 - CEREBRAL INFARCTION, UNSPECIFIED SNOMED Code(s): 514328032 Comment: symptoms resolved, so suspect TIA more likely was outside the window for TPA, so treated conservatively MRI showed small vessel disease ASA started last weekend--now on hold due to bleed. DAPT deferred due to recent surgery. TTE shows PFO; lower extremity dopplers were negative failed therapeutic anticoagulation (5) PFO (patent foramen ovale) Current Visit: Yes Status: Acute Code(s): Q21.1 - ATRIAL SEPTAL DEFECT SNOMED Code(s): 874043737 Comment: lower extremity dopplers negative (6) Paroxysmal atrial fibrillation Current Visit: Yes Status: Acute Code(s): I48.0 - PAROXYSMAL ATRIAL FIBRILLATION SNOMED Code(s): 153467948 Comment: ultimately will need anticoagulation, but needs more time to heal from a surgical standpoint so on hold for now (7) Hypokalemia Current Visit: Yes Status: Acute Code(s): E87.6 - HYPOKALEMIA SNOMED Code( s): 95877250 Comment: replete again today (8) Acute respiratory failure with hypoxia Current Visit: Yes Status: Acute Code(s): J96.01 - ACUTE RESPIRATORY FAILURE WITH HYPOXIA SNOMED Code(s): 45489729 Comment: resolved (9) Anemia Current Visit: Yes Status: Acute Code(s): D64.9 - ANEMIA, UNSPECIFIED SNOMED Code(s): 627647806 Comment: normocytic and likely related to intra-op blood loss + GI bleed s/p 1U PRBCs on 03/29 Status and Disposition: inpatient; needs diet advancement, stabilization of GI bleed, and safe plan for discharge (she plans to fly back to [facility])
[2019-03-30] MEDS: KCL 20 MEQ/100 ML IVPREMIX* 20 MEQ/100 ML BAG IV SCH ×2 (15:11→19:30)
[2019-03-30] MEDS: TRAVOPROST BOTH EYES SCH (20:19)
[2019-03-30] MEDS: TIMOLOL BOTH EYES SCH (20:19)
[2019-03-31 06:58] LABS: ABS Basophils 0.1 10^3/ul (0-0.2); ABS Eosinophils 0.2 10^3/ul (0-0.6); ABS Monocytes 0.6 10^3/ul (0-0.8); ABS Neutrophils 4.1 10^3/ul (1.5-7.7); Eosinophil % 3.4 %; Hematocrit 26 % (35-47); Hemoglobin 8.9 g/dL (12.0-16.0); Lymphocyte % 16.8 %; Mean Corpuscular HGB Conc 35 g/dL (31-36); Mean Corpuscular Hemoglobin 29 pg (27-31); Mean Corpuscular Volume 83 fL (80-97); Mean Platelet Volume 7.4 fL (7.4-10.4); Nucleated Red Blood Cells % 0.1; Platelet Count 296 10^3/uL (150-450); Red Blood Count 3.08 10^6 /uL (3.70-4.87); Red Cell Distribution Width 17 % (10-15)
[2019-03-31 07:15] LABS: BUN/Creatinine Ratio 11.9 (8-20); Calcium 7.9 mg/dL (8.6-10.3); EGFR African American 101.7 (>60); EGFR Non-African American 84.1 (>60); Potassium 3.9 mmol/L (3.5-5.0)
[2019-03-31] MEDS: Metoprolol Succinate XL TAB* 25 MG PO SCH (08:15)
[2019-03-31] MEDS: NIFEdipine CAP* 10 MG PO SCH ×3 (08:15→20:48)
--- NOTE | 2019-03-31 09:29 | PN ---
Progress Note - Progress Note Date of Service: 03/31/19 SOAP: Subjective: No further bleeding, having normal BM's No abdominal pain Having some dizziness when getting up and ambulating Objective: Temp Pulse Resp BP Pulse Ox 97.7 F 69 18 152/75 97 03/31/19 07:32 03/31/19 07:32 03/31/19 07:32 03/31/19 07:32 03/31/19 07:32 Intake & Output 03/29/19 03/30/19 03/31/19 04/01/19 07:59 06:59 06:59 06:59 Intake Total 1878.8 240 Output Total Balance 1878.8 240 Weight 144 lb 8 oz Intake: IV Fluids 1011.8 ABX - ZOSYN 12.8 NS (0.9%) 999 IVPB 117 ABX - ZOSYN 117 Potassium mag Oral 750 240 Output: Urine Other: # Voids PEX: Comfortable Lungs are clear Abd is soft and non-distended. Bowel sounds are normoactive. Incision CDI. No tenderness Laboratory Results - last 24 hr 03/30/19 03/30/19 03/31/19 10:27 10:27 06:49 WBC 5.1 6.0 RBC 3.33 L 3.08 L Hgb 9.5 L 8.9 L Hct 28 L 26 L MCV 84 83 MCH 29 29 MCHC 34 35 RDW 16 H 17 H Plt Count 268 296 MPV 7.3 L 7.4 Neut % (Auto) 69.5 68.8 Lymph % (Auto) 15.7 16.8 [place] % (Auto) 10.0 10.0 Eos % (Auto) 3.8 3.4 Baso % (Auto) 1.0 1.0 Absolute Neuts (auto) 3.6 4.1 Absolute Lymphs (auto) 0.8 L 1.0 Absolute Monos (auto) 0.5 0.6 Absolute Eos (auto) 0.2 0.2 Absolute Basos (auto) 0.1 0.1 Absolute Nucleated RBC 0.0 0.0 Nucleated RBC % 0.0 0.1 Sodium 135 Potassium 3.2 L Chloride 108 Carbon Dioxide 18 L Anion Gap 9 BUN 9 Creatinine 0.66 Est GFR ( Amer) 103.5 Est GFR (Non-Af Amer) 85.5 BUN/Creatinine Ratio 13.6 Glucose 76 Calcium 7.6 L 03/31/19 06:49 WBC RBC Hgb Hct MCV MCH MCHC RDW Plt Count MPV Neut % (Auto) Lymph % (Auto) [place] % (Auto) Eos % (Auto) Baso % (Auto) Absolute Neuts (auto) Absolute Lymphs (auto) Absolute Monos (auto) Absolute Eos (auto) Absolute Basos (auto) Absolute Nucleated RBC Nucleated RBC % Sodium 134 L Potassium 3.9 Chloride 107 Carbon Dioxide 20 L Anion Gap 7 BUN 8 Creatinine 0.67 Est GFR ( Amer) 101.7 Est GFR (Non-Af Amer) 84.1 BUN/Creatinine Ratio 11.9 Glucose 76 Calcium 7.9 L Assessment: POD# 10 s/p exlap right hemicolectomy for ischemia/necrosis of cecum LGI bleeding-presumed secondary to anastomotic staple line, now stopped. Received one unit of PRBC, H/H stable. On Eliquis-now stopped Post-op CVA Plan: Advance diet to soft diet Hold Eliquis for now Physical therapy ? timing of restart anti-coagulation Care discussed with son this morning.
--- NOTE | 2019-03-31 17:06 | PN ---
Subjective Date of Service: 03/31/19 Interval History: HD 11 on 03/31 No acute overnight events. VS stable Patient complains of some generalized weakness NO bleeding. BM today-brown color No palpitation or SOB. Tolerating liquid diet Objective Active Medications: Acetaminophen (Tylenol Tab*) 650 mg PO Q4H PRN PRN Reason: MILD PAIN or TEMP > 100.4 Acetaminophen (Tylenol Supp*) 650 mg [place] Q4H PRN PRN Reason: MILD PAIN or TEMP > 100.4 Metoprolol Succinate (Toprol Xl Tab*) 25 mg PO DAILY [facility] Last Admin: 03/31/19 08:15 Dose: 25 mg Nifedipine (Procardia Cap*) 10 mg PO TID [facility] Last Admin: 03/31/19 15:20 Dose: 10 mg Pto:(Travoprost/ (Timolol Eye Drops)) 1 drop BOTH EYES BEDTIME [facility] Last Admin: 03/30/19 20:19 Dose: Not Given Ondansetron HCl (Zofran Inj*) 4 mg IV Q4H PRN PRN Reason: NAUSEA/VOMITING Last Admin: 03/21/19 09:24 Dose: 4 mg Vital Signs - 8 hr 03/31/19 03/31/19 12:00 15:10 Temperature 97.9 F 98.2 F Pulse Rate 68 67 Respiratory 18 16 Rate Blood Pressure 160/70 138/67 (mmHg) O2 Sat by Pulse 97 98 Oximetry Oxygen Devices in Use Now: None Exam: Patient is sitting on a bed and having her breakfast HEENT: Normocephalic and atraumatic Lungs: Clear with no added sounds Heart: S1/S2 heard with no murmur abdomen: Clean incision site with no redness, tenderness or discharge. Normal BS heard Extremties: NO swelling Neuro: Alert, oriented and conscious Result Diagrams: 03/31/19 06:49 03/31/19 06:49 Microbiology and Other Data: Microbiology 03/21/19 09:15 Aerobic Blood Culture - Preliminary Blood Venous No Growth Day 2 Anaerobic Blood Culture - Preliminary No Growth Day 2 03/21/19 09:24 Aerobic Blood Culture - Preliminary Blood Venous No Growth Day 2 Anaerobic Blood Culture - Preliminary No Growth Day 2 03/21/19 01:43 Urine Culture - Final Urine Escherichia Coli 03/21/19 12:05 Nasal Screen MRSA (PCR) - Final Nasal Mrsa Not Detected Assess/Plan/Problems-Billing Assessment: 84 year old woman with history of TIAs, HTN, glaucoma who was visiting her sons from [place] when she had abdominal discomfort and was found to have ishcemic colitis and went to the OR and was found to have 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 Now s/p R hemicolectomy with anastamosis on 03/21. Post-op course was complicated by acute RLE weakness, pAF and acute GI bleed; s/ p 1 U of PRBC. - Patient Problems (1) Status post exploratory laparotomy Current Visit: Yes Status: Acute Code(s): Z98.890 - OTHER SPECIFIED POSTPROCEDURAL STATES SNOMED Code(s): 935260036 Comment: -POD #10 on 03/31 -having BMs, no distention or pain -Tolerating soft diet -Incision site clean; no signs of infection (2) Acute CVA (cerebrovascular accident) Current Visit: Yes Status: Acute Code(s): I63.9 - CEREBRAL INFARCTION, UNSPECIFIED SNOMED Code(s): 924004947 Comment: -symptoms resolved, so suspect TIA more likely -MRI showed small vessel disease -ASA started last weekend--now on hold due to bleed. DAPT deferred due to recent surgery. -TTE shows PFO; lower extremity dopplers were negative -failed therapeutic anticoagulation (3) Anemia Current Visit: Yes Status: Acute Code(s): D64.9 - ANEMIA, UNSPECIFIED SNOMED Code(s): 882104002 Comment: -normocytic and likely related to intra-op blood loss + GI bleed -s/p 1U PRBCs on 03/29 -Hb stable -will repeat cbc tomorrow (4) GI bleed Current Visit: Yes Status: Acute Code(s): K92.2 - GASTROINTESTINAL HEMORRHAGE, UNSPECIFIED SNOMED Code(s): 95272286 Comment: -s/p 1 U PRBC -eliquis and aspirirn on hold -will resume eliquis after surgery clearance -No active bleeding at present (5) Ischemic colitis Current Visit: Yes Status: Acute Code(s): K55.9 - VASCULAR DISORDER OF INTESTINE, UNSPECIFIED SNOMED Code(s): 66752633 Comment: -likely related to paroxysmal afib vs. athersclerosis -already on statin and antiplatelet at home -now s/p colectomy (6) Paroxysmal atrial fibrillation Current Visit: Yes Status: Acute Code(s): I48.0 - PAROXYSMAL ATRIAL FIBRILLATION SNOMED Code(s): 578561877 Comment: -eliquis on hold -on metoprolol 25 mg -controlled -will start eliquis after surgery clears her (7) Hypertension Current Visit: Yes Status: Acute Code(s): I10 - ESSENTIAL (PRIMARY) HYPERTENSION SNOMED Code(s): 40758985 Comment: -On procardia and metoprolol (8) DVT prophylaxis Current Visit: Yes Status: Acute Code(s): Z29.9 - ENCOUNTER FOR PROPHYLACTIC MEASURES, UNSPECIFIED SNOMED Code(s): 133262631 Comment: SCD -No meds as recent GI bleed (9) Full code status Current Visit: Yes Status: Acute Code(s): Z78.9 - OTHER SPECIFIED HEALTH STATUS SNOMED Code(s): 484743315 Status and Disposition: inpatient; needs diet advancement, stabilization of GI bleed, and safe plan for discharge (she plans to fly back to [facility]) Attending: Stan Root Attestation Documenting Resident: Vidal Perea Supervising Physician: Stan Root Attending/Supervising Physician Comment: Agree with note today from Dr. Perae unless indicated here. SBO s/p FRENCH with stay complicated by afib, TIA and accute blood loss anemia from GI hemorrhage Acute blood loss anemai - s/p blood 03/29 - monitor for stability Afib with suspected TIA - unclear when she could safely start AC. Will discuss with surgery but I do not think there is a good evidence based recommendation we can make. Attestation: This service has been performed in part by a resident under the direction of a teaching physician.I, Stan Root, performed the service, or was physically present during the critical, or pacheco portions of the service, furnished by the resident. I participated in the management of the patient.
[2019-03-31] MEDS: TRAVOPROST BOTH EYES SCH (20:48)
[2019-03-31] MEDS: TIMOLOL BOTH EYES SCH (20:48)
[2019-04-01 05:37] LABS: ABS Eosinophils 0.1 10^3/ul (0-0.6); ABS Lymphocytes 0.9 10^3/ul (1.0-4.8); ABS Monocytes 0.5 10^3/ul (0-0.8); ABS Neutrophils 4.8 10^3/ul (1.5-7.7); Eosinophil % 1.5 %; Hematocrit 26 % (35-47); Hemoglobin 8.9 g/dL (12.0-16.0); Lymphocyte % 13.8 %; Mean Corpuscular HGB Conc 34 g/dL (31-36); Mean Corpuscular Hemoglobin 29 pg (27-31); Mean Corpuscular Volume 84 fL (80-97); Platelet Count 326 10^3/uL (150-450); Red Blood Count 3.13 10^6 /uL (3.70-4.87); Red Cell Distribution Width 17 % (10-15); White Blood Count 6.3 10^3/uL (3.5-10.8)
[2019-04-01 05:52] LABS: BUN/Creatinine Ratio 19.4 (8-20); Calcium 8.2 mg/dL (8.6-10.3); EGFR African American 93.6 (>60); EGFR Non-African American 77.4 (>60); Magnesium 1.7 mg/dL (1.9-2.7)
[2019-04-01] MEDS ORDERED: Magnesium Oxide TAB* 400 MG PO ONE (06:34)
--- NOTE | 2019-04-01 06:46 | PN ---
Subjective Date of Service: 04/01/19 Interval History: HD 12 on 04/01 No acute overnight events VS stable Hb stable Objective Active Medications: Acetaminophen (Tylenol Tab*) 650 mg PO Q4H PRN PRN Reason: MILD PAIN or TEMP > 100.4 Metoprolol Succinate (Toprol Xl Tab*) 25 mg PO DAILY [facility] Last Admin: 03/31/19 08:15 Dose: 25 mg Nifedipine (Procardia Cap*) 10 mg PO TID [facility] Last Admin: 03/31/19 20:48 Dose: 10 mg Pto:(Travoprost/ (Timolol Eye Drops)) 1 drop BOTH EYES BEDTIME [facility] Last Admin: 03/31/19 20:48 Dose: Not Given Ondansetron HCl (Zofran Inj*) 4 mg IV Q4H PRN PRN Reason: NAUSEA/VOMITING Last Admin: 03/21/19 09:24 Dose: 4 mg Vital Signs - 8 hr 03/31/19 04/01/19 04/01/19 23:51 00:00 03:11 Temperature 98.3 F 97.5 F Pulse Rate 79 82 Respiratory 16 16 Rate Blood Pressure 140/64 158/80 (mmHg) O2 Sat by Pulse 95 95 97 Oximetry Oxygen Devices in Use Now: None Exam: Phil is lying in a bed with no acute distress HEENT: Lungs: Heart: Abdomen: Extremities: Neuro: Result Diagrams: 04/01/19 04:27 04/01/19 04:27 Microbiology and Other Data: Microbiology 03/21/19 09:15 Aerobic Blood Culture - Preliminary Blood Venous No Growth Day 2 Anaerobic Blood Culture - Preliminary No Growth Day 2 03/21/19 09:24 Aerobic Blood Culture - Preliminary Blood Venous No Growth Day 2 Anaerobic Blood Culture - Preliminary No Growth Day 2 03/21/19 01:43 Urine Culture - Final Urine Escherichia Coli 03/21/19 12:05 Nasal Screen MRSA (PCR) - Final Nasal Mrsa Not Detected Assess/Plan/Problems-Billing Assessment: 84 year old woman with history of TIAs, HTN, glaucoma who was visiting her sons from [place] when she had abdominal discomfort and was found to have ishcemic colitis and went to the OR and was found to have 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 Now s/p R hemicolectomy with anastamosis on 03/21. Post-op course was complicated by acute RLE weakness, pAF and acute GI bleed; s/ p 1 U of PRBC. - Patient Problems (1) Status post exploratory laparotomy Current Visit: Yes Status: Acute Code(s): Z98.890 - OTHER SPECIFIED POSTPROCEDURAL STATES SNOMED Code(s): 627925534 Comment: -POD #11 on 04/01 -having BMs, no distention or pain -Tolerating soft diet -Incision site clean; no signs of infection (2) Acute CVA (cerebrovascular accident) Current Visit: Yes Status: Acute Code(s): I63.9 - CEREBRAL INFARCTION, UNSPECIFIED SNOMED Code(s): 488667413 Comment: -symptoms resolved, so suspect TIA more likely -MRI showed small vessel disease -ASA started last weekend--now on hold due to bleed. DAPT deferred due to recent surgery. -TTE shows PFO; lower extremity dopplers were negative -failed therapeutic anticoagulation (3) Anemia Current Visit: Yes Status: Acute Code(s): D64.9 - ANEMIA, UNSPECIFIED SNOMED Code(s): 627311852 Comment: -normocytic and likely related to intra-op blood loss + GI bleed -s/p 1U PRBCs on 03/29 -Hb stable -will repeat cbc tomorrow (4) GI bleed Current Visit: Yes Status: Acute Code(s): K92.2 - GASTROINTESTINAL HEMORRHAGE, UNSPECIFIED SNOMED Code(s): 26223639 Comment: -s/p 1 U PRBC -eliquis and aspirirn on hold -will resume eliquis after surgery clearance -No active bleeding at present (5) Ischemic colitis Current Visit: Yes Status: Acute Code(s): K55.9 - VASCULAR DISORDER OF INTESTINE, UNSPECIFIED SNOMED Code(s): 63229679 Comment: -likely related to paroxysmal afib vs. athersclerosis -already on statin and antiplatelet at home -now s/p colectomy (6) Paroxysmal atrial fibrillation Current Visit: Yes Status: Acute Code(s): I48.0 - PAROXYSMAL ATRIAL FIBRILLATION SNOMED Code(s): 859935345 Comment: -eliquis on hold -on metoprolol 25 mg -controlled -will start eliquis after surgery clears her (7) Hypertension Current Visit: Yes Status: Acute Code(s): I10 - ESSENTIAL (PRIMARY) HYPERTENSION SNOMED Code(s): 51417717 Comment: -On procardia and metoprolol (8) DVT prophylaxis Current Visit: Yes Status: Acute Code(s): Z29.9 - ENCOUNTER FOR PROPHYLACTIC MEASURES, UNSPECIFIED SNOMED Code(s): 289658464 Comment: SCD -No meds as recent GI bleed (9) Full code status Current Visit: Yes Status: Acute Code(s): Z78.9 - OTHER SPECIFIED HEALTH STATUS SNOMED Code(s): 164192713 Status and Disposition: inpatient; needs diet advancement, stabilization of GI bleed, and safe plan for discharge (she plans to fly back to [facility]) Attestation Documenting Resident: Eliazar Supervising Physician: Dk Attending/Supervising Physician Comment: Agree with note as outlined here by Dr. Perea unless indicated. Bowel obstruction s/p colectomy with stay complicated by afib, TIA and GIB after starting eliquis Afib/TIA - unclear when it would be safe to restart anticoagulation. Discussion with family favors holding AC now but wants to discuss further before final decision. Surgery to weigh in their opinion regarding safety to restart AC for afib/TIA. ASA and plavix similarly on hold. Can consider at least restarting aspirin if full dose anticoagulation not started. Disposition pending resolution of above and plan to safely transition to location prior to transatlantic flight home. Attestation: This service has been performed in part by a resident under the direction of a teaching physician.Dk Easton, performed the service, or was physically present during the critical, or pacheco portions of the service, furnished by the resident. I participated in the management of the patient.
[2019-04-01] MEDS: NIFEdipine CAP* 10 MG PO SCH ×3 (08:52→20:49)
[2019-04-01] MEDS: Metoprolol Succinate XL TAB* 25 MG PO SCH (08:52)
--- NOTE | 2019-04-01 12:10 | PN ---
Progress Note - Progress Note Date of Service: 04/01/19 SOAP: Subjective: Comfortable in bed, NAD, tolerating diet, + BM no blood son at bedside [] Objective: Vital Signs Temp 98.8 F 04/01/19 07:57 Pulse 72 04/01/19 07:57 Resp 16 04/01/19 07:57 BP 146/69 04/01/19 07:57 Pulse Ox 95 04/01/19 08:00 Intake & Output 03/31/19 04/01/19 04/01/19 18:59 06:59 18:59 Intake Total 480 240 240 Output Total 0 Balance 480 240 240 Weight 145 lb 14.4 oz Intake: Oral 480 240 240 Output: Urine 0 PEX: GEN: NAD CHEST: CTA B/L CVS: RRR ABD: midline incision C/D/I, [place] in place ND/DT, + BS's EXT: calves soft, non tender [] Assessment: [] Plan: []
--- NOTE | 2019-04-01 12:20 | PN ---
Progress Note - Progress Note Date of Service: 04/01/19 SOAP: Subjective:NAD, comfortable in bed, + BM non bloody [] Objective: Vital Signs Temp 98.8 F 04/01/19 07:57 Pulse 72 04/01/19 07:57 Resp 16 04/01/19 07:57 BP 146/69 04/01/19 07:57 Pulse Ox 95 04/01/19 08:00 Intake & Output 03/31/19 04/01/19 04/01/19 18:59 06:59 18:59 Intake Total 480 240 240 Output Total 0 Balance 480 240 240 Weight 145 lb 14.4 oz Intake: Oral 480 240 240 Output: Urine 0 Hgb-8.9, (8.9) PEX: GEN: NAD Chest: CTA B/L CVS: RRR Abd: soft, ND/NT, incision C/D/I buffy in place EXT: calves soft B/L [] Assessment: 84 yo female, POD 11 s/p right hemicolectomy for ischemia/necrosis of cecum, had lower GI bleeding which appears to be resolved given 1 unit PRBC's. Hgb stable 8.9 03/31, 8.9 04/01. Eliquis still on hold [] Plan: will d/w Dr Garcia removal of buffy and resumption of eliquis. Ambulate, PT, current management. Above d/w son who translated for patient. []
[2019-04-01] MEDS: Atorvastatin* 40 MG TAB PO SCH (17:37)
[2019-04-01] MEDS ORDERED: Metoprolol Tartrate IV* 1 MG/ML 5 ML VIAL IV PRN (18:48)
[2019-04-01] MEDS: TRAVOPROST BOTH EYES SCH (20:52)
[2019-04-01] MEDS: TIMOLOL BOTH EYES SCH (20:52)
--- NOTE | 2019-04-02 06:31 | PN ---
Subjective Date of Service: 04/02/19 Interval History: HD 13 on 04/02 Overnight- HR goes to 130-140 while moving around; HR 80-90 while resting VS stable Does not have any complaint Had BM; no blood or black tarry stool No dizziness and plapitation at present Objective Active Medications: Acetaminophen (Tylenol Tab*) 650 mg PO Q4H PRN PRN Reason: MILD PAIN or TEMP > 100.4 Atorvastatin Calcium (Lipitor*) 40 mg PO 1700 [facility] Last Admin: 04/01/19 17:37 Dose: 40 mg Metoprolol Succinate (Toprol Xl Tab*) 25 mg PO DAILY [facility] Last Admin: 04/01/19 08:52 Dose: 25 mg Metoprolol Tartrate (Lopressor Iv*) 5 mg IV Q8H PRN PRN Reason: Heart rate>120 Nifedipine (Procardia Cap*) 10 mg PO TID [facility] Last Admin: 04/01/19 20:49 Dose: 10 mg Pto:(Travoprost/ (Timolol Eye Drops)) 1 drop BOTH EYES BEDTIME [facility] Last Admin: 04/01/19 20:52 Dose: Not Given Ondansetron HCl (Zofran Inj*) 4 mg IV Q4H PRN PRN Reason: NAUSEA/VOMITING Last Admin: 03/21/19 09:24 Dose: 4 mg Vital Signs - 8 hr 04/01/19 04/02/19 04/02/19 23:31 00:00 02:53 Temperature 98.5 F 97.7 F Pulse Rate 90 97 Respiratory 16 18 Rate Blood Pressure 135/61 147/71 (mmHg) O2 Sat by Pulse 97 97 98 Oximetry 04/02/19 05:09 Temperature Pulse Rate Respiratory Rate Blood Pressure (mmHg) O2 Sat by Pulse 97 Oximetry Oxygen Devices in Use Now: None Exam: Patient is lying in a bed with no acute distress HEENT: normocephalic and atraumatic Lungs: clear with no added sounds Heart: S1/S2 heard with no murmur Abdomen: incsion site clean. Soft,nondistended and nontender Extremities: normal Neuro: alert, conscious and oriented Result Diagrams: 04/02/19 06:42 04/02/19 06:42 Microbiology and Other Data: Microbiology 03/21/19 09:15 Aerobic Blood Culture - Preliminary Blood Venous No Growth Day 2 Anaerobic Blood Culture - Preliminary No Growth Day 2 03/21/19 09:24 Aerobic Blood Culture - Preliminary Blood Venous No Growth Day 2 Anaerobic Blood Culture - Preliminary No Growth Day 2 03/21/19 01:43 Urine Culture - Final Urine Escherichia Coli 03/21/19 12:05 Nasal Screen MRSA (PCR) - Final Nasal Mrsa Not Detected Assess/Plan/Problems-Billing Assessment: 84 year old woman with history of TIAs, HTN, glaucoma who was visiting her sons from [place] when she had abdominal discomfort and was found to have ishcemic colitis and went to the OR and was found to have 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 Now s/p R hemicolectomy with anastamosis on 03/21. Post-op course was complicated by acute RLE weakness, pAF and acute GI bleed; s/ p 1 U of PRBC. - Patient Problems (1) Status post exploratory laparotomy Current Visit: Yes Status: Acute Code(s): Z98.890 - OTHER SPECIFIED POSTPROCEDURAL STATES SNOMED Code(s): 319780330 Comment: -POD #12 on 04/02 -having BMs, no distention or pain -Tolerating soft diet -Incision site clean; no signs of infection (2) Acute CVA (cerebrovascular accident) Current Visit: Yes Status: Acute Code(s): I63.9 - CEREBRAL INFARCTION, UNSPECIFIED SNOMED Code(s): 496811811 Comment: -symptoms resolved, so suspect TIA more likely -MRI showed small vessel disease -will start aspirin todat -watch for any bleeding (3) Anemia Current Visit: Yes Status: Acute Code(s): D64.9 - ANEMIA, UNSPECIFIED SNOMED Code(s): 043756853 Comment: -normocytic and likely related to intra-op blood loss + GI bleed -s/p 1U PRBCs on 03/29 -Hb stable -will repeat cbc tomorrow (4) GI bleed Current Visit: Yes Status: Acute Code(s): K92.2 - GASTROINTESTINAL HEMORRHAGE, UNSPECIFIED SNOMED Code(s): 63054064 Comment: -s/p 1 U PRBC -started aspirin -will resume eliquis after surgery clearance -No active bleeding at present (5) Ischemic colitis Current Visit: Yes Status: Acute Code(s): K55.9 - VASCULAR DISORDER OF INTESTINE, UNSPECIFIED SNOMED Code(s): 40881060 Comment: -likely related to paroxysmal afib vs. athersclerosis -already on statin and antiplatelet at home -now s/p colectomy (6) Paroxysmal atrial fibrillation Current Visit: Yes Status: Acute Code(s): I48.0 - PAROXYSMAL ATRIAL FIBRILLATION SNOMED Code(s): 528047655 Comment: -eliquis on hold -metoprolol increased to 50 mg; monitor for noy and pauses -controlled -will start eliquis after surgery clears her (7) Hypertension Current Visit: Yes Status: Acute Code(s): I10 - ESSENTIAL (PRIMARY) HYPERTENSION SNOMED Code(s): 79565462 Comment: -On procardia and metoprolol (8) DVT prophylaxis Current Visit: Yes Status: Acute Code(s): Z29.9 - ENCOUNTER FOR PROPHYLACTIC MEASURES, UNSPECIFIED SNOMED Code(s): 819103068 Comment: SCD -No meds as recent GI bleed (9) Full code status Current Visit: Yes Status: Acute Code(s): Z78.9 - OTHER SPECIFIED HEALTH STATUS SNOMED Code(s): 254798954 Status and Disposition: inpatient started on regular diet Attending: Stan Root Attestation Documenting Resident: Vidal Perea Supervising Physician: Stan Root Attending/Supervising Physician Comment: Agree with plan as outlined here in Dr. Vargas's note unless indicated. Correction - patient and family have elected to restart full dose anticoagulation after returning to country of origin. Attestation: This service has been performed in part by a resident under the direction of a teaching physician.I, Stan Root, performed the service, or was physically present during the critical, or pacheco portions of the service, furnished by the resident. I participated in the management of the patient.
[2019-04-02 07:20] LABS: ABS Eosinophils 0.1 10^3/ul (0-0.6); ABS Lymphocytes 1.1 10^3/ul (1.0-4.8); ABS Monocytes 0.6 10^3/ul (0-0.8); ABS Neutrophils 4.6 10^3/ul (1.5-7.7); Eosinophil % 1.4 %; Hematocrit 27 % (35-47); Hemoglobin 9.8 g/dL (12.0-16.0); Lymphocyte % 17.5 %; Mean Corpuscular HGB Conc 36 g/dL (31-36); Mean Corpuscular Hemoglobin 30 pg (27-31); Mean Corpuscular Volume 84 fL (80-97); Mean Platelet Volume 7.9 fL (7.4-10.4); Platelet Count 356 10^3/uL (150-450); Red Blood Count 3.28 10^6 /uL (3.70-4.87); Red Cell Distribution Width 18 % (10-15); White Blood Count 6.4 10^3/uL (3.5-10.8)
[2019-04-02 07:36] LABS: BUN/Creatinine Ratio 24.4 (8-20); Calcium 8.5 mg/dL (8.6-10.3); EGFR African American 85.3 (>60); EGFR Non-African American 70.5 (>60); Magnesium 1.7 mg/dL (1.9-2.7)
[2019-04-02] MEDS ORDERED: Magnesium Sulfate IV* 3 GM in NS 0.9% 100 ML* 100 ML IVPB ONE (08:00)
[2019-04-02] MEDS: Metoprolol Succinate XL TAB* 25 MG PO SCH (08:44)
[2019-04-02] MEDS: NIFEdipine CAP* 10 MG PO SCH ×3 (08:44→20:14)
[2019-04-02] MEDS: Aspirin EC TAB* 81 MG TAB.EC PO SCH (11:17)
--- NOTE | 2019-04-02 15:02 | PN ---
Progress Note - Progress Note Date of Service: 04/02/19 SOAP: Subjective: Comfortable in bed, NAD, + non bloody BM's Ambulating well [] Objective: Vital Signs Temp 98.3 F 04/02/19 11:16 Pulse 69 04/02/19 11:16 Resp 20 04/02/19 11:16 BP 115/54 04/02/19 11:16 Pulse Ox 98 04/02/19 11:16 Intake & Output 04/01/19 04/02/19 04/02/19 18:59 06:59 18:59 Intake Total 780 210 685 Balance 780 210 685 Weight 136 lb 12.8 oz Intake: IV Fluids 15 mag 15 IVPB 110 mag 110 Oral 780 210 560 Laboratory Tests 03/30/19 03/31/19 04/01/19 10:27 06:49 04:27 Hgb 9.5 L 8.9 L 8.9 L PEX: GEN: NAD CHEST: CTA B/L CVS: RRR ABD: soft, ND/NT midline incision buffy in place incision C/D/I EXT: calves soft non tender [] Assessment: 84 yo female, POD 12 s/p right hemicolectomy for ischemia/necrosis of cecum, had lower GI bleeding which appears to be resolved was given 1 unit PRBC's. Hgb stable 9.8 11/, 8.9 / , 8.9 /. Eliquis has been held [] Plan: Will D/C buffy now. Surgically stable, resume eliquis per medicine. Above d/w pt, son translated. all questions answered Please call if needed []
[2019-04-02] MEDS: Atorvastatin* 40 MG TAB PO SCH (17:19)
[2019-04-02] MEDS: TRAVOPROST BOTH EYES SCH (20:15)
[2019-04-02] MEDS: TIMOLOL BOTH EYES SCH (20:15)
[2019-04-03 05:11] LABS: ABS Eosinophils 0.1 10^3/ul (0-0.6); ABS Lymphocytes 1.1 10^3/ul (1.0-4.8); ABS Monocytes 0.6 10^3/ul (0-0.8); ABS Neutrophils 5.8 10^3/ul (1.5-7.7); Eosinophil % 1.1 %; Hematocrit 26 % (35-47); Hemoglobin 8.9 g/dL (12.0-16.0); Lymphocyte % 14.6 %; Mean Corpuscular HGB Conc 34 g/dL (31-36); Mean Corpuscular Hemoglobin 29 pg (27-31); Mean Corpuscular Volume 84 fL (80-97); Mean Platelet Volume 7.3 fL (7.4-10.4); Platelet Count 330 10^3/uL (150-450); Red Cell Distribution Width 18 % (10-15); White Blood Count 7.7 10^3/uL (3.5-10.8)
[2019-04-03 05:32] LABS: BUN/Creatinine Ratio 30.8 (8-20); Calcium 7.9 mg/dL (8.6-10.3); EGFR African American 71.4 (>60); Potassium 3.8 mmol/L (3.5-5.0)
[2019-04-03] MEDS: Aspirin EC TAB* 81 MG TAB.EC PO SCH (08:49)
[2019-04-03] MEDS: Metoprolol Succinate XL TAB* 25 MG PO SCH (08:49)
[2019-04-03] MEDS: NIFEdipine CAP* 10 MG PO SCH (09:08)
[2019-04-03 11:31] VITALS: BP 134/56
--- NOTE | 2019-04-03 20:00 | DS ---
DISCHARGE SUMMARY: DATE OF ADMISSION: 03/21/19 DATE OF DISCHARGE: 04/03/19 PRIMARY CARE PROVIDER: Is in [place]. DISPOSITION ON DISCHARGE: Home. CONDITION ON DISCHARGE: Good. PRIMARY DIAGNOSES: 1. Ischemic colitis, status post right hemicolectomy. 2. Transient ischemic attack. 3. Atrial fibrillation. 4. Acute blood loss anemia secondary to gastrointestinal bleed in the setting of initiation of Eliquis. SECONDARY DIAGNOSES: Include: 1. Hypertension. 2. Acute kidney injury. 3. Urinary tract infection with Escherichia coli pansensitive to all antibiotics. 4. Patent foramen ovale. MEDICATIONS ON DISCHARGE: Include: 1. Travoprost/timolol 1 drop both eyes at bedtime daily. 2. Omeprazole 1 tab daily. 3. Ondansetron ODT 4 mg every 8 hours as needed for nausea. 4. Nifedipine 10 mg 3 times a day. 5. Metoprolol succinate 50 mg daily. 6. Atorvastatin 40 mg in the evening. 7. Aspirin 81 mg daily. 8. Acetaminophen 650 mg every 4 hours as needed for pain or fever. PERTINENT LABORATORY DATA: Hemoglobin on presentation 11.5, yonas at 7.2 in the setting of GI bleed, was 8.9 on the day of discharge. Creatinine on the day of discharge is 0.91. Full set of labs on the day of discharge: Sodium 133, potassium 3.8, chloride 107, bicarb 22, BUN 28, creatinine 0.91, glucose 89, calcium 7.9, magnesium 2.0, white blood cell count 7.7, hemoglobin 8.9, hematocrit 26, platelets 330. PERTINENT IMAGING: CT abdomen and pelvis, impression: Excess thickening noted at the cecum and ascending colon with surrounding inflammatory changes. The cecum was noted to be dilated measuring approximately 6.7 x 5.2 cm. There is question of pneumatosis noted in the cecum. Findings are concerning for colitis , gallbladder wall thickening with large gallstone noted within the gallbladder. Compression deformity of L1 vertebral body, which appears to be chronic in nature. Clinical correlation for point tenderness, MRI may be performed for further evaluation if necessary. Brain MRI, impression: No acute intracranial abnormalities. Moderate chronic small vessel ischemic disease is likely. Lower extremity Doppler: No right or left lower extremity deep venous thrombosis. Transthoracic echocardiogram, impression: Left ventricular ejection fraction 60 % to 65%, wall motion is normal. No regional wall motion abnormalities. Grade 1 diastolic dysfunction. Left atrium is mildly dilated. Right atrium is normal in size. The atrial septum appears aneurysmal. A PFO is demonstrated by agitated saline contrast. Positive bubble study, rocpn-my-iece mitral regurgitation, trileaflet aortic valve, [id number] regurgitation, moderate tricuspid regurgitation. No significant pulmonic regurgitation. PROCEDURES PERFORMED DURING HOSPITAL STAY: 03/21/19, exploratory laparotomy with right hemicolectomy and anastomosis. HISTORY OF PRESENT ILLNESS AND HOSPITAL COURSE: This is an 84-year-old female, visiting the [place] from [place], who developed acute abdominal pain, nausea, vomiting, presented to the hospital where she was found with colitis involving the cecum and the ascending colon on CAT scan, mildly elevated leukocytosis on presentation. She proceeded to the operating room on 03/21/19, underwent exploratory laparotomy with right hemicolectomy and anastomosis without complication. Following the procedure the following day, she was noted as well right lower and right upper extremity weakness, scored a 3 on the NIH stroke scale when evaluated by our neurological services. She underwent assessment for a TIA versus stroke as indicated above. Echocardiogram was notable for a PFO with subsequent development of atrial fibrillation, rapid ventricular response, requiring IV metoprolol and ultimately started on oral metoprolol succinate with rate control. Her neurological deficits resolved. She was given the diagnosis of TIA in the setting of right-sided weakness. Her clinical course was further complicated by acute blood loss anemia, requiring 1 unit of blood after the initiation of Xarelto for newly diagnosed atrial fibrillation. The Xarelto was discontinued and her bleeding resolved on its own. Conversation was held with the family as well as the patient and their option was to withhold reinitiation of full dose anticoagulation until returning home to [place] and following up with their doctors. We did not disagree with this choice given the continued risk for bleeding for full-dose anticoagulation. She was started on aspirin for TIA; however, dual antiplatelet therapy with Plavix was not started in the setting of the above bleed. There were no other complications during the course of the hospital stay. The patient was tolerating regular diet at the time of discharge and ambulating. The patient will be discharged today. Her son has decided to book a flight this evening from [facility] to return to [place]. She will have a followup visit with her PCP on the same day or the following day. We did advise against flying on the same day of discharge; however, the patient's son decided to leave regardless. At followup please: 1. Initiate full dose anticoagulation for atrial fibrillation especially in the setting of TIA when deemed a safe duration from surgery, which occurred on 03/21/19. 2. No other specific labs or vitals that need followup. TIME SPENT: Greater than 60 minutes was spent on the discharge of this patient , greater than half was spent [id number] with the patient. [id number]/[facility] #: [id number] ALEX
== END 2019-04-03 12:59 | disposition home or self-care (01) | DRG 329 ==
LOC: ED 23:50 → MED 03-21 08:47 → ICU 03-21 11:09 → MEDTELE 03-23 11:19
PROVIDERS: ADMIT Internal Medicine; ATTEND Internal Medicine
PROC: 0DTF0ZZ Resection of Right Large Intestine, Open Approach (ICD-10-PCS; principal; 2019-03-21 11:45)
PROC: 30233N1 Transfusion of Nonautologous Red Blood Cells into Peripheral Vein, Percutaneous Approach (ICD-10-PCS; 2019-03-29)
DX: K55.039 Acute (reversible) ischemia of large intestine, extent unspecified (principal); J96.01 Acute respiratory failure with hypoxia; D62 Acute posthemorrhagic anemia; E87.1 Hypo-osmolality and hyponatremia; N17.9 Acute kidney failure, unspecified; E87.2 Acidosis; I47.1 Supraventricular tachycardia; K56.7 Ileus, unspecified; Q21.1 Atrial septal defect; G45.9 Transient cerebral ischemic attack, unspecified; N39.0 Urinary tract infection, site not specified; K55.019 Acute (reversible) ischemia of small intestine, extent unspecified; I10 Essential (primary) hypertension; H54.8 Legal blindness, as defined in USA; H40.9 Unspecified glaucoma; B96.20 Unspecified Escherichia coli [E. coli] as the cause of diseases classified elsewhere; E78.5 Hyperlipidemia, unspecified; E83.42 Hypomagnesemia; R29.703 NIHSS score 3; E87.6 Hypokalemia; I48.0 Paroxysmal atrial fibrillation; K21.9 Gastro-esophageal reflux disease without esophagitis; Z88.8 Allergy status to other drugs, medicaments and biological substances; Z72.89 Other problems related to lifestyle; Z86.73 Personal history of transient ischemic attack (TIA), and cerebral infarction without residual deficits; Z79.82 Long term (current) use of aspirin; Z79.899 Other long term (current) drug therapy
CPT/HCPCS: 36415; 70496; 70498; 70551; 71045; 74177; 76705; 80048; 80053; 80061; 80076; 81003; 81015; 82150; 82607; 82746; 83605; 83690; 83735; 84100; 84436; 84439; 84443; 85014; 85018; 85025; 85027; 85610; 85730; 86140; 86850; 86900; 86901; 86922; 87040; 87077; 87086; 87186; 87641; 88307; 93005; 93306; 93970; 96374; 99284; A9270-GY; C1776; J0153; J0330; J0696; J1160; J1170; J1644; J2270; J2405; J2543; J2704; J3010; J3475; J3480; J3490; P9040; Q9967